=== PATIENT | male | born 1975 | race Two or more races ===

== ENCOUNTER 2024-08-02 20:17 | Inpatient (IN) | payer MEDICAID, SELFPAY ==
[2024-08-02 20:19] VITALS: BMI 23.3
--- NOTE | 2024-08-02 21:16 | EKG_ITS ---
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
[2024-08-02 21:27] VITALS: BP 163/90; PULSE 65; RESP 18; TEMP 37.2; O2SAT 99
--- NOTE | 2024-08-02 21:37 | PD.EDRME ---
Rapid Medical Screening Exam [facility] Arrival date/time: 08/02/24 20:17 49M with history of DM and alcohol use presents to ED with 2 days of epigastric pain that radiates to chest/back for 2 days. Patient was here about 6 years ago for similar symptoms and had pancreatitis then. Patient states symptoms are similar. Patient drank a lot of alcohol in the last 3 days. Chief Complaint: Abdominal Pain Vital signs: Vital Signs Temperature 98.9 F 08/02/24 21:27 Pulse Rate 65 08/02/24 21:27 Respiratory Rate 18 08/02/24 21:27 Blood Pressure 163/90 H 08/02/24 21:27 Pulse Oximetry (%) 99 08/02/24 21:27 Oxygen Delivery Method Room Air 08/02/24 21:27
[2024-08-02 22:01] LABS: Basophils % (Auto) 0 % (0-2.5); Eosinophils % (Auto) 0 % (0-10); Hematocrit 41.3 % (41.0-53.0); Hemoglobin 14.8 g/dL (13.5-16.0); Immature Granulocytes % (Auto) 1 % (0-0); Immature Granulocytes Auto 0.08 Thou/mm3 (0.00-0.00); Lymphocytes # (Auto) 0.9 Thou/mm3 (1.0-4.8); Lymphocytes % (Auto) 5 % (10-50); Mean Corpuscular HGB Conc 35.8 g/dl (31.0-37.0); Mean Corpuscular Volume 92 fL (80-100); Monocytes # (Auto) 0.7 Thou/mm3 (0.0-0.8); Monocytes % (Auto) 4 % (0-12); Neutrophils # (Auto) 15.4 Thou/mm3 (1.8-7.7); Neutrophils % (Auto) 90 % (37-80); Nucleated Red Blood Cell % 0 /100 WBC (0); Platelet Count 170 Thou/mm3 (140-440); RDW Standard Deviation 41.4 fL (35.1-43.9); Red Blood Count 4.49 Miln/mm3 (4.50-5.90); White Blood Count 17.1 Thou/mm3 (3.8-10.6)
[2024-08-02 22:22] LABS: Anion Gap 16 (7-16); Blood Urea Nitrogen 15 mg/dL (9-23); Carbon Dioxide 21.3 mMol/L (20.0-31.0); Chloride 99 mMol/L (98-107); Creatinine (Component) 0.8 mg/dL (0.6-1.3); Sodium 136 mMol/L (136-145)
[2024-08-02 22:23] LABS: Alanine Aminotransferase 30 U/L (10-49); Albumin, Serum 4.2 gm/dL (3.5-5.0); Albumin/Globulin Ratio 1.7 (1.2-2.2); Alcohol, Blood Medical < 10.0 mg/dL (0-10.0); Alkaline Phosphatase 115 U/L (46-116); Aspartate Amino Transferase 41 U/L (0-34); BUN/Creatinine Ratio 19 Ratio (12-20); Bilirubin,Total 1.7 mg/dL (0.3-1.2); Estimated Creatinine Clearance 96.1 mL/min (>60); Globulin 2.5 gm/dL (2.3-3.5); Glucose 173 mg/dL (74-106); Lipase 337 U/L (12-53); Osmolality,Calculated 276 (275-295); Total Protein 6.7 gm/dL (5.7-8.2); eGFR > 60 See Note
--- NOTE | 2024-08-02 22:50 | PC.NURSE ---
Pt to room 6 from lobby at this time; assumed care.
--- NOTE | 2024-08-02 22:53 | PD.EDABDPN ---
ED Abdominal Pain RME/HPI General Chief Complaint: Abdominal Pain Stated complaint: ABD,BACK,CHEST PAIN Arrival date/time: 08/02/24 20:17 RME / HPI RME / HPI narrative: 08/02/24 20:17 49M with history of DM and alcohol use presents to ED with 2 days of epigastric pain that radiates to chest/back for 2 days. Patient was here about 6 years ago for similar symptoms and had pancreatitis then. Patient states symptoms are similar. Patient drank a lot of alcohol in the last [address] Mckinnon?s Main ED Evaluation: 49yo male presents to the ED for a chief complaint of severe epigastric pain x 1 day. Patient states his pain radiates to his back, reporting he has previously experienced similar symptoms. states the patient has been drinking alcohol heavily for the last 3 days. Patient reports associated nausea. Denies any fever, chills, diarrhea, constipation or any other associated symptoms. No known allergies. Related Data Home Medications ?Medication ?Instructions ?Recorded ?Confirmed No Known Home Medications 05/11/19 05/11/19 Allergies Allergy/AdvReac Type Severity Reaction Status Date / Time No Known Allergies Allergy Verified 05/11/19 15:18 Review of Systems Review of Systems Systems Reviewed: All systems reviewed, normal except as documented Past Medical History Past Medical History NEUROLOGIC: Negative Neurological Disorders CARDIAC: Negative Cardiac Disorders or Congestive Heart Failure RESPIRATORY: Negative Chronic Obstructive Pulmonary Disease (COPD) GASTROINTESTINAL: Positive Gastrointestinal Disorders and Pancreatitis GENITOURINARY: Negative Genitourinary Disorders or Renal Disease MUSCULOSKELETAL: Negative Musculoskeletal Disorders ENDOCRINE: Negative Endocrine Disorders, Diabetes Mellitus Type 1 or Diabetes Mellitus Type 2 HEMATOLOGIC: Negative Blood Disorders OTHER HISTORY: Negative Autoimmune Disease, Anesthesia Reactions, MRSA, Clostridium Difficile or Cancer Family History FAMILY HISTORY: Negative Family Psychiatric Problems, Family Respiratory Disorders, Family Cardiac Disorders, Family Gastrointestinal Problems, Family Cancer, Family Surgery or Family Anesthesia Reaction Surgical History SURGICAL: Negative Endocrine Surgery, Ear Surgery, Abdominal Surgery, Nephrectomy, Joint Replacement, Neurologic Surgery or Vasectomy Social History SMOKING STATUS: Current every day smoker SECOND HAND EXPOSURE: Yes ED Exam Narrative Physical exam: GENERAL APPEARANCE: alert and oriented x 4, well-developed, well-nourished, no acute distress VITALS: All vitals were reviewed and the pulse ox is 99% on room air, which is normal according to my interpretation. HEENT: Normocephalic, atraumatic; pupils equal, round, reactive to light; EOMI; mucous membranes pink, moist; oropharynx clear NECK: Supple LUNGS: CTABL; no wheezes, no rales, no rhonchi HEART: Regular rate, regular rhythm; normal S1, S2; no murmurs ABDOMEN: non distended; normal BS; soft, [id number] epigastric tenderness, and of the upper abdomen generally; voluntary guarding, no rebound, no rigidity; no masses, no organomegaly, no hernia BACK: no CVA tenderness EXTREMITIES: atraumatic; no edema NEUROLOGIC: awake; alert and oriented x4; cranial nerves II-XII grossly intact; no focal sensory or motor deficits PSYCHIATRIC: appropriate mood and affect SKIN: warm, dry, normal color; no rashes Course Quality Measures none Orders Category Date Time Status Admit to Inpatient Status Routine Admission 08/03/24 00:44 Active Patient Condition Routine Admission 08/03/24 00:44 Ordered Bedside Blood Glucose AC Care 08/03/24 01:[address] Screening NOW Care 08/02/24 23:52 Active 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 Care 08/02/24 23:38 Active Continuous Pulse Oximetry STAT Care 08/02/24 23:38 Active EKG (ED ONLY) *Do not use* NOW Care 08/02/24 21:16 Completed Insert IV STAT Care 08/02/24 23:37 Active NPO NOW Care 08/03/24 01:04 Active NPO STAT Care 08/02/24 23:37 Active Notify provider NEEDED Care 08/03/24 00:44 Active Obtain weight X1 Care 08/03/24 00:50 Active Vital Signs, Non-Routine Q4H Care 08/03/24 01:00 Ordered Vital Signs, Non-Routine Q4H Care 08/03/24 05:00 Ordered Vital Signs, Non-Routine Q4H Care 08/03/24 09:00 Ordered Vital Signs, Non-Routine Q4H Care 08/03/24 13:00 Ordered Vital Signs, Non-Routine Q4H Care 08/03/24 17:00 Ordered Vital Signs, Non-Routine Q4H Care 08/03/24 21:00 Ordered Diet NPO (NOW) Diet 08/03/24 01:[address] abdomen pelvis w con Stat Exams 08/02/24 23:52 Ordered EKG (ED Only) Stat Exams 08/02/24 21:16 Draft XR chest 1V portable Stat Exams 08/02/24 23:50 Completed Alcohol, Blood Medical Stat Lab 08/02/24 21:46 Completed CBC AM DRAW Lab 08/03/24 05:00 Ordered CBC AM DRAW Lab 08/04/24 05:00 Ordered CBC AM DRAW Lab 08/05/24 05:00 Ordered CBC Stat Lab 08/02/24 21:46 Completed CMP [Comprehensive Metabolic Panel] Stat Lab 08/02/24 21:46 Completed Comprehensive Metabolic Panel AM DRAW Lab 08/03/24 05:00 Ordered Comprehensive Metabolic Panel AM DRAW Lab 08/04/24 05:00 Ordered Comprehensive Metabolic Panel AM DRAW Lab 08/05/24 05:00 Ordered Drug Screen,Urine Stat Lab 08/03/24 01:04 Ordered Folate Stat Lab 08/03/24 00:57 Ordered Folate, RBC* Stat Lab 08/03/24 Ordered Lipase Stat Lab 08/02/24 21:46 Completed Lipid Panel Routine Lab 08/03/24 00:53 Stop Req Lipid Panel Stat Lab 08/03/24 01:08 Ordered Magnesium AM DRAW Lab 08/03/24 05:00 Ordered Magnesium AM DRAW Lab 08/04/24 05:00 Ordered Magnesium AM DRAW Lab 08/05/24 05:00 Ordered Magnesium Stat Lab 08/02/24 21:46 Completed Partial Thromboplastin Time AM DRAW Lab 08/04/24 05:00 Ordered Partial Thromboplastin Time Stat Lab 08/02/24 21:46 Completed Phosphorous AM DRAW Lab 08/04/24 05:00 Ordered Phosphorous AM DRAW Lab 08/05/24 05:00 Ordered Phosphorous AM DRAW Lab 08/06/24 05:00 Ordered Prothrombin Time with INR AM DRAW Lab 08/04/24 05:00 Ordered Prothrombin Time with INR Stat Lab 08/02/24 21:46 Completed Thyroid Stimulating Hormone AM DRAW Lab 08/03/24 05:00 Ordered Acetaminophen Tab [Tylenol Tab] Med 08/03/24 00:50 Active 650 mg PO Q6H PRN Atorvastatin Calcium [Lipitor] Med 08/03/24 21:00 Ordered 40 mg PO HS Dextrose 50% Syr [D50w Syringe Abboject] Med 08/03/24 01:02 Active 25 ml IV Q15MIN PRN Dextrose 50% Syr [D50w Syringe Abboject] Med 08/03/24 01:02 Active 50 ml IV Q15MIN PRN Enoxaparin [Lovenox] Med 08/03/24 09:00 Ordered 40 mg SC QDAY Folic Acid Med 08/03/24 09:00 Ordered 1 mg PO BID Glucagon Inj Med 08/03/24 01:02 Active 1 mg IM Q15MIN PRN HYDROcodone*/APAP 5/325 [Carver 5/325] Med 08/03/24 00:50 Active 1 tab PO Q6HR PRN HYDROmorphone INJ [Dilaudid Inj] Med 08/02/24 23:45 Active 1 mg IVP Q30M PRN INSULIN LISPRO (AdmeLOG) [HumaLOG] Med 08/03/24 07:30 Ordered See Protocol SC AC LORazepam [Ativan Inj] Med 08/03/24 00:57 Active 1 mg IV Q2HR PRN LORazepam [Ativan] Med 08/03/24 00:57 Active 1 mg PO Q4HR PRN Ondansetron Inj [Zofran Inj] Med 08/03/24 00:50 Ordered 4 mg IV Q6H PRN Ondansetron Inj [Zofran Inj] Med 08/02/24 23:39 Discontinued 4 mg IV X1 ONE Pantoprazole [Protonix] Med 08/03/24 09:00 Ordered 40 mg PO QDAY Ringers Lactated 1000 ml [Lactated Ringers] 1,000 ml Med 08/03/24 01:00 Ordered IV 200 mls/hr Sodium Chloride 0.9% 1000 ml [Ns] 1,000 ml Med 08/02/24 23:37 Discontinued IV 999 mls/hr Thiamine [Vitamin B-1] Med 08/03/24 09:00 Ordered 100 mg PO BID Code Status Routine Oth 08/03/24 00:44 Ordered Vital Signs Vital signs: Vital Signs Temperature 98.9 F 08/02/24 21:27 Pulse Rate 65 08/02/24 21:27 Respiratory Rate 18 08/02/24 21:27 Blood Pressure 163/90 H 08/02/24 21:27 Pulse Oximetry (%) 99 08/02/24 21:27 Oxygen Delivery Method Room Air 08/02/24 21:27 Abdominal Pain MDM MDM Narrative MDM Narrative:: Scribe Attestation: 08/02/24 - Sabiha Joya am scribing for and in the presence of Dr. Mckinnon. Patient data External records reviewed:: [facility] previous records (Per chart review, patient was admitted here on 05/11/19 for abdominal pain.) Clinical information provided by:: patient Social determinants that could affect healthcare access:: alcohol use Patient has the following chronic illnesses:: none How is presenting disease/condition affected by chronic disease/condition?: no chronic disease Evaluation data The following diagnostics were reviewed and interpreted by me:: lab results and EKG tracing(s) Lab and/or radiology exams considered but not ordered:: none Interpretation Summary: WBC count is elevated at 17.1, Glucose is 173, Lipase is elevated at 337, Blood Alcohol is negative, according to my interpretation. EKG done at 2130, NSR, rate of 61, normal axis, no ectopy, no acute ischemia, according to my interpretation. Medications / Prescriptions Medications or Prescriptions considered but not ordered:: none Medication administrations:: Medication Administration History Acetaminophen (Acetaminophen 325 Mg Tablet) 650 mg PO Q6H PRN PRN Reason: Fever >100 or pain 1-3 Stop: 09/02/24 00:49 Hydrocodone Bitart/Acetaminophen (Hydrocodone/Apap 5/325 Tablet) 1 tab PO Q6HR PRN PRN Reason: PAIN SCALE 4-6 (Moderate Stop: 08/08/24 00:49 Atorvastatin Calcium (Atorvastatin Calcium 20 Mg Tablet) 40 mg PO HS QUOC Stop: 09/02/24 20:59 Dextrose (Dextrose 50%-Water Inj 50 Ml Syringe) 25 ml IV Q15MIN PRN PRN Reason: BG 50-70 responsive npo pt Stop: 09/02/24 01:01 Dextrose (Dextrose 50%-Water Inj 50 Ml Syringe) 50 ml IV Q15MIN PRN PRN Reason: BG <50 OR BG <70 & pt unresponsive Stop: 09/02/24 01:01 Enoxaparin Sodium (Enoxaparin Sod Inj 40 Mg/0.4 Ml Syringe) 40 mg SC QDAY QUOC Stop: 08/17/24 08:59 Folic Acid (Folic Acid 1 Mg Tablet) 1 mg PO BID QUOC Stop: 08/08/24 08:59 Glucagon (Glucagon Inj 1 Mg Vial) 1 mg IM Q15MIN PRN PRN Reason: BG <70, and no IV access Hydromorphone HCl (Hydromorphone Inj 2 Mg/Ml Vial) 1 mg IVP Q30M PRN PRN Reason: PAIN Stop: 08/07/24 23:44 Last Admin: 08/02/24 23:55 Dose: 1 mg Documented By: KG Lactated Ringer's (Lactated Ringers) 1,000 mls @ 200 mls/hr IV .Q5H [facility] Stop: 09/02/24 00:59 Insulin Human Lispro (Insulin Lispro (Admelog) 1 Unit/0.01 Ml Unit) 0 unit SC AC [facility]; Protocol Stop: 09/02/24 07:29 Lorazepam (Lorazepam 0.5 Mg Tablet) 1 mg PO Q4HR PRN PRN Reason: CIWA SCORE 7-11 Stop: 08/08/24 00:56 Lorazepam (Lorazepam 2 Mg/Ml Vial) 1 mg IV Q2HR PRN PRN Reason: CIWA SCORE 14-19 Stop: 08/08/24 00:56 Ondansetron HCl (Ondansetron Inj 2 Mg/Ml Inj 2 Ml) 4 mg IV Q6H PRN; Protocol PRN Reason: NAUSEA OR VOMITING Stop: 09/02/24 00:49 Pantoprazole Sodium (Pantoprazole 40 Mg Tablet) 40 mg PO QDAY [facility] Stop: 09/02/24 08:59 Thiamine HCl (Thiamine 100 Mg Tablet) 100 mg PO BID [facility] Stop: 08/08/24 08:59 Discontinued Medications Sodium Chloride (Ns) 1,000 mls @ 999 mls/hr IV .Q1H1M ONE Stop: 08/03/24 00:37 Last Admin: 08/02/24 23:53 Dose: 999 mls/hr Documented By: KG Ondansetron HCl (Ondansetron Inj 2 Mg/Ml Inj 2 Ml) 4 mg IV X1 ONE; Protocol Stop: 08/02/24 23:40 Last Admin: 08/02/24 23:55 Dose: 4 mg Documented By: KG see above Consultations Consultation(s) initiated? (list below): Yes Consultation #1 (Physician, Specialty, Details): Discussed case with Dr. Elias, attending Dr. Prince from Hospitalist service regarding admission. Discussed patients ED course, exam findings, labs, and radiology results. Requests CT abdomen pelvis. Accepts the patient for admission. Time: 23:47 Diagnosis Differential diagnosis abdominal pain: diverticulitis and pancreatitis Most likely diagnosis given after review of the tests above:: acute pancreatitis Admission Indicated Admission indicated?: indicated Admission Request Was there a request for admission?: Yes Admission Attestation Admission request attestation: Discussed case with [] from Hospitalist service regarding admission. Discussed patients ED course, exam findings, labs, and radiology results. The Hospitalist [agrees,declines] to accept the patient for admission. Disposition Plan Disposition Plan: Admit Discharge Plan Plan Patient Disposition: Admit Acute Care w/in Hospital Prescriptions/Referrals Prescriptions/Med Rec: No Action No Known Home Medications Referrals: No Primary/Family,Physician [Primary Care Provider] - In 1 week Problem List Clinical Impression: Acute pancreatitis Patient/Caregiver Discharge Instructions Print Language: Romansh Stand Alone Forms: Karlene Award Info., Patient Portal Info Letter
[2024-08-02 22:57] VITALS: BP 188/101; PULSE 60; RESP 19; TEMP 37.1; O2SAT 100
--- NOTE | 2024-08-02 23:04 | PC.NURSE ---
Dr. Mckinnon at the bedside at this time.
--- NOTE | 2024-08-02 23:35 | PC.NURSE ---
Dr. Mckinnon at the bedside.
--- NOTE | 2024-08-02 23:50 | XR_ITS ---
Examination: AP chest single view Technique: AP portable upright chest single view Exam date and time: August 02, 2024 1149 hrs. Comparison May 11, 2019 Indications: Abdominal pain nausea today Findings: Normal heart size Lungs are clear. The osseous structures are intact Impression: No active disease
--- NOTE | 2024-08-02 23:52 | XR_ITS ---
Examination: CT abdomen with intravenous contrast CT pelvis with intravenous contrast 2-D coronal reconstructions 2-D sagittal reconstructions Date and time of exam:August 03, 2024 at 0220 hrs. Indications: Upper abdominal pain today with elevated lipase on laboratory examination. CTDI: vol (mGy) 5.38 DLP: (mGycm) 299 Technique: Multiple axial sections of the abdomen and pelvis have been obtained. 64 slice high-resolution scanner used. 3 mm axial sections have been obtained, post intravenous injection 60 cc [id number] 2-D sagittal, coronal reconstructions obtained. Low dose protocols were performed. One or more of the following dose reduction techniques were used; automated exposure control, adjustment of the mA and/or KV according to patient size, use of iterative reconstruction technique. Findings: No focal liver or splenic lesions No definite gallstones Extensive edema surrounding the pancreas no pseudocyst No renal or ureteral calculi, no hydronephrosis Aortic calcification no aneurysmal dilatation Normal appendix No bowel obstruction Urinary bladder intact Impression: Acute pancreatitis
[2024-08-02] MEDS: SODIUM CHLORIDE 0.9% 1000 ML 1,000 ML 999 ML IV (23:53)
[2024-08-02] MEDS: HYDROmorphone INJ 2 MG/ML VIAL 1 MG IVP (23:55)
[2024-08-02] MEDS: ONDANSETRON INJ 2 MG/ML INJ 2 ML 4 MG IV (23:55)
[2024-08-02 23:57] LABS: Magnesium 1.5 mg/dL (1.6-2.6)
[2024-08-03] VITALS (9 sets, daily range): BP systolic 152–174; BP diastolic 87–108; PULSE 59–90; RESP 15–23; TEMP 36.5–37.2; O2SAT 95–100; BMI 22.8
[2024-08-03 00:01] LABS: Partial Thromboplastin Time 23.1 Seconds (22.0-36.0); Prothrombin Time 10.9 Seconds (9.0-12.2)
--- NOTE | 2024-08-03 00:17 | PC.NURSE ---
Resident at the bedside speaking with patient.
--- NOTE | 2024-08-03 01:08 | ESHP_ITS ---
Documentation for date of: 08/03/24 [facility] History of Present Illness History of present illness: Flash is a 49 y/o male with PMHx of previous pancreatitis, hyperlipidemia, insulin-dependent type 2 diabetes mellitus, who comes in for an evaluation of abdominal pain radiating to back, rated 10 out of 10 with associated vomiting over 10 episodes, started this morning when waking up. Patient reports he has had symptoms like this before, however symptoms and severity are the same as previous times. He notes that he has been celebrating a quaker event for the past 3 days and has been drinking a bottle of tequila by himself for the past 3 days. He notes that he had no blood in his vomit and it was described as green in nature. He denies any chest pain or shortness of breath. He says that he has not been able to tolerate food orally, however has been able to drink water. He says he vomited over 10 times. He denies any recent sicknesses or recent travel. No one in his house has similar symptoms. His bowel movements are normal. No other complaints this time. Says that he burned himself under his bellybutton about 2 weeks. ED course: Patient arrived to the ED afebrile, respiratory of 18, heart rate 65, blood pressure 162/90, saturating 89% room air. He was worked up and was found to have a sodium of 136, potassium 4, BUN/creatinine 15 and 0.8 respectively, glucose 173, white count of 17.1, hemoglobin 15, coag panel negative, ethyl alcohol level unremarkable, lipase 337, T. bili 1.7, ALT 4130, anion gap of 16. CT abdomen pelvis pending. He was given 1 L NS, Zofran x 1, Dilaudid 1 mg x 1. Medicine was consulted and patient admitted to floors. Past medical history:As above Surgical history: Some foot ankle surgery for broken foot Medicines: Lantus 20 units in the morning, 14 units at night. Lipitor 40 at bedtime Allergies: No known allergies Family history: Family history positive for diabetes, positive for heart disease, however no stroke history. Social history: Born in [place], came to [place] in the 90s. Has worked in the [employer] ever since. , has 2 kids who live with him. Says that he has been a heavy drinker in the past, has not drank heavy in over a year. He did say that he drank a lot over the past 3 days because of a celebration of an event. Has smokes 6 to 8 cigarettes for the past 30 years. No history of IV or oral drug use. Review of Systems Review of Systems Narrative Review of Systems: Constitutional: No fever, chills, fatigue, weakness, weight loss HEENT: No eye pain, vision loss, ear pain, hearing loss, dysphagia, Cardiovascular: No chest pain, palpitations, edema, pain with walking Respiratory: No cough, shortness of breath, wheezing GI: Positive nausea, vomiting, abdominal pain, no constipation, blood in stool, loss of appetite, heartburn Extremities: No presence of pitting edema MSK: Positive back pain, no joint pain, joint swelling Neuro: No dizziness, numbness, weakness, headaches, seizures, tremors Psych: No anxiety, depression Exam Vital Signs Temp Pulse Resp BP Pulse Ox O2 Del Method 98.0 F 59 L 18 161/87 H 100 Room Air 08/03/24 00:24 08/03/24 00:24 08/03/24 00:24 08/03/24 00:24 08/03/24 00:24 08/03/24 00:24 Narrative Exam General: AAOx3, NAD, appears to be slightly red, some male pattern baldness, yakut speaking male HEENT: Dry mucous membranes, conjunctiva clear, EOMI, PERRLA, pupils appear to be slightly constricted bilaterally, no nystagmus Cardiovascular: S1, S2, radial pulses +2 bilat, RRR Pulmonary: CTAB bilat no cough, no wheezing GI: Tenderness to palpitation in left and right upper quadrants, no guarding, rigidity, rebound tenderness or distension, burn nisha inferior to umbilicus that is scabbing Extremities: No presence of trace or pitting edema in lower extremities bilaterally, dorsalis pedis pulses +2 bilaterally Neuro: AAOx3, no focal motor or sensory deficits in the UE or LE bilat, no tremors noted Psych: Good judgement, thought and behavior Results: Labs 08/02/24 21:46 08/02/24 21:46 Labs: Short CBC 08/02/24 Range/Units 21:46 WBC 17.1 H (3.8-10.6) Thou/mm3 Hgb 14.8 (13.5-16.0) g/dL Hct 41.3 (41.0-53.0) % Plt Count 170 (140-440) Thou/mm3 BMP 08/02/24 21:46 Sodium 136 Potassium 4.0 Chloride 99 Carbon Dioxide 21.3 BUN 15 Creatinine 0.8 Glucose 173 H Calcium 9.0 Liver Function 08/02/24 Range/Units 21:46 Total Bilirubin 1.7 H (0.3-1.2) mg/dL AST 41 H (0-34) U/L ALT 30 (10-49) U/L Alkaline Phosphatase 115 (46-116) U/L Albumin 4.2 (3.5-5.0) gm/dL Quality Measures Quality Measures none Medications Home Medications and Allergies Home Medications ?Medication ?Instructions ?Recorded ?Confirmed ?Type No Known Home Medications 05/11/1905/01 History Allergies Allergy/AdvReac Type Severity Reaction Status Date / Time No Known Allergies Allergy Verified 05/11/19 15:18 Visit Medications Acetaminophen (Acetaminophen 325 Mg Tablet) 650 mg PO Q6H PRN PRN Reason: Fever >100 or pain 1-3 Stop: 09/02/24 00:49 Hydrocodone Bitart/Acetaminophen (Hydrocodone/Apap 5/325 Tablet) 1 tab PO Q6HR PRN PRN Reason: PAIN SCALE 4-6 (Moderate Stop: 08/08/24 00:49 Atorvastatin Calcium (Atorvastatin Calcium 20 Mg Tablet) 40 mg PO HS QUOC Stop: 09/02/24 20:59 Dextrose (Dextrose 50%-Water Inj 50 Ml Syringe) 25 ml IV Q15MIN PRN PRN Reason: BG 50-70 responsive npo pt Stop: 09/02/24 01:01 Dextrose (Dextrose 50%-Water Inj 50 Ml Syringe) 50 ml IV Q15MIN PRN PRN Reason: BG <50 OR BG <70 & pt unresponsive Stop: 09/02/24 01:01 Enoxaparin Sodium (Enoxaparin Sod Inj 40 Mg/0.4 Ml Syringe) 40 mg SC QDAY QUOC Stop: 08/17/24 08:59 Folic Acid (Folic Acid 1 Mg Tablet) 1 mg PO BID QUOC Stop: 08/08/24 08:59 Glucagon (Glucagon Inj 1 Mg Vial) 1 mg IM Q15MIN PRN PRN Reason: BG <70, and no IV access Hydromorphone HCl (Hydromorphone Inj 2 Mg/Ml Vial) 1 mg IVP Q30M PRN PRN Reason: PAIN Stop: 08/07/24 23:44 Last Admin: 08/02/24 23:55 Dose: 1 mg Lactated Ringer's (Lactated Ringers) 1,000 mls @ 200 mls/hr IV .Q5H [facility] Stop: 09/02/24 00:59 Insulin Human Lispro (Insulin Lispro (Admelog) 1 Unit/0.01 Ml Unit) 0 unit SC AC [facility]; Protocol Stop: 09/02/24 07:29 Lorazepam (Lorazepam 0.5 Mg Tablet) 1 mg PO Q4HR PRN PRN Reason: CIWA SCORE 7-11 Stop: 08/08/24 00:56 Lorazepam (Lorazepam 2 Mg/Ml Vial) 1 mg IV Q2HR PRN PRN Reason: CIWA SCORE 14-19 Stop: 08/08/24 00:56 Ondansetron HCl (Ondansetron Inj 2 Mg/Ml Inj 2 Ml) 4 mg IV Q6H PRN; Protocol PRN Reason: NAUSEA OR VOMITING Stop: 09/02/24 00:49 Pantoprazole Sodium (Pantoprazole 40 Mg Tablet) 40 mg PO QDAY [facility] Stop: 09/02/24 08:59 Thiamine HCl (Thiamine 100 Mg Tablet) 100 mg PO BID [facility] Stop: 08/08/24 08:59 Discontinued Medications Sodium Chloride (Ns) 1,000 mls @ 999 mls/hr IV .Q1H1M ONE Stop: 08/03/24 00:37 Last Admin: 08/02/24 23:53 Dose: 999 mls/hr Ondansetron HCl (Ondansetron Inj 2 Mg/Ml Inj 2 Ml) 4 mg IV X1 ONE; Protocol Stop: 08/02/24 23:40 Last Admin: 08/02/24 23:55 Dose: 4 mg Assessment & Plan Plan Assessment Flash is a 49 y/o male with PMHx of previous pancreatitis, hyperlipidemia, insulin-dependent type 2 diabetes mellitus who is admitted for acute alcoholic pancreatitis. #Alcohol pancreatitis Patient has been drinking a lot of alcohol the past 3 days, likely alcoholic pancreatitis Will need to see if patient has hypertriglyceridemia Lipase 330s, pain radiating to the back Will need to see if patient has gallstones Patient does not seem to be withdrawing at this time Alcohol levels below 10 Patient has had admissions previously for pancreatitis likely related to alcohol Previous imaging does not show any pancreatic pseudocyst Previous chart review shows lipase being up to ~1100 in 2020 Plan: ? LR at 200 cc/hour ? Antiemetics ? Pain control patient ? Follow-up lipid panel ? CIWA ? Folate and thiamine ? Follow-up CT abdomen and pelvis #History of hyperlipidemia Chronic Plan: ? Follow-up lipid panel ? Lipitor 40 mg at bedtime #Diabetes mellitus type II, insulin-dependent Takes Lantus 20 units in the morning, 14 units at night Blood glucose 174 and now Will consider resuming home regimen of insulin Plan: ? Sliding scale insulin ? Hypoglycemic protocol in place ? Blood sugar checks q6h #? Alcohol abuse disorder Pt does say he does not drink heavy anymore, however has had admissions for previous episodes of pancreatitis likely related to alcohol Plan: ? security services manager referral ? CIWA ? Folate and thiamine #Health Maintenance Disposition: Telemetry DVT prophylaxis: Lovenox GI prophylaxis: Protonix Diet: N.p.o. CODE STATUS: Full Patient seen and care discussed with my attending physician, Dr. Suresh Collier, PGY-1 Attending Provider Attestation/Addendum I attest that I was physically present for the evaluation, physical examination, lab and imaging review of the patient with the residents. I discussed the case with the residents and agree with the findings and plans of care as documented above. Patient is a 49 years old male with past medical history of pancreatitis, hyperlipidemia, diabetes mellitus who presented to the ED with complaint of abdominal pain radiating to his back. She also had multiple episodes of vomiting. Patient has a history of heavy alcohol use in the past, and this time he has been celebrating a quaker event for past 3 days and drinking heavily. In the ED, his blood pressure is 162/90, rest of the vitals are within normal limits. He also has a WBC of 17.1, lipase 337, total bilirubin 1.7, AST 41, ALT 30. His abdominal is tender to palpate in upper abdomen. CT abdomen/pelvis was done, which shows acute pancreatitis. We will admit the patient for management of acute pancreatitis secondary to alcohol abuse. Will start him on aggressive IV hydration, antiemetics, analgesics. Calcium level within normal limits, we will obtain lipid panel. We will also start him on CIWA protocol, folate, thiamine and multivitamin. Insulin regimen for diabetes. Val Prince MD
[2024-08-03] MEDS: RINGERS LACTATED 1000 ML 1,000 ML 200 ML IV ×5 (01:30→22:48)
[2024-08-03] MEDS: HYDROmorphone INJ 2 MG/ML VIAL 1 MG IVP ×4 (03:07→16:52)
[2024-08-03 03:21] LABS: Cardiac Risk Estimate 2.7 RATIO (4.0-6.7); Cholesterol 202 mg/dL (132-200); HDL Cholesterol 76 mg/dL (40-60); Triglycerides 892 mg/dL (30-150)
[2024-08-03 03:48] LABS: Folate 10.89 ng/mL (>5.38)
--- NOTE | 2024-08-03 03:49 | PRELIM_ITS ---
CT scan of the abdomen and pelvis with intravenous contrast (axial sections with sagittal and coronal reformats) August 03, 2024 at 0218 hours Clinical History: Epigastric and upper abdominal pain. Comparison: None. Findings: The lung bases are clear. The gallbladder, spleen, kidneys and adrenals are unremarkable. Liver steatosis. Peripancreatic fat stranding, no pancreatic ductal dilatation. No collections. No evidence of bowel obstruction. The appendix is within normal limits. There is no mesenteric or retroperitoneal adenopathy. The urinary bladder is unremarkable. There is no free fluid or free air. The osseous structures are unremarkable. Impression: Acute pancreatitis. Report Electronically Signed By: Kenney Marquez 08/03/2024 3:47:48 AM [EST]
--- NOTE | 2024-08-03 04:38 | PC.NURSE ---
[employer] downtime occurred on <08/03/24> from <0200> to <0320> >.
[2024-08-03] MEDS: ONDANSETRON INJ 2 MG/ML INJ 2 ML 4 MG IV (05:49)
[2024-08-03 05:50] LABS: Basophils % (Auto) 0 % (0-2.5); Eosinophils % (Auto) 0 % (0-10); Hematocrit 40.3 % (41.0-53.0); Hemoglobin 14.2 g/dL (13.5-16.0); Immature Granulocytes % (Auto) 1 % (0-0); Immature Granulocytes Auto 0.13 Thou/mm3 (0.00-0.00); Lymphocytes # (Auto) 0.6 Thou/mm3 (1.0-4.8); Lymphocytes % (Auto) 4 % (10-50); Mean Corpuscular HGB Conc 35.2 g/dl (31.0-37.0); Mean Corpuscular Hemoglobin 32.6 pg (25.0-35.0); Mean Corpuscular Volume 93 fL (80-100); Monocytes # (Auto) 0.5 Thou/mm3 (0.0-0.8); Monocytes % (Auto) 3 % (0-12); Neutrophils # (Auto) 14.6 Thou/mm3 (1.8-7.7); Neutrophils % (Auto) 92 % (37-80); Nucleated Red Blood Cell % 0 /100 WBC (0); Platelet Count 146 Thou/mm3 (140-440); RDW Standard Deviation 41.2 fL (35.1-43.9); Red Blood Count 4.35 Miln/mm3 (4.50-5.90); White Blood Count 15.8 Thou/mm3 (3.8-10.6)
--- NOTE | 2024-08-03 06:20 | PC.NURSE ---
notified Dr. Hamilton of patent's bp 178/95, no new orders, notified of unrelieved pain and new order for dilaudid push.
[2024-08-03 06:24] LABS: Alanine Aminotransferase 29 U/L (10-49); Albumin, Serum 3.8 gm/dL (3.5-5.0); Albumin/Globulin Ratio 1.7 (1.2-2.2); Alkaline Phosphatase 106 U/L (46-116); Anion Gap 10 (7-16); Aspartate Amino Transferase 33 U/L (0-34); BUN/Creatinine Ratio 18 Ratio (12-20); Bilirubin,Total 1.9 mg/dL (0.3-1.2); Blood Urea Nitrogen 11 mg/dL (9-23); Calcium 8.5 mg/dL (8.3-10.6); Calcium (Corrected) 8.7 mg/dL (8.5-10.1); Carbon Dioxide 24.1 mMol/L (20.0-31.0); Chloride 103 mMol/L (98-107); Creatinine (Component) 0.6 mg/dL (0.6-1.3); Estimated Creatinine Clearance 128.1 mL/min (>60); Globulin 2.2 gm/dL (2.3-3.5); Glucose 168 mg/dL (74-106); Magnesium 1.5 mg/dL (1.6-2.6); Osmolality,Calculated 277 (275-295); Potassium 3.7 mMol/L (3.4-5.1); Sodium 137 mMol/L (136-145); Thyroid Stimulating Hormone 1.75 uIU/mL (0.55-4.78); eGFR > 60 See Note
[2024-08-03] MEDS: ENOXAPARIN SOD INJ 40 MG/0.4 ML SYRINGE SC (08:34)
[2024-08-03] MEDS: FOLIC ACID 1 MG TABLET PO ×2 (08:34→20:02)
[2024-08-03] MEDS: THIAMINE 100 MG TABLET PO ×2 (08:34→20:01)
[2024-08-03] MEDS: PANTOPRAZOLE 40 MG TABLET PO (08:34)
--- NOTE | 2024-08-03 09:34 | XR_ITS ---
Examination: Abdomen sonogram, Limited Date and time of exam: August 03, 2024 1144 hours INDICATIONS: Epigastric pain beginning 8 days ago, diagnosis pancreatitis on CT study August 03, 2024 Technique: Real-time moreno scale transabdominal sonographic images of the upper abdomen obtained. Findings: Normal gallbladder Normal common bile duct 0.4 cm Pancreas 4.0 cm with lobular contour Liver 15 cm fatty infiltration smooth contour Normal hepatopedal portal venous flow Patent IVC IMPRESSION: Normal gallbladder Enlarged pancreas, please see the CT abdomen pelvis report this morning
[2024-08-03 09:49] LABS: Amphetamine/Methamp Scrn,U Negative (Negative); Barbiturate Screen,Urine Negative (Negative); Benzodiazepines Screen,Urine Negative (Negative); Benzoylecgonine Screen, Ur Negative (Negative); Fentanyl Screen,Urine Negative (Negative); Opiate Screen,Urine Positive (Negative); THC Screen,Urine Negative (Negative)
[2024-08-03] MEDS: Magnesium Sulfate 4 GM Ivpb 4 GM/50 ML BAG IV (10:04)
[2024-08-03] MEDS: POTASSIUM CHLORIDE 10% 20 MEQ/15 ML UDC 40 MEQ PO (10:04)
[2024-08-03] MEDS: gemfibroziL 600 MG TABLET PO (10:04)
[2024-08-03] MEDS: chlordiazePOXIDE HCl 25 MG CAPSULE PO ×3 (10:10→21:38)
--- NOTE | 2024-08-03 10:17 | ESPR_ITS ---
<Statement entered by Keshia Vera MD - 08/03/24 14:29> I discussed with and supervised the intern architect physician who took care of this patient. I personally saw and examined the patient and discussed the assessment and plan with the entire medicine team, including my attending Dr. Shah, I agree with the assessment and plan as documented below. This morning the bedside patient stated feeling better otherwise he endorsed that he still present abdominal pain radiated to the back that has been well-controlled at the moment denied new episode of vomiting, CT abdomen pelvis showed pancreatitis, patient present hypertriglyceridemia with triglycerides 892 for which we will start gemfibrozil 600 p.o. daily we will continue IV fluids and we will try clear liquid diet and advance as tolerated. Patient denied any alcohol withdrawal symptoms otherwise patient present tremors on bilateral upper extremities we will continue CIWA protocol. Patient seen and examined at bedside today. Labs and imaging reviewed. Keshia Vera MD PGY-3 Disclaimer: Despite multiple revisions, due to the dictation software being used, the document bellow may not be free of grammatical errors including phonetic/typographic errors. However, this does not deter from our commitment to providing health care in the patient's best interest in mind. Documentation for date of: 08/03/24 Subjective Subjective Interval history: Patient seen today at the bedside fine awake, alert, oriented x 3. No overnight events reported. States still having some abdominal pain however has improved, was asked if he would like to eat stated restraint due to continued abdominal pain. Last drink was on Thursday, CIWA score 4 with tremors with extended arms however no nausea, no vomiting, no tactile disturbances, no hallucinations, no auditory disturbances. Gallbladder ultrasound was ordered to rule out any gallstones. Will continue current management with aggressive IV hydration Exam Vital Signs Temp Pulse Resp BP Pulse Ox O2 Del Method 98.0 F 66 23 H 163/96 H 95 Room Air 08/03/24 08:00 08/03/24 08:00 08/03/24 08:00 08/03/24 08:00 08/03/24 08:00 08/03/24 08:00 Narrative Exam Physical Exam GENERAL: NAD, AAOx3 HEENT: Moist mucosa. Eyes open, symmetrical, & clear CARDIO: Heart RRR, no obvious murmurs PULM: No noted coughing/dyspnea CTA B/L, no R/W/R GI: Abdomen soft, nondistended, pain on palpation in the epigastric region SKIN/MSK/EXT: Burn injury below the umbilicus, no pain on palpation. Pedal pulses present B/L NEURO: AAOx3, tremors in upper extremities when held extended, able to move all 4 extremities Objective Labs 08/03/24 05:30 08/03/24 05:30 Labs: Laboratory Results - last 24 hr 08/02/24 08/03/24 08/03/24 21:46 00:00 05:30 WBC 17.1 H 15.8 H RBC 4.49 L 4.35 L Hgb 14.8 14.2 Hct 41.3 40.3 L MCV 92 93 MCH 33.0 32.6 MCHC 35.8 35.2 RDW Std Deviation 41.4 41.2 Plt Count 170 146 Neut % (Auto) 90 H 92 H Lymph % (Auto) 5 L 4 L [place] % (Auto) 4 3 Eos % (Auto) 0 0 Baso % (Auto) 0 0 Neut # (Auto) 15.4 H 14.6 H Lymph # (Auto) 0.9 L 0.6 L [place] # (Auto) 0.7 0.5 Eos # (Auto) 0.0 0.0 Baso # (Auto) 0.0 0.0 Immature Gran # (Auto) 0.08 H 0.13 H Absolute Nucleated RBC 0.00 0.00 Immature Gran % 1 H 1 H Nucleated RBC % 0 0 PT 10.9 INR 1.0 APTT 23.1 Sodium 136 137 Potassium 4.0 3.7 Chloride 99 103 Carbon Dioxide 21.3 24.1 Anion Gap 16 10 BUN 15 11 Creatinine 0.8 0.6 Estim Creat Clear Calc 96.1 128.1 eGFR > 60 > 60 BUN/Creatinine Ratio 19 18 Glucose 173 H 168 H Calculated Osmolality 276 277 Calcium 9.0 8.5 Corrected Calcium 9.0 8.7 Magnesium 1.5 L 1.5 L Total Bilirubin 1.7 H 1.9 H AST 41 H 33 ALT 30 29 Alkaline Phosphatase 115 106 Total Protein 6.7 6.0 Albumin 4.2 3.8 Globulin 2.5 2.2 L Albumin/Globulin Ratio 1.7 1.7 Triglycerides 892 H Cholesterol 202 H LDL Cholesterol, Calc TNP HDL Cholesterol 76 H Cholesterol/HDL Ratio 2.7 L Lipase 337 H Folate 10.89 TSH 1.75 Urine Opiates Screen Urine Fentanyl Screen Ur Barbiturates Screen U Amphetamin/Meth Scrn U Benzodiazepines Scrn U Cocaine Metab Screen U Marijuana (THC) Screen Ethyl Alcohol < 10.0 08/03/24 06:56 WBC RBC Hgb Hct MCV MCH MCHC RDW Std Deviation Plt Count Neut % (Auto) Lymph % (Auto) [place] % (Auto) Eos % (Auto) Baso % (Auto) Neut # (Auto) Lymph # (Auto) [place] # (Auto) Eos # (Auto) Baso # (Auto) Immature Gran # (Auto) Absolute Nucleated RBC Immature Gran % Nucleated RBC % PT INR APTT Sodium Potassium Chloride Carbon Dioxide Anion Gap BUN Creatinine Estim Creat Clear Calc eGFR BUN/Creatinine Ratio Glucose Calculated Osmolality Calcium Corrected Calcium Magnesium Total Bilirubin AST ALT Alkaline Phosphatase Total Protein Albumin Globulin Albumin/Globulin Ratio Triglycerides Cholesterol LDL Cholesterol, Calc HDL Cholesterol Cholesterol/HDL Ratio Lipase Folate TSH Urine Opiates Screen Positive A Urine Fentanyl Screen Negative Ur Barbiturates Screen Negative U Amphetamin/Meth Scrn Negative U Benzodiazepines Scrn Negative U Cocaine Metab Screen Negative U Marijuana (THC) Screen Negative Ethyl Alcohol Quality Measures Quality Measures none Assessment & Plan Assessment Current Active Medications: Generic Name Dose Route Start Last Admin Trade Name Freq PRN Reason Stop Dose Admin Acetaminophen 650 mg 08/03/24 00:50 Acetaminophen 325 Mg Tablet PO 09/02/24 00:49 Q6H PRN Fever >100 or pain 1-3 Hydrocodone Bitart/Acetaminophen 1 tab 08/03/24 00:50 Hydrocodone/Apap 5/325 Tablet PO 08/08/24 00:49 Q6HR PRN PAIN SCALE 4-6 (Moderate Atorvastatin Calcium 40 mg 08/03/24 21:00 Atorvastatin Calcium 20 Mg Tablet PO 09/02/24 20:59 HS QUOC Chlordiazepoxide HCl 25 mg 08/03/24 09:45 08/03/24 10:10 Chlordiazepoxide Hcl 25 Mg Capsule PO 08/08/24 09:44 25 mg Q8HR QUOC Administration Dextrose 25 ml 08/03/24 01:02 Dextrose 50%-Water Inj 50 Ml Syringe IV 09/02/24 01:01 Q15MIN PRN BG 50-70 responsive npo pt Dextrose 50 ml 08/03/24 01:02 Dextrose 50%-Water Inj 50 Ml Syringe IV 09/02/24 01:01 Q15MIN PRN BG <50 OR BG <70 & pt unresponsive Enoxaparin Sodium 40 mg 08/03/24 09:00 08/03/24 08:34 Enoxaparin Sod Inj 40 Mg/0.4 Ml Syringe SC 08/17/24 08:59 40 mg QDAY QUOC Administration Folic Acid 1 mg 08/03/24 09:00 08/03/24 08:34 Folic Acid 1 Mg Tablet PO 08/08/24 08:59 1 mg BID QUOC Administration Gemfibrozil 600 mg 08/03/24 09:30 08/03/24 10:04 Gemfibrozil 600 Mg Tablet PO 09/02/24 09:29 600 mg QDAY QUOC Administration Glucagon 1 mg 08/03/24 01:02 Glucagon Inj 1 Mg Vial IM Q15MIN PRN BG <70, and no IV access Hydromorphone HCl 1 mg 08/03/24 07:37 Hydromorphone Inj 2 Mg/Ml Vial IVP 08/08/24 05:35 Q3HR PRN Pain 7-10 Lactated Ringer's 1,000 mls @ 200 mls/hr 08/03/24 01:00 08/03/24 07:39 Lactated Ringers IV 09/02/24 00:59 200 mls/hr .Q5H QUOC Administration Magnesium Sulfate 4 gm in 50 mls @ 12.5 mls/hr 08/03/24 09:24 08/03/24 10:04 Magnesium Sulfate Ivpb IV 08/03/24 13:23 12.5 mls/hr X1 ONE Administration Insulin Human Lispro 0 unit 08/03/24 12:00 Insulin Lispro (Admelog) 1 Unit/0.01 Ml Unit SC 09/02/24 11:59 Q6HR QUOC Protocol Lorazepam 1 mg 08/03/24 00:57 Lorazepam 0.5 Mg Tablet PO 08/08/24 00:56 Q4HR PRN CIWA SCORE 7-11 Lorazepam 1 mg 08/03/24 00:57 Lorazepam 2 Mg/Ml Vial IV 08/08/24 00:56 Q2HR PRN CIWA SCORE 14-19 Lorazepam 0.5 mg 08/03/24 07:48 Lorazepam 0.5 Mg Tablet PO 08/08/24 07:47 Q4HR PRN CIWA Score 2-6 Ondansetron HCl 4 mg 08/03/24 00:50 08/03/24 05:49 Ondansetron Inj 2 Mg/Ml Inj 2 Ml IV 09/02/24 00:49 4 mg Q6H PRN Administration NAUSEA OR VOMITING Protocol Pantoprazole Sodium 40 mg 08/03/24 09:00 08/03/24 08:34 Pantoprazole 40 Mg Tablet PO 09/02/24 08:59 40 mg QDAY QUOC Administration Thiamine HCl 100 mg 08/03/24 09:00 08/03/24 08:34 Thiamine 100 Mg Tablet PO 08/08/24 08:59 100 mg BID QUOC Administration Plan 49-year-old male with past medical history of pancreatitis, hyperlipidemia, diabetes who was admitted for acute alcoholic pancreatitis. #Alcoholic pancreatitis #Alcohol withdrawal Patient with binge drinking from Thursday to Thursday prior to admission drink 1 bottle of tequila for 3 days Patient does state that usually at work he drinks 2x24 ounce beers per day Patient on admission had epigastric pain radiating to the back CT scan of the abdomen showed acute pancreatitis Patient has a history of pancreatitis episodes before related to alcohol use Lipase level 339, Triglycerides 889 ? Aggressive IV hydration with lactated Ringer's at 200 cc/h ? Pain control with Dilaudid ? Gallbladder ultrasound ordered to rule out gallstone pancreatitis ? On CIWA protocol for alcohol withdrawal ? Folate, thiamine ordered ? Clear liquid diet advance as tolerated ? account services analyst referral #History of hyperlipidemia Lipid panel shows elevated triglycerides 889 ?Lipitor 40 mg at bedtime ? Gemfibrozil 600 mg daily #Insulin-dependent diabetes mellitus Uses Lantus 21 units in the morning, 14 units at night ? SSI ? Hypoglycemia protocol in place Case discussed with my senior Dr. Doran PGY-[address] Alyssa Oviedo MD PGY-1 Disposition: Telemetry Fluids: LR Feeding: Clear liquid diet advance as tolerated Thrombo prophylaxis: Lovenox Gastric Ulcer prophylaxis: Pantoprazole CODE STATUS: Full code Attending Provider Attestation/Addendum Arcelia Joya DO, attest that I was physically present for the penny portions of the service and evaluated the patient with the resident and I reviewed and discussed the case with the resident and agree with the resident's findings and plans of care as documented above Patient seen and evaluated this AM. He continues to have some epigatrict pain radiating to his back. Patient states that he drinks two 24oz beers daily for work. He has never stopped drinking and denies history of withdrawals. Patient has had previous episodes of pancreatitis in the past. Will monitor for alcohol withdrawals. Gallbladder US negative. Suspect pancreatitis to be 2/2 alcohol versus hypertriglyceridemia. Added gemfibrozil in addition to atorvastatin due to hyperTGL. Continue wtih CIWA protocol. Will start CLD as tolerated. Continue with pain control and IV fluids
[2024-08-03] MEDS: INSULIN LISPRO (AdmeLOG) 1 UNIT/0.01 ML UNIT SC ×3 (11:34→21:48)
--- NOTE | 2024-08-03 12:12 | PC.SS ---
Patient is alert/oriented. Finnish speaking only. Fruit Trimmer present. Patient confirmed demographics. Patient is independent with ADL's. Admitted for pacreatitis. Prior to hospitalization patient states he was not working due to him having a broken foot. Patient resides with his and family. Patient states prior to hospitalization he was drinking a few beers daily but the last 3 days he had family over and was drinking excessively. Patient does not think he has a problem with alcohol. No prior alcohol rehab programs. PCP: Kathryn MACHUCA. Last appt. was in May. Pharmacy: [facility] [place]. Alt medical decision maker: Gabriela. D/c plan: return home
[2024-08-03] MEDS: ATORVASTATIN CALCIUM 20 MG TABLET 40 MG PO (20:01)
[2024-08-03] MEDS: HYDROcodone/APAP 5/325 TABLET 1 TAB PO (20:01)
[2024-08-04] VITALS: BP 142/94; PULSE 80; PULSE 99; RESP 19; TEMP 37.6; O2SAT 97
[2024-08-04] MEDS: RINGERS LACTATED 1000 ML 1,000 ML 200 ML IV ×2 (03:59→08:12)
[2024-08-04 04:00] VITALS: BP 139/89; PULSE 77; PULSE 87; RESP 22; TEMP 37.1; O2SAT 99
[2024-08-04] MEDS: chlordiazePOXIDE HCl 25 MG CAPSULE PO ×2 (05:48→20:27)
[2024-08-04 06:00] VITALS: BMI 23.9
[2024-08-04 06:03] LABS: Basophils % (Auto) 0 % (0-2.5); Eosinophils % (Auto) 0 % (0-10); Hematocrit 37.7 % (41.0-53.0); Hemoglobin 13.4 g/dL (13.5-16.0); Immature Granulocytes % (Auto) 1 % (0-0); Immature Granulocytes Auto 0.06 Thou/mm3 (0.00-0.00); Lymphocytes # (Auto) 0.8 Thou/mm3 (1.0-4.8); Lymphocytes % (Auto) 7 % (10-50); Mean Corpuscular HGB Conc 35.5 g/dl (31.0-37.0); Mean Corpuscular Hemoglobin 32.8 pg (25.0-35.0); Mean Corpuscular Volume 92 fL (80-100); Monocytes # (Auto) 0.5 Thou/mm3 (0.0-0.8); Monocytes % (Auto) 4 % (0-12); Neutrophils # (Auto) 10.6 Thou/mm3 (1.8-7.7); Neutrophils % (Auto) 88 % (37-80); Nucleated Red Blood Cell % 0 /100 WBC (0); Platelet Count 130 Thou/mm3 (140-440); RDW Standard Deviation 41.3 fL (35.1-43.9); Red Blood Count 4.09 Miln/mm3 (4.50-5.90); White Blood Count 12.1 Thou/mm3 (3.8-10.6)
[2024-08-04 06:08] LABS: Partial Thromboplastin Time 34.9 Seconds (22.0-36.0); Prothrombin Time 11.2 Seconds (9.0-12.2)
[2024-08-04 06:23] LABS: Alanine Aminotransferase 18 U/L (10-49); Albumin, Serum 3.4 gm/dL (3.5-5.0); Albumin/Globulin Ratio 1.7 (1.2-2.2); Alkaline Phosphatase 100 U/L (46-116); Anion Gap 7 (7-16); Aspartate Amino Transferase 26 U/L (0-34); BUN/Creatinine Ratio 10 Ratio (12-20); Bilirubin,Total 1.3 mg/dL (0.3-1.2); Blood Urea Nitrogen 6 mg/dL (9-23); Calcium 8.6 mg/dL (8.3-10.6); Calcium (Corrected) 9.1 mg/dL (8.5-10.1); Carbon Dioxide 28.5 mMol/L (20.0-31.0); Chloride 98 mMol/L (98-107); Creatinine (Component) 0.6 mg/dL (0.6-1.3); Estimated Creatinine Clearance 128.1 mL/min (>60); Glucose 145 mg/dL (74-106); Magnesium 1.7 mg/dL (1.6-2.6); Osmolality,Calculated 266 (275-295); Phosphorous 1.8 mg/dL (2.4-5.1); Sodium 133 mMol/L (136-145); Total Protein 5.4 gm/dL (5.7-8.2); eGFR > 60 See Note
[2024-08-04 08:00] VITALS: BP 139/83; PULSE 106; PULSE 89; RESP 21; TEMP 37.3; O2SAT 96
[2024-08-04] MEDS: gemfibroziL 600 MG TABLET PO (08:11)
[2024-08-04] MEDS: PANTOPRAZOLE 40 MG TABLET PO (08:11)
[2024-08-04] MEDS: FOLIC ACID 1 MG TABLET PO ×2 (08:11→20:27)
[2024-08-04] MEDS: THIAMINE 100 MG TABLET PO ×2 (08:11→20:26)
[2024-08-04] MEDS: HYDROcodone/APAP 5/325 TABLET 1 TAB PO (08:11)
[2024-08-04] MEDS: INSULIN LISPRO (AdmeLOG) 1 UNIT/0.01 ML UNIT SC ×3 (08:12→20:27)
[2024-08-04] MEDS: ENOXAPARIN SOD INJ 40 MG/0.4 ML SYRINGE SC (08:12)
[2024-08-04] MEDS: Magnesium Sulfate 4 GM Ivpb 4 GM/50 ML BAG IV (09:44)
[2024-08-04] MEDS: NAPH,KPH MBDB 1 PACKET (1.5 GM) PO (09:44)
[2024-08-04 10:00] LABS: Eosinophils (Manual) 2 % (0-4); Lymphocytes (Manual) 5 % (20-44); Monocytes (Manual) 5 % (2-9); Neutrophils (Manual) 88 % (50-70)
[2024-08-04 10:02] LABS: Anisocytosis 1+
[2024-08-04 12:00] VITALS: BP 139/88; PULSE 87; PULSE 94; RESP 20; TEMP 37.1; O2SAT 95
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
[2024-08-04] MEDS: RINGERS LACTATED 1000 ML 1,000 ML 100 ML IV (12:59)
--- NOTE | 2024-08-04 15:09 | PC.SS ---
Rounding: Plan to increase diet, encourage oral intake as pt does not want to eat
[2024-08-04 16:00] VITALS: BP 143/96; PULSE 109; PULSE 97; RESP 16; TEMP 37.3; O2SAT 95
[2024-08-04 20:00] VITALS: BP 144/91; PULSE 104; PULSE 97; RESP 26; TEMP 37.4; O2SAT 95
[2024-08-04] MEDS: ATORVASTATIN CALCIUM 20 MG TABLET 40 MG PO (20:26)
[2024-08-05] VITALS (18 sets, daily range): BP systolic 88–145; BP diastolic 62–99; PULSE 67–102; RESP 16–28; TEMP 36.2–36.9; O2SAT 95–100; BMI 23.7
[2024-08-05] MEDS: LORazepam 0.5 MG TABLET PO (02:53)
[2024-08-05] MEDS: RINGERS LACTATED 1000 ML 1,000 ML 100 ML IV ×3 (02:57→23:43)
[2024-08-05 05:21] LABS: Basophils % (Auto) 0 % (0-2.5); Eosinophils # (Auto) 0.1 Thou/mm3 (0.0-0.5); Eosinophils % (Auto) 1 % (0-10); Hematocrit 36.5 % (41.0-53.0); Hemoglobin 12.9 g/dL (13.5-16.0); Immature Granulocytes % (Auto) 1 % (0-0); Immature Granulocytes Auto 0.05 Thou/mm3 (0.00-0.00); Lymphocytes # (Auto) 1.3 Thou/mm3 (1.0-4.8); Lymphocytes % (Auto) 15 % (10-50); Mean Corpuscular HGB Conc 35.3 g/dl (31.0-37.0); Mean Corpuscular Hemoglobin 32.5 pg (25.0-35.0); Mean Corpuscular Volume 92 fL (80-100); Monocytes # (Auto) 0.5 Thou/mm3 (0.0-0.8); Monocytes % (Auto) 6 % (0-12); Neutrophils # (Auto) 6.4 Thou/mm3 (1.8-7.7); Neutrophils % (Auto) 76 % (37-80); Nucleated Red Blood Cell % 0 /100 WBC (0); Platelet Count 122 Thou/mm3 (140-440); RDW Standard Deviation 41.3 fL (35.1-43.9); Red Blood Count 3.97 Miln/mm3 (4.50-5.90); White Blood Count 8.3 Thou/mm3 (3.8-10.6)
[2024-08-05 05:38] LABS: Alanine Aminotransferase 12 U/L (10-49); Albumin, Serum 3.4 gm/dL (3.5-5.0); Albumin/Globulin Ratio 1.5 (1.2-2.2); Alkaline Phosphatase 98 U/L (46-116); Anion Gap 7 (7-16); Aspartate Amino Transferase 20 U/L (0-34); BUN/Creatinine Ratio 10 Ratio (12-20); Bilirubin,Total 1.3 mg/dL (0.3-1.2); Blood Urea Nitrogen 6 mg/dL (9-23); Calcium 8.2 mg/dL (8.3-10.6); Calcium (Corrected) 8.7 mg/dL (8.5-10.1); Carbon Dioxide 27.3 mMol/L (20.0-31.0); Chloride 99 mMol/L (98-107); Creatinine (Component) 0.6 mg/dL (0.6-1.3); Estimated Creatinine Clearance 128.1 mL/min (>60); Globulin 2.3 gm/dL (2.3-3.5); Glucose 155 mg/dL (74-106); Magnesium 1.9 mg/dL (1.6-2.6); Osmolality,Calculated 266 (275-295); Phosphorous 2.4 mg/dL (2.4-5.1); Potassium 3.3 mMol/L (3.4-5.1); Sodium 133 mMol/L (136-145); Total Protein 5.7 gm/dL (5.7-8.2); eGFR > 60 See Note
--- NOTE | 2024-08-05 05:52 | PC.LAC ---
Patient was given cereal and milk per patient's request.
[2024-08-05] MEDS: LORazepam 2 MG/ML VIAL 0.5 MG IV (06:33)
--- NOTE | 2024-08-05 06:40 | PC.NURSE ---
Notified charge nurse and hospitalist regarding patient's increasing CIWA score as patient is becoming more restless and having both auditory and visual hallucination. Patient is redirectable.
[2024-08-05] MEDS: INSULIN LISPRO (AdmeLOG) 1 UNIT/0.01 ML UNIT SC ×2 (07:40→11:26)
[2024-08-05] MEDS: Magnesium Sulfate 2 GM Ivpb 2 GM/50 ML BAG IV (08:18)
[2024-08-05] MEDS: POTASSIUM CHLORIDE 10% 20 MEQ/15 ML UDC 40 MEQ PO (08:18)
[2024-08-05] MEDS: THIAMINE 100 MG TABLET PO ×2 (08:20→20:39)
[2024-08-05] MEDS: FOLIC ACID 1 MG TABLET PO ×2 (08:20→20:39)
[2024-08-05] MEDS: POLYETHYLENE GLYCOL 17 GM PACKET PO (08:20)
[2024-08-05] MEDS: SENNA TABLET 1 TAB PO (08:20)
[2024-08-05] MEDS: gemfibroziL 600 MG TABLET PO (08:20)
[2024-08-05] MEDS: ENOXAPARIN SOD INJ 40 MG/0.4 ML SYRINGE SC (08:20)
[2024-08-05] MEDS: PANTOPRAZOLE 40 MG TABLET PO (08:20)
[2024-08-05] MEDS: PHENobarbital INJ 130 MG/1 ML VIAL IVP ×4 (08:30→21:09)
[2024-08-05] MEDS: LORazepam 2 MG/ML VIAL 1 MG IV (10:04)
[2024-08-05] MEDS: PHENobarbital Inj 130 MG, SODIUM CHLORIDE 0.9% FLUSH 12 ML IVP (11:12)
[2024-08-05] MEDS: PHENobarbital INJ 130 MG/1 ML VIAL 260 MG IM (11:27)
[2024-08-05] MEDS: DEXMEDETOMIDINE 200 MCG IVPB 200 MCG/50 ML BOTTLE IV (12:51)
--- NOTE | 2024-08-05 13:28 | PC.SS ---
Addendum entered and electronically signed by ANTIONE Donahue 08/05/24 16:23: Patient has been intubated. Original Note: Update: Patient upgraded to ICU on today's date. Possible candidate for intubation.
--- NOTE | 2024-08-05 13:40 | PC.NURSE ---
Addendum entered by Chica Diggs RN 08/05/24 13:44: Raymundo Huertas was called @ 0811. Original Note: Raymundo Huertas called,pt.agitated,restless,trying to get out of bed,phenobarbital ordered.
--- NOTE | 2024-08-05 13:45 | PC.NURSE ---
@ 1102 Raymundo Huertas was called again,pt. still restless,confused,agitated,trying to get out of bed. @. bedside,pt.has received Ativan and phenobarbital.
[2024-08-05] MEDS: ROCURONIUM INJ 10 MG/ML VIAL 10 ML 100 MG IV (13:55)
[2024-08-05] MEDS: ETOMIDATE INJ 2 MG/ML VIAL 10 ML 20 MG IVP (13:55)
--- NOTE | 2024-08-05 13:58 | XR_ITS ---
Examination: AP chest single view Technique one AP portable upright chest single view Comparison August 02, 2024 INDICATIONS: Hypoxic respiratory failure FINDINGS: No significant cardiac enlargement Mild perihilar basilar opacity Endotracheal tube tip 3.3 cm above stan The orogastric tube is in the stomach in satisfactory position IMPRESSION: Mild bilateral perihilar bibasilar opacity consider mild pneumonia Endotracheal tube tip 3.3 cm above stan
[2024-08-05] MEDS: fentaNYL 2,500 MCG/250 ML BAG 2,500 MCG/250 ML BAG IV (14:02)
[2024-08-05] MEDS: PROPOFOL 1,000 MG IVPB 1,000 MG/100 ML VIAL 1.939 MG IV (14:02)
[2024-08-05 14:45] LABS: Base Excess 1 (-3-3); HCO3 26 mEq/L (20-26); Inspired Oxygen, FIO2 70 %; O2 Saturation 98 % (91-98); PCO2 41 mmHg (32.0-48.0); PO2 87 mmHg (83-108); pH, Arterial 7.41 (7.35-7.45)
[2024-08-05 14:46] LABS: Allen Test Performed/OK; Puncture Site Left Radial
--- NOTE | 2024-08-05 15:49 | PD.RESCONSUL ---
[facility] Data of Consult Requesting Physician: Arcelia Shah DO Admitting Provider: Val Prince MD Attending Provider: Arcelia Shah DO Primary Care Provider: Physician No Primary/Family Consult Narrative History of present illness: As per HPI Flash is a 49 y/o male with PMHx of previous pancreatitis, hyperlipidemia, insulin-dependent type 2 diabetes mellitus, who comes in for an evaluation of abdominal pain radiating to back, rated 10 out of 10 with associated vomiting over 10 episodes, started this morning when waking up. Patient reports he has had symptoms like this before, however symptoms and severity are the same as previous times. He notes that he has been celebrating a sikh event for the past 3 days and has been drinking a bottle of tequila by himself for the past 3 days. He notes that he had no blood in his vomit and it was described as green in nature. He denies any chest pain or shortness of breath. He says that he has not been able to tolerate food orally, however has been able to drink water. He says he vomited over 10 times. He denies any recent sicknesses or recent travel. No one in his house has similar symptoms. His bowel movements are normal. No other complaints this time. 08/05/2024 : Raymundo moreno was called around 11:01 am for agitation he was trying to get out of bed. his CIWA score was >20 at that time. Hospitalist team gave 8:30 of phenobarbital around 830, and another 130 around 10:44. ICU team was consulted for evaluation we gave additional 260 of phenobarbital with additional 130+130 of phenobarbital. The patient was still agitated trying to jump out of bed, hallucinating. Decision was made to upgrade him to ICU Precedex drip was started. Still the patient was agitated so decision was made to intubate him. Etomidate 20 and rocurium of 100 was used .will sedate him with propofol and fentanyl with RASS goal of -2. cc:: cc: Arcelia Shah DO Review of Systems Review of Systems ROS Unobtainable: due to endotracheal tube Narrative Review of Systems: GENERAL: Intubated and mechanically ventillated . HEENT: Normocephalic, atraumatic. Pupils are equal and reactive. Oral mucosa is moist. NECK: Supple, nontender, no JVD CHEST: Symmetrical, atraumatic and with equal expansion ,Nontender on palpation CARDIOVASCULAR: Heart regular rhythm & rate. S1/S2. no murmur or gallop rub or extra beats. LUNGS: Clear to auscultation bilaterally with symmetrical chest rise. No laboring tachypnea or wheezing. No intercostal subcostal retraction. No rales and no rhonchi. ABDOMEN: Soft, flat, nontender to palpation, no guarding or rebound tenderness. Active and normal bowel sounds. EXTREMITIES:Moves all 4 extremities,No B/L LE edema. SKIN: Warm and dry, no jaundice or rashes noted. NEURO: Intubated and mechanically ventillated . PSYCHIATRIC: Intubated and mechanically ventillated . Exam Vital Signs Temp Pulse Resp BP Pulse Ox O2 Del Method FiO2 98.4 F 85 18 119/88 H 99 Mechanical Ventilation 70 08/05/24 08:00 08/05/24 15:30 08/05/24 15:30 08/05/24 15:30 08/05/24 15:30 08/05/24 15:30 08/05/24 15:30 Results Labs 08/06/24 04:21 08/06/24 04:21 Labs: Short CBC 08/05/24 Range/Units 04:48 WBC 8.3 (3.8-10.6) Thou/mm3 Hgb 12.9 L (13.5-16.0) g/dL Hct 36.5 L (41.0-53.0) % Plt Count 122 L (140-440) Thou/mm3 BMP 08/05/24 04:48 Sodium 133 L Potassium 3.3 L D Chloride 99 Carbon Dioxide 27.3 BUN 6 L Creatinine 0.6 Glucose 155 H Calcium 8.2 L Liver Function 08/05/24 Range/Units 04:48 Total Bilirubin 1.3 H (0.3-1.2) mg/dL AST 20 (0-34) U/L ALT 12 (10-49) U/L Alkaline Phosphatase 98 (46-116) U/L Albumin 3.4 L (3.5-5.0) gm/dL ABG Interpretation ABG results: 08/05/24 14:33 ABG pH 7.41 ABG pCO2 41 ABG pO2 87 ABG HCO3 26 ABG O2 Saturation 98 ABG Base Excess 1 Quality Measures Quality Measures none Medications Home Medications and Allergies Home Medications ?Medication ?Instructions ?Recorded ?Confirmed ?Type atorvastatin 40 mg tablet 40 mg PO HS 08/03/24 08/03/24 History insulin glargine 100 unit/mL (3 20 unit subcut .am 08/03/24 08/03/24 History mL) subcutaneous pen (Lantus Solostar U-100 Insulin) Allergies Allergy/AdvReac Type Severity Reaction Status Date / Time No Known Allergies Allergy Verified 05/11/19 15:18 Visit Medications Acetaminophen (Acetaminophen 325 Mg Tablet) 650 mg PO Q6H PRN PRN Reason: Fever >100 or pain 1-3 Stop: 09/02/24 00:49 Hydrocodone Bitart/Acetaminophen (Hydrocodone/Apap 5/325 Tablet) 1 tab PO Q6HR PRN PRN Reason: PAIN SCALE 7-10 (Severe Stop: 08/08/24 00:49 Atorvastatin Calcium (Atorvastatin Calcium 20 Mg Tablet) 40 mg PO HS [facility] Stop: 09/02/24 20:59 Last Admin: 08/04/24 20:26 Dose: 40 mg Chlordiazepoxide HCl (Chlordiazepoxide Hcl 25 Mg Capsule) 25 mg PO Q12HR QUOC Stop: 08/09/24 20:59 Last Admin: 08/04/24 20:27 Dose: 25 mg Dextrose (Dextrose 50%-Water Inj 50 Ml Syringe) 25 ml IV Q15MIN PRN PRN Reason: BG 50-70 responsive npo pt Stop: 09/02/24 01:01 Dextrose (Dextrose 50%-Water Inj 50 Ml Syringe) 50 ml IV Q15MIN PRN PRN Reason: BG <50 OR BG <70 & pt unresponsive Stop: 09/02/24 01:01 Enoxaparin Sodium (Enoxaparin Sod Inj 40 Mg/0.4 Ml Syringe) 40 mg SC QDAY [facility] Stop: 08/17/24 08:59 Last Admin: 08/05/24 08:20 Dose: 40 mg Folic Acid (Folic Acid 1 Mg Tablet) 1 mg PO BID QUOC Stop: 08/08/24 08:59 Last Admin: 08/05/24 08:20 Dose: 1 mg Gemfibrozil (Gemfibrozil 600 Mg Tablet) 600 mg PO QDAY [facility] Stop: 09/02/24 09:29 Last Admin: 08/05/24 08:20 Dose: 600 mg Glucagon (Glucagon Inj 1 Mg Vial) 1 mg IM Q15MIN PRN PRN Reason: BG <70, and no IV access Lactated Ringer's (Lactated Ringers) 1,000 mls @ 100 mls/hr IV .Q10H [facility] Stop: 09/03/24 11:42 Last Admin: 08/05/24 12:58 Dose: 100 mls/hr Dexmedetomidine/Sodium Chloride (Precedex Ivpb) 200 mcg in 50 mls @ 3.232 mls/hr IV .[id number] PRN; Protocol PRN Reason: Per PROTOCOL Stop: 09/04/24 12:30 Last Titration: 08/05/24 14:02 Dose: 0 mcg/kg/hr, 0 mls/hr Fentanyl Citrate (Sublimaze Inj 2,500 Mcg/250 Ml Bag) 2,500 mcg in 250 mls @ 2.5 mls/hr IV .Q24H PRN; Protocol PRN Reason: PER PROTOCOL Stop: 08/10/24 13:52 Last Titration: 08/05/24 15:30 Dose: 75 mcg/hr, 7.5 mls/hr Propofol (Diprivan Ivpb) 1,000 mg in 100 mls @ 1.939 mls/hr IV .Q24H PRN; Protocol PRN Reason: PER PROTOCOL Stop: 09/04/24 13:53 Last Titration: 08/05/24 15:00 Dose: 5 mcg/kg/min, 1.939 mls/hr Insulin Human Lispro (Insulin Lispro (Admelog) 1 Unit/0.01 Ml Unit) 0 unit SC [facility]; Protocol Stop: 09/02/24 21:29 Last Admin: 08/05/24 11:26 Dose: 2 unit Lorazepam (Lorazepam 2 Mg/Ml Vial) 1 mg IV Q2HR PRN PRN Reason: CIWA SCORE 14-19 Stop: 08/08/24 00:56 Last Admin: 08/05/24 10:04 Dose: 1 mg Lorazepam (Lorazepam 2 Mg/Ml Vial) 0.5 mg IV Q2HR PRN PRN Reason: CIWA SCORE 6-13 Stop: 08/10/24 06:20 Last Admin: 08/05/24 06:33 Dose: 0.5 mg Lorazepam (Lorazepam 2 Mg/Ml Vial) 2 mg IV Q2HR PRN PRN Reason: CIWA SCORE 20-25 Stop: 08/10/24 06:22 Ondansetron HCl (Ondansetron Inj 2 Mg/Ml Inj 2 Ml) 4 mg IV Q6H PRN; Protocol PRN Reason: NAUSEA OR VOMITING Stop: 09/02/24 00:49 Last Admin: 08/03/24 05:49 Dose: 4 mg Pantoprazole Sodium (Pantoprazole 40 Mg Tablet) 40 mg PO QDAY [facility] Stop: 09/02/24 08:59 Last Admin: 08/05/24 08:20 Dose: 40 mg Phenobarbital Sodium (Phenobarbital Inj 130 Mg/1 Ml Vial) 130 mg IVP Q8HR [facility] Stop: 08/19/24 13:59 Polyethylene Glycol (Polyethylene Glycol 17 Gm Packet) 17 gm PO QDAY [facility] Stop: 09/04/24 08:59 Last Admin: 08/05/24 08:20 Dose: 17 gm Sennosides (Senna Tablet) 1 tab PO QDAY [facility]; Protocol Stop: 09/04/24 08:59 Last Admin: 08/05/24 08:20 Dose: 1 tab Thiamine HCl (Thiamine 100 Mg Tablet) 100 mg PO BID [facility] Stop: 08/08/24 08:59 Last Admin: 08/05/24 08:20 Dose: 100 mg Discontinued Medications Hydrocodone Bitart/Acetaminophen (Hydrocodone/Apap 5/325 Tablet) 1 tab PO Q6HR PRN PRN Reason: PAIN SCALE 4-6 (Moderate Stop: 08/08/24 00:49 Last Admin: 08/04/24 08:11 Dose: 1 tab Chlordiazepoxide HCl (Chlordiazepoxide Hcl 25 Mg Capsule) 25 mg PO Q8HR [facility] Stop: 08/08/24 09:44 Last Admin: 08/04/24 05:48 Dose: 25 mg Phenobarbital Sodium 130 mg/ (Sodium Chloride 12 ml) 0 mg IVP X1 ONE Stop: 08/05/24 08:18 Phenobarbital Sodium 130 mg/ (Sodium Chloride 12 ml) 0 mg IVP Q8HR [facility] Stop: 08/19/24 13:59 Phenobarbital Sodium 130 mg/ (Sodium Chloride 12 ml) 0 mg IVP X1 ONE Stop: 08/05/24 10:34 Last Admin: 08/05/24 11:12 Dose: 130 mg Phenobarbital Sodium 130 mg/ (Sodium Chloride 12 ml) 0 mg IVP X1 ONE Stop: 08/05/24 11:42 Phenobarbital Sodium 130 mg/ (Sodium Chloride 12 ml) 0 mg IVP X1 ONE Stop: 08/05/24 12:14 Etomidate (Etomidate Inj 2 Mg/Ml Vial 10 Ml) 20 mg IVP X1 ONE Stop: 08/05/24 13:54 Last Admin: 08/05/24 13:55 Dose: 20 mg Hydromorphone HCl (Hydromorphone Inj 2 Mg/Ml Vial) 1 mg IVP Q30M PRN PRN Reason: PAIN Stop: 08/07/24 23:44 Last Admin: 08/03/24 03:07 Dose: 1 mg Hydromorphone HCl (Hydromorphone Inj 2 Mg/Ml Vial) 1 mg IVP Q4HR PRN PRN Reason: Pain 7-10 Stop: 08/08/24 05:35 Last Admin: 08/03/24 05:51 Dose: 1 mg Hydromorphone HCl (Hydromorphone Inj 2 Mg/Ml Vial) 1 mg IVP X1 ONE Stop: 08/03/24 07:29 Last Admin: 08/03/24 07:40 Dose: 1 mg Hydromorphone HCl (Hydromorphone Inj 2 Mg/Ml Vial) 1 mg IVP Q3HR PRN PRN Reason: Pain 7-10 Stop: 08/08/24 05:35 Last Admin: 08/03/24 16:52 Dose: 1 mg Sodium Chloride (Ns) 1,000 mls @ 999 mls/hr IV .Q1H1M ONE Stop: 08/03/24 00:37 Last Infusion: 08/03/24 00:54 Dose: Infused Lactated Ringer's (Lactated Ringers) 1,000 mls @ 200 mls/hr IV .Q5H QUOC Stop: 09/02/24 00:59 Last Admin: 08/04/24 08:12 Dose: 200 mls/hr Magnesium Sulfate (Magnesium Sulfate Ivpb) 4 gm in 50 mls @ 12.5 mls/hr IV X1 ONE Stop: 08/03/24 13:23 Last Admin: 08/03/24 10:04 Dose: 12.5 mls/hr Magnesium Sulfate (Magnesium Sulfate Ivpb) 4 gm in 50 mls @ 12.5 mls/hr IV X1 ONE Stop: 08/04/24 13:16 Last Admin: 08/04/24 09:44 Dose: 12.5 mls/hr Magnesium Sulfate (Magnesium Sulfate Ivpb) 2 gm in 50 mls @ 25 mls/hr IV X1 ONE Stop: 08/05/24 09:48 Last Admin: 08/05/24 08:18 Dose: 25 mls/hr Insulin Human Lispro (Insulin Lispro (Admelog) 1 Unit/0.01 Ml Unit) 0 unit SC AC [facility]; Protocol Stop: 09/02/24 07:29 Insulin Human Lispro (Insulin Lispro (Admelog) 1 Unit/0.01 Ml Unit) 0 unit SC Q6HR [facility]; Protocol Stop: 09/02/24 11:59 Last Admin: 08/03/24 17:20 Dose: 1 unit Lorazepam (Lorazepam 0.5 Mg Tablet) 1 mg PO Q4HR PRN PRN Reason: CIWA SCORE 7-11 Stop: 08/08/24 00:56 Lorazepam (Lorazepam 0.5 Mg Tablet) 0.5 mg PO Q4HR PRN PRN Reason: CIWA Score 2-6 Stop: 08/08/24 07:47 Last Admin: 08/05/24 02:53 Dose: 0.5 mg Ondansetron HCl (Ondansetron Inj 2 Mg/Ml Inj 2 Ml) 4 mg IV X1 ONE; Protocol Stop: 08/02/24 23:40 Last Admin: 08/02/24 23:55 Dose: 4 mg Phenobarbital Sodium (Phenobarbital Inj 130 Mg/1 Ml Vial) 130 mg IVP X1 ONE Stop: 08/05/24 08:31 Last Admin: 08/05/24 08:30 Dose: 130 mg Phenobarbital Sodium (Phenobarbital Inj 130 Mg/1 Ml Vial) 260 mg IM X1 ONE Stop: 08/05/24 11:21 Last Admin: 08/05/24 11:27 Dose: 260 mg Phenobarbital Sodium (Phenobarbital Inj 130 Mg/1 Ml Vial) 130 mg IVP X1 ONE Stop: 08/05/24 11:46 Last Admin: 08/05/24 11:49 Dose: 130 mg Phenobarbital Sodium (Phenobarbital Inj 130 Mg/1 Ml Vial) 130 mg IVP X1 ONE Stop: 08/05/24 12:31 Last Admin: 08/05/24 12:23 Dose: 130 mg Potassium Chloride (Potassium Chloride 10% 20 Meq/15 Ml Udc) 40 meq PO X1 ONE Stop: 08/03/24 10:01 Last Admin: 08/03/24 10:04 Dose: 40 meq Potassium Chloride (Potassium Chloride 10% 20 Meq/15 Ml Udc) 40 meq PO X1 ONE Stop: 08/05/24 07:51 Last Admin: 08/05/24 08:18 Dose: 40 meq Potassium Phos/Sodium Phos (Naph,[facility] 1 Packet (1.5 Gm)) 1 packet PO X1 ONE Stop: 08/04/24 09:05 Last Admin: 08/04/24 09:44 Dose: 1 packet Rocuronium [place] (Rocuronium Inj 10 Mg/Ml Vial 10 Ml) 100 mg IV X1 ONE; Protocol Stop: 08/05/24 13:54 Last Admin: 08/05/24 13:55 Dose: 100 mg Sodium Chloride (Sodium Chloride Rt 10% 15 Ml Nebu) 5 ml INH X1 ONE Stop: 08/05/24 14:14 Assessment & Plan Plan 49-year-old male with past medical history of pancreatitis, hyperlipidemia, diabetes who was admitted for acute alcoholic pancreatitis. 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 Gemfibrozil 600 mg daily ENDO #Alcoholic pancreatitis #Alcohol withdrawal -Patient with binge drinking from Thursday to Thursday prior to admission drink 1 bottle of tequila for 3 days and usually drinks 2x24 ounce beers per day -CT scan of the abdomen showed acute pancreatitis -Patient has a history of pancreatitis episodes before related to alcohol use -Lipase level 339, Triglycerides 889 -gallbladder ultrasound negative for gallstones, -08/05/24: Raymundo moreno was called around 11:01 am for agitation he was trying to get out of bed. his CIWA score was >20 at that time. Hospitalist team gave 8:30 of phenobarbital around 830, and another 130 around 10:44. ICU team was consulted for evaluation we gave additional 260 of phenobarbital with additional 130+130 of phenobarbital. The patient was still agitated trying to jump out of bed, hallucinating. Decision was made to upgrade him to ICU Precedex drip was started. Still the patient was agitated so decision was made to intubate him. Etomidate 20 and rocurium of 100 was used .will sedate him with propofol and fentanyl with RASS goal of -2. ? Aggressive IV hydration with lactated Ringer's at 100 cc/h #DM-2 -Uses Lantus 21 units in the morning, 14 units at night - SSI -A1c-6.1 - Hypoglycemia protocol in place GI -stable RENAL -Stable Case discussed with my attending Litzy George, PGY-3 Disposition: ICU Fluids: LR@ 100 ml Thrombo prophylaxis: Lovenox Gastric Ulcer prophylaxis: Pantoprazole Diet : NPO CODE STATUS: Full code Case discussed with my attending Dr Kathrin Maldonado MD,pgy-3 Attending Provider Attestation/Addendum Patient seen and examined with the above resident, Litzy Maldonado MD. I agree with the findings, assessment, and plan of care as documented except for any difference below. Patient rapid response on telemetry. Serially followed with loading of IM/IV phenobarbital up to 10 mg/kg. No significant improvement though addition of ativan did help finally control the patient. Patient's updated on plan of care and access safely achieved while oxygenating with oxymask, desaturations with hypoventilation. Given high requirements for sedatives in setting of delerium tremens, decision discussed with for placement on mechanical ventilation. No seizure activity yet and hopefully with propofol adequately allow times for withdrawal to clear in coming weekend. No plans to extubate prior to day 4 of withdrawal. Hold phenobarbital until tomorrow now and continue taper if needed. Intubation was uneventful and well tolerated. Patient at risk for further morbidity and mortality with prompt intervention and care required in the intensive care unit. Total critical care time: I personally spent 45 minutes for review of physiologic parameters, directing plan of care, coordination of care with other specilaists, and counsleing patient's family at bedside. This is exclusive of time spent teaching housestaff or performing any seperate billable procedures. The patient continue sto require critical care services for selerium tremens/ acute encephalopathy with acute respiratory failure on MV.
--- NOTE | 2024-08-05 15:53 | PD.RESPROC ---
Procedures Procedure Date / Time 08/05/24 1553 Procedure Narrative Procedure Narrative: Attending Attestation: I was present for entire procedure. No immediate complications. Patient tolerated procedure well. Follow up chest film shows adequate placement of the ETT above the stan. Intubation Indication(s): acute Resp Failure and inability to protect airway Informed consent obtained: obtained from surrogate decision maker Time out done, and the following verified: correct patient, side and site, procedure, patient position and implants and/or equipment Sedative: etomidate Sedative #2: other (Phenobarbital) Paralytic: rocuronium Laryngoscope: other (Glidescope S4) ET tube size: 8 Tube secured location: lips Tube placement confirmation: visualized tube passing through cords, equal breath sounds bilaterally, no breath sounds over epigastrium and confirmation by capnometry Patient tolerated procedure: well Intubation complications: none
--- NOTE | 2024-08-05 16:05 | PD.RESEVENT ---
Documentation for date of: 08/05/24 Event Note Event Note: 49-year-old male with past medical history of pancreatitis, hyperlipidemia, diabetes who was admitted for acute alcoholic pancreatitis. Today patient had a code moreno due to agitation 1 dose of phenobarbital 130 mg x 1 was given. However later during the day patient had another code moreno found with CIWA score of more than 26 patient was hallucinating, agitated, anxious wanting to drink alcohol. ICU team was consulted and patient will be upgraded to ICU for further management. Case discussed with my senior Dr. Doran PGY-[address] Alyssa Oviedo MD PGY-1
[2024-08-05] MEDS: ATORVASTATIN CALCIUM 20 MG TABLET 40 MG PO (20:39)
[2024-08-06] VITALS (40 sets, daily range): BP systolic 85–127; BP diastolic 58–91; PULSE 60–103; RESP 5–24; TEMP 36.1–36.8; O2SAT 87–100; BMI 23.8
[2024-08-06] MEDS: MIDAZOLAM INJ 1 MG/ML VIAL 2 ML 2 MG IV (01:45)
[2024-08-06] MEDS: PROPOFOL 1,000 MG IVPB 1,000 MG/100 ML VIAL 7.756 MG IV (03:08)
[2024-08-06] MEDS: PHENobarbital INJ 130 MG/1 ML VIAL IVP (05:41)
[2024-08-06 06:22] LABS: Phosphorous 2.6 mg/dL (2.4-5.1)
[2024-08-06 07:18] LABS: Base Excess 1 (-3-3); HCO3 26 mEq/L (20-26); Inspired Oxygen, FIO2 70 %; O2 Saturation 100 % (91-98); PCO2 39 mmHg (32.0-48.0); PO2 238 mmHg (83-108); pH, Arterial 7.43 (7.35-7.45)
[2024-08-06 07:19] LABS: Basophils % (Auto) 0 % (0-2.5); Eosinophils # (Auto) 0.2 Thou/mm3 (0.0-0.5); Eosinophils % (Auto) 3 % (0-10); Hematocrit 33.4 % (41.0-53.0); Hemoglobin 11.5 g/dL (13.5-16.0); Immature Granulocytes % (Auto) 1 % (0-0); Immature Granulocytes Auto 0.05 Thou/mm3 (0.00-0.00); Lymphocytes # (Auto) 1.2 Thou/mm3 (1.0-4.8); Lymphocytes % (Auto) 18 % (10-50); Mean Corpuscular HGB Conc 34.4 g/dl (31.0-37.0); Mean Corpuscular Hemoglobin 32.7 pg (25.0-35.0); Mean Corpuscular Volume 95 fL (80-100); Monocytes # (Auto) 0.4 Thou/mm3 (0.0-0.8); Monocytes % (Auto) 6 % (0-12); Neutrophils % (Auto) 73 % (37-80); Nucleated Red Blood Cell % 0 /100 WBC (0); Platelet Count 127 Thou/mm3 (140-440); RDW Standard Deviation 44.5 fL (35.1-43.9); Red Blood Count 3.52 Miln/mm3 (4.50-5.90); White Blood Count 6.9 Thou/mm3 (3.8-10.6)
[2024-08-06 07:19] LABS: Allen Test Performed/OK; Puncture Site Right Radial
[2024-08-06 07:29] LABS: Alanine Aminotransferase 15 U/L (10-49); Albumin/Globulin Ratio 1.9 (1.2-2.2); Alkaline Phosphatase 87 U/L (46-116); Anion Gap 7 (7-16); Aspartate Amino Transferase 24 U/L (0-34); BUN/Creatinine Ratio 14 Ratio (12-20); Bilirubin,Total 0.8 mg/dL (0.3-1.2); Blood Urea Nitrogen 7 mg/dL (9-23); Calcium (Corrected) 8.8 mg/dL (8.5-10.1); Chloride 102 mMol/L (98-107); Creatinine (Component) 0.5 mg/dL (0.6-1.3); Estimated Creatinine Clearance 153.8 mL/min (>60); Globulin 1.6 gm/dL (2.3-3.5); Glucose 145 mg/dL (74-106); Osmolality,Calculated 271 (275-295); Potassium 3.6 mMol/L (3.4-5.1); Sodium 135 mMol/L (136-145); Total Protein 4.6 gm/dL (5.7-8.2); eGFR > 60 See Note
--- NOTE | 2024-08-06 08:41 | PC.RT ---
fio2 titrated to 50% per abg results
[2024-08-06] MEDS: ENOXAPARIN SOD INJ 40 MG/0.4 ML SYRINGE SC (09:22)
[2024-08-06] MEDS: SENNA TABLET 1 TAB PO (09:22)
[2024-08-06] MEDS: THIAMINE 100 MG TABLET PO ×2 (09:22→20:56)
[2024-08-06] MEDS: gemfibroziL 600 MG TABLET PO (09:22)
[2024-08-06] MEDS: FOLIC ACID 1 MG TABLET PO ×2 (09:22→20:56)
[2024-08-06] MEDS: RINGERS LACTATED 1000 ML 1,000 ML 100 ML IV (09:25)
[2024-08-06] MEDS: PANTOPRAZOLE 40 MG TABLET PO (09:25)
[2024-08-06] MEDS: fentaNYL 2,500 MCG/250 ML BAG 2,500 MCG/250 ML BAG 22.5 MCG IV (09:33)
--- NOTE | 2024-08-06 10:21 | ESPR_ITS ---
Documentation for date of: 08/06/24 Subjective Subjective Interval history: no acute/overnight events. patient still intubated, sedated. Exam Vital Signs Temp Pulse Resp BP Pulse Ox O2 Del Method O2 Flow Rate 97.0 F 62 18 98/67 100 Mechanical Ventilation 70 08/06/24 04:00 08/06/24 06:11 08/06/24 06:00 08/06/24 06:00 08/06/24 06:11 08/06/24 06:00 08/05/24 18:00 FiO2 70 08/06/24 06:11 Narrative Exam General: intubated, sedated HEENT: Dry mucous membranes, conjunctiva clear Cardiovascular: RRR Pulmonary: CTAB GI: no rigidity, rebound tenderness or distension, burn nisha inferior to umbilicus that is scabbing Extremities: No presence of trace or pitting edema in lower extremities bilaterally, dorsalis pedis pulses +2 bilaterally Neuro: intubated, sedated Objective Labs 08/06/24 04:21 08/06/24 04:21 Labs: Laboratory Results - last 24 hr 08/05/24 08/06/24 08/06/24 14:33 04:21 07:14 WBC 6.9 RBC 3.52 L Hgb 11.5 L Hct 33.4 L MCV 95 MCH 32.7 MCHC 34.4 RDW Std Deviation 44.5 H Plt Count 127 L Neut % (Auto) 73 Lymph % (Auto) 18 Dunn % (Auto) 6 Eos % (Auto) 3 Baso % (Auto) 0 Neut # (Auto) 5.0 Lymph # (Auto) 1.2 Dunn # (Auto) 0.4 Eos # (Auto) 0.2 Baso # (Auto) 0.0 Immature Gran # (Auto) 0.05 H Absolute Nucleated RBC 0.00 Immature Gran % 1 H Nucleated RBC % 0 Puncture Site Left Radial Right Radial ABG pH 7.41 7.43 ABG pCO2 41 39 ABG pO2 87 238 H D ABG HCO3 26 26 ABG O2 Saturation 98 100 H ABG Base Excess 1 1 FiO2 70 70 Sodium 135 L Potassium 3.6 Chloride 102 Carbon Dioxide 26.0 Anion Gap 7 BUN 7 L Creatinine 0.5 L Estim Creat Clear Calc 153.8 eGFR > 60 BUN/Creatinine Ratio 14 Glucose 145 H Calculated Osmolality 271 L Calcium 8.0 L Corrected Calcium 8.8 Phosphorus 2.6 Total Bilirubin 0.8 D AST 24 ALT 15 Alkaline Phosphatase 87 Total Protein 4.6 L Albumin 3.0 L Globulin 1.6 L Albumin/Globulin Ratio 1.9 ABG Interpretation ABG results: 08/05/24 08/06/24 14:33 07:14 ABG pH 7.41 7.43 ABG pCO2 41 39 ABG pO2 87 238 H D ABG HCO3 26 26 ABG O2 Saturation 98 100 H ABG Base Excess 1 1 Quality Measures Quality Measures none Assessment & Plan Assessment Current Active Medications: Generic Name Dose Route Start Last Admin Trade Name Freq PRN Reason Stop Dose Admin Acetaminophen 650 mg 08/03/24 00:50 Acetaminophen 325 Mg Tablet PO 09/02/24 00:49 Q6H PRN Fever >100 or pain 1-3 Hydrocodone Bitart/Acetaminophen 1 tab 08/04/24 14:00 Hydrocodone/Apap 5/325 Tablet PO 08/08/24 00:49 Q6HR PRN PAIN SCALE 7-10 (Severe Atorvastatin Calcium 40 mg 08/03/24 21:00 08/05/24 20:39 Atorvastatin Calcium 20 Mg Tablet PO 09/02/24 20:59 40 mg HS QUOC Administration Dextrose 25 ml 08/03/24 01:02 Dextrose 50%-Water Inj 50 Ml Syringe IV 09/02/24 01:01 Q15MIN PRN BG 50-70 responsive npo pt Dextrose 50 ml 08/03/24 01:02 Dextrose 50%-Water Inj 50 Ml Syringe IV 09/02/24 01:01 Q15MIN PRN BG <50 OR BG <70 & pt unresponsive Enoxaparin Sodium 40 mg 08/03/24 09:00 08/06/24 09:22 Enoxaparin Sod Inj 40 Mg/0.4 Ml Syringe SC 08/17/24 08:59 40 mg QDAY QUOC Administration Folic Acid 1 mg 08/03/24 09:00 08/06/24 09:22 Folic Acid 1 Mg Tablet PO 08/08/24 08:59 1 mg BID QUOC Administration Gemfibrozil 600 mg 08/03/24 09:30 08/06/24 09:22 Gemfibrozil 600 Mg Tablet PO 09/02/24 09:29 600 mg QDAY QUOC Administration Glucagon 1 mg 08/03/24 01:02 Glucagon Inj 1 Mg Vial IM Q15MIN PRN BG <70, and no IV access Lactated Ringer's 1,000 mls @ 100 mls/hr 08/04/24 11:44 08/06/24 09:25 Lactated Ringers IV 09/03/24 11:42 100 mls/hr .Q10H QUOC Administration Dexmedetomidine/Sodium Chloride 200 mcg in 50 mls @ 3.232 mls/hr 08/05/24 12:31 08/05/24 14:02 Precedex Ivpb IV 09/04/24 12:30 0 mcg/kg/hr .[id number] PRN 0 mls/hr Per PROTOCOL Titration Protocol 0.2 MCG/KG/HR Fentanyl Citrate 2,500 mcg in 250 mls @ 2.5 mls/hr 08/05/24 13:53 08/06/24 09:33 Sublimaze Inj 2,500 Mcg/250 Ml Bag IV 08/10/24 13:52 225 mcg/hr .Q24H PRN 22.5 mls/hr PER PROTOCOL Administration Protocol 25 MCG/HR Propofol 1,000 mg in 100 mls @ 1.939 mls/hr 08/05/24 13:54 08/06/24 06:00 Diprivan Ivpb IV 09/04/24 13:53 20 mcg/kg/min .Q24H PRN 7.756 mls/hr PER PROTOCOL Titration Protocol 5 MCG/KG/MIN Phenobarbital Sodium 260 mg/ 252 mls @ 504 mls/hr 08/06/24 14:00 Sodium Chloride IV 08/20/24 13:59 Q8HR [facility] Insulin Human Lispro 0 unit 08/06/24 00:00 08/06/24 05:43 Insulin Lispro (Admelog) 1 Unit/0.01 Ml Unit SC 09/05/24 00:00 Not Given Q6HR [facility] Protocol Lorazepam 0.5 mg 08/05/24 06:21 08/05/24 06:33 Lorazepam 2 Mg/Ml Vial IV 08/10/24 06:20 0.5 mg Q2HR PRN Administration CIWA SCORE 6-13 Lorazepam 2 mg 08/05/24 06:23 Lorazepam 2 Mg/Ml Vial IV 08/10/24 06:22 Q2HR PRN CIWA SCORE 20-25 Ondansetron HCl 4 mg 08/03/24 00:50 08/03/24 05:49 Ondansetron Inj 2 Mg/Ml Inj 2 Ml IV 09/02/24 00:49 4 mg Q6H PRN Administration NAUSEA OR VOMITING Protocol Pantoprazole Sodium 40 mg 08/03/24 09:00 08/06/24 09:25 Pantoprazole 40 Mg Tablet PO 09/02/24 08:59 40 mg QDAY QUOC Administration Polyethylene Glycol 17 gm 08/05/24 09:00 08/05/24 08:20 Polyethylene Glycol 17 Gm Packet PO 09/04/24 08:59 17 gm QDAY QUOC Administration Sennosides 1 tab 08/05/24 09:00 08/06/24 09:22 Senna Tablet PO 09/04/24 08:59 1 tab QDAY QUOC Administration Protocol Thiamine HCl 100 mg 08/03/24 09:00 08/06/24 09:22 Thiamine 100 Mg Tablet PO 08/08/24 08:59 100 mg BID QUOC Administration Plan Plan 49-year-old male with past medical history of pancreatitis, hyperlipidemia, diabetes who was admitted for acute alcoholic pancreatitis. 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 Gemfibrozil 600 mg daily ENDO #Alcoholic pancreatitis #Alcohol withdrawal -Patient with binge drinking from Thursday to Thursday prior to admission drink 1 bottle of tequila for 3 days and usually drinks 2x24 ounce beers per day -CT scan of the abdomen showed acute pancreatitis -Patient has a history of pancreatitis episodes before related to alcohol use -Lipase level 339, Triglycerides 889 -gallbladder ultrasound negative for gallstones, -08/05/24: Raymundo moreno was called around 11:01 am for agitation he was trying to get out of bed. his CIWA score was >20 at that time. Hospitalist team gave 8:30 of phenobarbital around 830, and another 130 around 10:44. ICU team was consulted for evaluation we gave additional 260 of phenobarbital with additional 130+130 of phenobarbital. The patient was still agitated trying to jump out of bed, hallucinating. Decision was made to upgrade him to ICU Precedex drip was started. Still the patient was agitated so decision was made to intubate him. Etomidate 20 and rocurium of 100 was used .will sedate him with propofol and fentanyl with RASS goal of -2. ? Aggressive IV hydration with lactated Ringer's at 100 cc/h -Phenobarbital 260 mg TID #DM-2 -Uses Lantus 21 units in the morning, 14 units at night - SSI -A1c-6.1 - Hypoglycemia protocol in place GI -stable RENAL -Stable Case discussed with my attending Litzy George, PGY-3 Disposition: ICU Fluids: LR@ 100 ml Thrombo prophylaxis: Lovenox Gastric Ulcer prophylaxis: Pantoprazole Diet : NPO CODE STATUS: Full code Case discussed with my attending Dr Kathrin Walter MD PGY-4 Attending Provider Attestation/Addendum Patient seen and examined with the above resident, Salo Walter DO. Patient on day two of ETOH withdrawal. With slight movement continues to get agitated. Patient with stable pressures on fentanyl and propofol now. Phenobarbital loading ongoing for planned bridge after extubation in coming days. HE is otherwise hemodynamially stable on lung protective ventilatory settings. Patient getting thiamine but will provide large doses for WE prevention as well. Patient can be initiated on TF and will stop IVF now. Serial BMP, Mg, Phos to exlcude presence of refeeding syndrome as well. Patient's family updated throughout the day at bedside. Total critical care time: I personally spent 35 minutes for review of physiologic parameters, directing plan of care, and counseling patient's family at the bedside. This is exclusive of time spent teaching housestaff or performing any separate billable procedures. Patient continued to require critical care services for delerium tremens and acute hypoxic respiratoy failure. He remains at risk for further morbdity and mortality warranting oingoing care and monitoring only available in the ICU.
[2024-08-06] MEDS: PROPOFOL 1,000 MG IVPB 1,000 MG/100 ML VIAL 19.391 MG IV ×2 (10:32→21:28)
--- NOTE | 2024-08-06 12:15 | PC.DIETICIAN ---
Nutrition Prescription: When medically feasible 1) Glucerna 1.2 at 20 ml/hr via OG/NG tube by pump. Advance 10 ml every 8 hrs to goal rate of 45 ml/hr x 24 hrs. If no IV fluids, water flushes of 25 ml/hr (or per MD). Provides: 1296 kcal, 65 g prot, 869 ml free water, 1080 ml total volume. 2) Add 2 prostat 30mL to meet protein goal of 95 g pro *EN goal rate to be adjusted as needed while pt is on propofol.
[2024-08-06] MEDS: PHENOBARBITAL IV ×2 (13:25→21:03)
[2024-08-06] MEDS: SODIUM CHLORIDE 0.9% IV ×2 (13:25→21:03)
--- NOTE | 2024-08-06 15:48 | PC.NURSE ---
DR Pinon made aware no urine output since 1044. States Q shift straight cath
[2024-08-06] MEDS: PROPOFOL 1,000 MG IVPB 1,000 MG/100 ML VIAL 17.452 MG IV (16:29)
[2024-08-06] MEDS: ATORVASTATIN CALCIUM 20 MG TABLET 40 MG PO (20:55)
[2024-08-06] MEDS: LORazepam 2 MG/ML VIAL 0.5 MG IV (21:43)
[2024-08-06] MEDS: fentaNYL 2,500 MCG/250 ML BAG 2,500 MCG/250 ML BAG 30 MCG IV (21:54)
[2024-08-06 23:21] LABS: Anion Gap 10 (7-16); BUN/Creatinine Ratio 12 Ratio (12-20); Blood Urea Nitrogen 6 mg/dL (9-23); Calcium 8.8 mg/dL (8.3-10.6); Calcium (Corrected) 8.8 mg/dL (8.5-10.1); Carbon Dioxide 23.2 mMol/L (20.0-31.0); Chloride 103 mMol/L (98-107); Creatinine (Component) 0.5 mg/dL (0.6-1.3); Glucose 95 mg/dL (74-106); Osmolality,Calculated 269 (275-295); Phosphorous 3.7 mg/dL (2.4-5.1); Potassium 3.9 mMol/L (3.4-5.1); Sodium 136 mMol/L (136-145); eGFR > 60 See Note
[2024-08-07] VITALS (31 sets, daily range): BP systolic 95–124; BP diastolic 64–90; PULSE 80–136; RESP 12–29; TEMP 36.5–38.4; O2SAT 88–100
[2024-08-07] MEDS: PROPOFOL 1,000 MG IVPB 1,000 MG/100 ML VIAL 19.391 MG IV ×4 (04:35→22:31)
[2024-08-07] MEDS: PHENOBARBITAL IV ×3 (05:02→22:00)
[2024-08-07] MEDS: SODIUM CHLORIDE 0.9% IV ×3 (05:02→22:00)
[2024-08-07] MEDS: THIAMINE INJ 100 MG/ML VIAL 2 ML 500 MG IVP ×3 (05:09→21:50)
[2024-08-07 06:15] LABS: Basophils % (Auto) 1 % (0-2.5); Eosinophils # (Auto) 0.1 Thou/mm3 (0.0-0.5); Eosinophils % (Auto) 2 % (0-10); Hematocrit 33.5 % (41.0-53.0); Hemoglobin 11.9 g/dL (13.5-16.0); Immature Granulocytes % (Auto) 1 % (0-0); Immature Granulocytes Auto 0.07 Thou/mm3 (0.00-0.00); Lymphocytes % (Auto) 12 % (10-50); Mean Corpuscular HGB Conc 35.5 g/dl (31.0-37.0); Mean Corpuscular Hemoglobin 34.1 pg (25.0-35.0); Mean Corpuscular Volume 96 fL (80-100); Monocytes # (Auto) 0.7 Thou/mm3 (0.0-0.8); Monocytes % (Auto) 9 % (0-12); Neutrophils # (Auto) 6.3 Thou/mm3 (1.8-7.7); Neutrophils % (Auto) 76 % (37-80); Nucleated Red Blood Cell % 0 /100 WBC (0); Platelet Count 142 Thou/mm3 (140-440); RDW Standard Deviation 44.3 fL (35.1-43.9); Red Blood Count 3.49 Miln/mm3 (4.50-5.90); White Blood Count 8.2 Thou/mm3 (3.8-10.6)
[2024-08-07 06:35] LABS: Albumin, Serum 3.2 gm/dL (3.5-5.0); Anion Gap 8 (7-16); BUN/Creatinine Ratio 8 Ratio (12-20); Blood Urea Nitrogen < 5 mg/dL (9-23); Calcium 7.8 mg/dL (8.3-10.6); Calcium (Corrected) 8.4 mg/dL (8.5-10.1); Carbon Dioxide 25.3 mMol/L (20.0-31.0); Chloride 100 mMol/L (98-107); Creatinine (Component) 0.6 mg/dL (0.6-1.3); Estimated Creatinine Clearance 123.3 mL/min (>60); Glucose 97 mg/dL (74-106); Magnesium 1.7 mg/dL (1.6-2.6); Osmolality,Calculated 263 (275-295); Phosphorous 3.9 mg/dL (2.4-5.1); Potassium 3.2 mMol/L (3.4-5.1); Sodium 133 mMol/L (136-145); eGFR > 60 See Note
[2024-08-07] MEDS: fentaNYL 2,500 MCG/250 ML BAG 2,500 MCG/250 ML BAG 30 MCG IV ×2 (08:25→17:11)
[2024-08-07] MEDS: Magnesium Sulfate 4 GM Ivpb 4 GM/50 ML BAG IV (08:39)
[2024-08-07] MEDS: gemfibroziL 600 MG TABLET PO (08:39)
[2024-08-07] MEDS: LANSOPRAZOLE 30 MG TAB.RAP.DR NG (08:39)
[2024-08-07] MEDS: POTASSIUM CHLORIDE 10% 20 MEQ/15 ML UDC 40 MEQ NG (08:40)
[2024-08-07] MEDS: ENOXAPARIN SOD INJ 40 MG/0.4 ML SYRINGE SC (08:40)
[2024-08-07] MEDS: FOLIC ACID 1 MG TABLET PO ×2 (08:40→21:50)
[2024-08-07] MEDS: SENNA TABLET 1 TAB PO (08:41)
[2024-08-07] MEDS: POLYETHYLENE GLYCOL 17 GM PACKET PO (08:41)
--- NOTE | 2024-08-07 10:10 | PD.RESPRO ---
Documentation for date of: 08/07/24 Subjective Subjective Interval history: Patient was examined bedside this morning, overnight he needed dose of Ativan because he was agitated. Will continue propofol, fentanyl for today. pheno sage 260mg tid . will continue high dose of thiamine . tomorrow we will start precedex and slowly wean sedation. Exam Vital Signs Temp Pulse Resp BP Pulse Ox O2 Del Method O2 Flow Rate 98.7 F 80 18 109/71 96 Mechanical Ventilation 50 08/07/24 07:00 08/07/24 07:00 08/07/24 07:00 08/07/24 07:00 08/07/24 07:00 08/06/24 18:00 08/06/24 17:00 FiO2 40 08/07/24 06:08 Narrative Exam GENERAL: Intubated and mechanically ventillated . HEENT: Normocephalic, atraumatic. Pupils are equal and reactive. Oral mucosa is moist. NECK: Supple, nontender, no JVD CHEST: Symmetrical, atraumatic and with equal expansion ,Nontender on palpation CARDIOVASCULAR: Heart regular rhythm & rate. S1/S2. no murmur or gallop rub or extra beats. LUNGS: Clear to auscultation bilaterally with symmetrical chest rise. No laboring tachypnea or wheezing. No intercostal subcostal retraction. No rales and no rhonchi. ABDOMEN: Soft, flat, nontender to palpation, no guarding or rebound tenderness. Active and normal bowel sounds. EXTREMITIES:Moves all 4 extremities,No B/L LE edema. SKIN: Warm and dry, no jaundice or rashes noted. NEURO: Intubated and mechanically ventillated . PSYCHIATRIC: Intubated and mechanically ventillated . Objective Labs 08/07/24 05:13 08/07/24 15:20 Labs: Laboratory Results - last 24 hr 08/06/24 08/07/24 22:06 05:13 WBC 8.2 RBC 3.49 L Hgb 11.9 L Hct 33.5 L MCV 96 MCH 34.1 MCHC 35.5 RDW Std Deviation 44.3 H Plt Count 142 Neut % (Auto) 76 Lymph % (Auto) 12 [place] % (Auto) 9 Eos % (Auto) 2 Baso % (Auto) 1 Neut # (Auto) 6.3 Lymph # (Auto) 1.0 [place] # (Auto) 0.7 Eos # (Auto) 0.1 Baso # (Auto) 0.0 Immature Gran # (Auto) 0.07 H Absolute Nucleated RBC 0.00 Immature Gran % 1 H Nucleated RBC % 0 Sodium 136 133 L Potassium 3.9 3.2 L D Chloride 103 100 Carbon Dioxide 23.2 25.3 Anion Gap 10 8 BUN 6 L < 5 L Creatinine 0.5 L 0.6 Estim Creat Clear Calc 148.0 123.3 eGFR > 60 > 60 BUN/Creatinine Ratio 12 8 L Glucose 95 D 97 Calculated Osmolality 269 L 263 L Calcium 8.8 7.8 L Corrected Calcium 8.8 8.4 L Phosphorus 3.7 3.9 Magnesium 2.0 1.7 Albumin 4.0 D 3.2 L D ABG Interpretation ABG results: 08/05/24 08/06/24 14:33 07:14 ABG pH 7.41 7.43 ABG pCO2 41 39 ABG pO2 87 238 H D ABG HCO3 26 26 ABG O2 Saturation 98 100 H ABG Base Excess 1 1 Quality Measures Quality Measures none Assessment & Plan Assessment Current Active Medications: Generic Name Dose Route Start Last Admin Trade Name Freq PRN Reason Stop Dose Admin Acetaminophen 650 mg 08/03/24 00:50 Acetaminophen 325 Mg Tablet PO 09/02/24 00:49 Q6H PRN Fever >100 or pain 1-3 Hydrocodone Bitart/Acetaminophen 1 tab 08/04/24 14:00 Hydrocodone/Apap 5/325 Tablet PO 08/08/24 00:49 Q6HR PRN PAIN SCALE 7-10 (Severe Atorvastatin Calcium 40 mg 08/03/24 21:00 08/06/24 20:55 Atorvastatin Calcium 20 Mg Tablet PO 09/02/24 20:59 40 mg HS QUOC Administration Dextrose 25 ml 08/03/24 01:02 Dextrose 50%-Water Inj 50 Ml Syringe IV 09/02/24 01:01 Q15MIN PRN BG 50-70 responsive npo pt Dextrose 50 ml 08/03/24 01:02 Dextrose 50%-Water Inj 50 Ml Syringe IV 09/02/24 01:01 Q15MIN PRN BG <50 OR BG <70 & pt unresponsive Enoxaparin Sodium 40 mg 08/03/24 09:00 08/07/24 08:40 Enoxaparin Sod Inj 40 Mg/0.4 Ml Syringe SC 08/17/24 08:59 40 mg QDAY QUOC Administration Folic Acid 1 mg 08/03/24 09:00 08/07/24 08:40 Folic Acid 1 Mg Tablet PO 08/08/24 08:59 1 mg BID QUOC Administration Gemfibrozil 600 mg 08/03/24 09:30 08/07/24 08:39 Gemfibrozil 600 Mg Tablet PO 09/02/24 09:29 600 mg QDAY QUOC Administration Glucagon 1 mg 08/03/24 01:02 Glucagon Inj 1 Mg Vial IM Q15MIN PRN BG <70, and no IV access Dexmedetomidine/Sodium Chloride 200 mcg in 50 mls @ 3.232 mls/hr 08/05/24 12:31 08/05/24 14:02 Precedex Ivpb IV 09/04/24 12:30 0 mcg/kg/hr .[id number] PRN 0 mls/hr Per PROTOCOL Titration Protocol 0.2 MCG/KG/HR Fentanyl Citrate 2,500 mcg in 250 mls @ 2.5 mls/hr 08/05/24 13:53 08/07/24 08:25 Sublimaze Inj 2,500 Mcg/250 Ml Bag IV 08/10/24 13:52 300 mcg/hr .Q24H PRN 30 mls/hr PER PROTOCOL Administration Protocol 25 MCG/HR Propofol 1,000 mg in 100 mls @ 1.939 mls/hr 08/05/24 13:54 08/07/24 07:00 Diprivan Ivpb IV 09/04/24 13:53 50 mcg/kg/min .Q24H PRN 19.391 mls/hr PER PROTOCOL Titration Protocol 5 MCG/KG/MIN Phenobarbital Sodium 260 mg/ 252 mls @ 504 mls/hr 08/06/24 14:00 08/07/24 05:02 Sodium Chloride IV 08/20/24 13:59 504 mls/hr Q8HR QUOC Administration Magnesium Sulfate 4 gm in 50 mls @ 12.5 mls/hr 08/07/24 07:26 08/07/24 08:39 Magnesium Sulfate Ivpb IV 08/07/24 11:25 12.5 mls/hr X1 ONE Administration Insulin Human Lispro 0 unit 08/06/24 00:00 08/07/24 05:51 Insulin Lispro (Admelog) 1 Unit/0.01 Ml Unit SC 09/05/24 00:00 Not Given Q6HR QUOC Protocol Lansoprazole 30 mg 08/07/24 09:00 08/07/24 08:39 Lansoprazole 30 Mg Tab.Rap.Dr KOENIG 09/02/24 08:59 30 mg QDAY QUOC Administration Lorazepam 0.5 mg 08/05/24 06:21 08/06/24 21:43 Lorazepam 2 Mg/Ml Vial IV 08/10/24 06:20 0.5 mg Q2HR PRN Administration CIWA SCORE 6-13 Lorazepam 2 mg 08/05/24 06:23 Lorazepam 2 Mg/Ml Vial IV 08/10/24 06:22 Q2HR PRN CIWA SCORE 20-25 Ondansetron HCl 4 mg 08/03/24 00:50 08/03/24 05:49 Ondansetron Inj 2 Mg/Ml Inj 2 Ml IV 09/02/24 00:49 4 mg Q6H PRN Administration NAUSEA OR VOMITING Protocol Polyethylene Glycol 17 gm 08/05/24 09:00 08/07/24 08:41 Polyethylene Glycol 17 Gm Packet PO 09/04/24 08:59 17 gm QDAY QUOC Administration Sennosides 1 tab 08/05/24 09:00 08/07/24 08:41 Senna Tablet PO 09/04/24 08:59 1 tab QDAY QUOC Administration Protocol Thiamine HCl 500 mg 08/07/24 06:00 08/07/24 05:09 Thiamine Inj 100 Mg/Ml Vial 2 Ml IVP 09/06/24 05:59 500 mg TID QUOC Administration Plan 49-year-old male with past medical history of pancreatitis, hyperlipidemia, diabetes who was admitted for acute alcoholic pancreatitis. 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 Gemfibrozil 600 mg daily ENDO #Alcoholic pancreatitis #Alcohol withdrawal -Patient with binge drinking from Thursday to Thursday prior to admission drink 1 bottle of tequila for 3 days and usually drinks 2x24 ounce beers per day -CT scan of the abdomen showed acute pancreatitis -Patient has a history of pancreatitis episodes before related to alcohol use -Lipase level 339, Triglycerides 889 -gallbladder ultrasound negative for gallstones, -08/05/24: Code moreno was called around 11:01 am for agitation he was trying to get out of bed. his CIWA score was >20 at that time. Hospitalist team gave 8:30 of phenobarbital around 830, and another 130 around 10:44. ICU team was consulted for evaluation we gave additional 260 of phenobarbital with additional 130+130 of phenobarbital. The patient was still agitated trying to jump out of bed, hallucinating. Decision was made to upgrade him to ICU Precedex drip was started. Still the patient was agitated so decision was made to intubate him. Etomidate 20 and rocurium of 100 was used .will sedate him with propofol and fentanyl with RASS goal of -2. ?08/07/24:will continue Phenobarbital TID for planned bridge after extubation in coming days. . HE is otherwise hemodynamially stable on lung protective ventilatory settings. Continue thiamine large doses for WE prevention as well. will increase his feed. Electrolyte repleted to prevent refeeding . #DM-2 -Uses Lantus 21 units in the morning, 14 units at night - SSI -A1c-6.1 - Hypoglycemia protocol in place GI -stable RENAL -Stable Case discussed with my attending Dr Pinon, Litzy Maldonado, PGY-3 Disposition: ICU Fluids: LR@ 100 ml Thrombo prophylaxis: Lovenox Gastric Ulcer prophylaxis: lassoprazone Diet :NG feeds . CODE STATUS: Full code Attending Provider Attestation/Addendum Patient seen and examined with the above resident, Litzy Maldonado MD. I agree with the findings, assessment, and plan of care as documented except for any differences below. Patient with continued stabilization for DT and ETOH withdrawal. Additional dosing of phenobarbital for transition is ongoing. Maintained on lung protective ventilation. UOP adequate. Serial electrolytes with escalation of TF to goal rate for refeeding syndrome. Ongoing loading of thiamine at high dose for WE prevention. Children and updated at the bedside. Plan for SAT /SBT tomorrow, use precedex to facilitate weaning. Total critical care time: I personally spent 35 minutes for review of physiologic parameters, directing plan of care, and counseling patient's family at the bedside. This is exclusive of time spent teaching housestaff or performing any separate billable procedures. Patient remains at risk for significant morbidity and mortality warranting ongiong care in the ICU. Criical care services for severe alcohol withdrawal with delerium tremens and acute respiratory failure.
[2024-08-07] MEDS: LORazepam 2 MG/ML VIAL IVP (14:07)
--- NOTE | 2024-08-07 14:21 | XR_ITS ---
EXAMINATION: XR chest 1V portable ORDERING PROVIDER: Lizty Maldonado MD HISTORY: sepsis TECHNIQUE: Single portable AP radiograph of the chest. COMPARISON: 08/05/2024, chest radiographs. FINDINGS: Lines and Tubes: Endotracheal tube with tip projecting 2.5 cm above the stan. Enteric tube projecting below the left hemidiaphragm beyond the [id number]. Overlying monitoring leads. Lungs: Hypoinflated. Worsened bibasilar opacities. Pleura: No pneumothorax or pleural effusion. Cardiomediastinal Silhouette: Unchanged. Soft Tissues/Bones: Unchanged. IMPRESSION: 1. Lines and tubes as above. 2. Worsened bibasilar opacities concerning for pneumonia.
[2024-08-07] MEDS: ACETAMINOPHEN SOL 325 MG/10 ML UDC 650 MG NG (14:23)
--- NOTE | 2024-08-07 14:32 | PC.NURSE ---
Pt temporal temperature of 101.2F, MD Maldonado aware.
[2024-08-07 15:27] LABS: Lactate (Lactic Acid) 0.8 mMol/L (0.4-2.0)
[2024-08-07 15:46] LABS: Magnesium 2.1 mg/dL (1.6-2.6); Potassium 3.6 mMol/L (3.4-5.1)
[2024-08-07 18:11] LABS: Procalcitonin 0.29 ng/ml (0.0-0.49)
[2024-08-07] MEDS: ATORVASTATIN CALCIUM 20 MG TABLET 40 MG PO (21:50)
[2024-08-07] MEDS: LORazepam 2 MG/ML VIAL 0.5 MG IV (22:57)
[2024-08-08] VITALS (29 sets, daily range): BP systolic 96–155; BP diastolic 49–95; PULSE 80–103; RESP 11–26; TEMP 36.2–37.1; O2SAT 95–100
[2024-08-08] MEDS: INSULIN LISPRO (AdmeLOG) 1 UNIT/0.01 ML UNIT SC ×3 (00:34→18:16)
[2024-08-08] MEDS: fentaNYL 2,500 MCG/250 ML BAG 2,500 MCG/250 ML BAG 30 MCG IV (01:32)
[2024-08-08] MEDS: PROPOFOL 1,000 MG IVPB 1,000 MG/100 ML VIAL 17.452 MG IV (04:35)
[2024-08-08] MEDS: THIAMINE INJ 100 MG/ML VIAL 2 ML 500 MG IVP ×3 (05:34→22:53)
[2024-08-08 06:14] LABS: Basophils # (Auto) 0.1 Thou/mm3 (0.0-0.2); Basophils % (Auto) 1 % (0-2.5); Eosinophils # (Auto) 0.1 Thou/mm3 (0.0-0.5); Eosinophils % (Auto) 1 % (0-10); Hematocrit 39.5 % (41.0-53.0); Hemoglobin 13.4 g/dL (13.5-16.0); Immature Granulocytes % (Auto) 2 % (0-0); Immature Granulocytes Auto 0.28 Thou/mm3 (0.00-0.00); Lymphocytes # (Auto) 1.3 Thou/mm3 (1.0-4.8); Lymphocytes % (Auto) 10 % (10-50); Mean Corpuscular HGB Conc 33.9 g/dl (31.0-37.0); Mean Corpuscular Hemoglobin 32.6 pg (25.0-35.0); Mean Corpuscular Volume 96 fL (80-100); Monocytes # (Auto) 3.5 Thou/mm3 (0.0-0.8); Monocytes % (Auto) 27 % (0-12); Neutrophils # (Auto) 7.7 Thou/mm3 (1.8-7.7); Neutrophils % (Auto) 60 % (37-80); Nucleated Red Blood Cell % 0 /100 WBC (0); Platelet Count 154 Thou/mm3 (140-440); RDW Standard Deviation 45.4 fL (35.1-43.9); Red Blood Count 4.11 Miln/mm3 (4.50-5.90); White Blood Count 12.9 Thou/mm3 (3.8-10.6)
[2024-08-08 06:52] LABS: Albumin, Serum 3.7 gm/dL (3.5-5.0); Anion Gap 12 (7-16); BUN/Creatinine Ratio 8 Ratio (12-20); Blood Urea Nitrogen 5 mg/dL (9-23); Calcium 9.1 mg/dL (8.3-10.6); Calcium (Corrected) 9.3 mg/dL (8.5-10.1); Carbon Dioxide 24.5 mMol/L (20.0-31.0); Chloride 101 mMol/L (98-107); Creatinine (Component) 0.6 mg/dL (0.6-1.3); Estimated Creatinine Clearance 123.3 mL/min (>60); Glucose 145 mg/dL (74-106); Magnesium 2.2 mg/dL (1.6-2.6); Osmolality,Calculated 274 (275-295); Phosphorous 3.5 mg/dL (2.4-5.1); Potassium 3.8 mMol/L (3.4-5.1); Sodium 137 mMol/L (136-145); eGFR > 60 See Note
[2024-08-08 06:52] LABS: Folate, RBC* 445 ng/mL RBC (>280)
--- NOTE | 2024-08-08 07:25 | ESPR_ITS ---
Documentation for date of: 08/08/24 Subjective Subjective Interval history: No acute/overnight events. Fever resolved. Exam Vital Signs Temp Pulse Resp BP Pulse Ox O2 Del Method O2 Flow Rate 98.8 F 88 18 112/75 100 Mechanical Ventilation 50 08/08/24 07:00 08/08/24 07:00 08/08/24 07:00 08/08/24 07:00 08/08/24 07:00 08/06/24 18:00 08/06/24 17:00 FiO2 40 08/08/24 06:07 Narrative Exam GENERAL: Intubated and mechanically ventillated . HEENT: Normocephalic, atraumatic. Pupils are equal and reactive. Oral mucosa is moist. NECK: Supple, nontender, no JVD CHEST: Symmetrical, atraumatic and with equal expansion ,Nontender on palpation CARDIOVASCULAR: Heart regular rhythm & rate. S1/S2. no murmur or gallop rub or extra beats. LUNGS: Clear to auscultation bilaterally with symmetrical chest rise. No laboring tachypnea or wheezing. No intercostal subcostal retraction. No rales and no rhonchi. ABDOMEN: Soft, flat, nontender to palpation, no guarding or rebound tenderness. Active and normal bowel sounds. EXTREMITIES:Moves all 4 extremities,No B/L LE edema. SKIN: Warm and dry, no jaundice or rashes noted. NEURO: Intubated and mechanically ventillated . PSYCHIATRIC: Intubated and mechanically ventillated . Objective Labs 08/08/24 04:31 08/08/24 04:31 Labs: Laboratory Results - last 24 hr 08/03/24 08/07/24 08/08/24 10:39 15:20 04:31 WBC 12.9 H D RBC 4.11 L Hgb 13.4 L Hct 39.5 L MCV 96 MCH 32.6 MCHC 33.9 RDW Std Deviation 45.4 H Plt Count 154 Neut % (Auto) 60 Lymph % (Auto) 10 [place] % (Auto) 27 H Eos % (Auto) 1 Baso % (Auto) 1 Neut # (Auto) 7.7 Lymph # (Auto) 1.3 [place] # (Auto) 3.5 H Eos # (Auto) 0.1 Baso # (Auto) 0.1 Immature Gran # (Auto) 0.28 H Absolute Nucleated RBC 0.00 Immature Gran % 2 H Nucleated RBC % 0 Sodium 137 Potassium 3.6 3.8 Chloride 101 Carbon Dioxide 24.5 Anion Gap 12 BUN 5 L Creatinine 0.6 Estim Creat Clear Calc 123.3 eGFR > 60 BUN/Creatinine Ratio 8 L Glucose 145 H Calculated Osmolality 274 L Lactic Acid 0.8 Calcium 9.1 Corrected Calcium 9.3 Phosphorus 3.5 Magnesium 2.1 2.2 Albumin 3.7 D RBC Folate Hemolysate 445 Procalcitonin 0.29 ABG Interpretation ABG results: 08/05/24 08/06/24 14:33 07:14 ABG pH 7.41 7.43 ABG pCO2 41 39 ABG pO2 87 238 H D ABG HCO3 26 26 ABG O2 Saturation 98 100 H ABG Base Excess 1 1 Quality Measures Quality Measures none Assessment & Plan Assessment Current Active Medications: Generic Name Dose Route Start Last Admin Trade Name Freq PRN Reason Stop Dose Admin Acetaminophen 650 mg 08/07/24 14:17 08/07/24 14:23 Acetaminophen Maria Dolores 325 Mg/10 Ml Udc NG 09/06/24 14:15 650 mg Q6HR PRN Administration Fever >100 or pain 1-3 Atorvastatin Calcium 40 mg 08/03/24 21:00 08/07/24 21:50 Atorvastatin Calcium 20 Mg Tablet PO 09/02/24 20:59 40 mg HS QUOC Administration Dextrose 25 ml 08/03/24 01:02 Dextrose 50%-Water Inj 50 Ml Syringe IV 09/02/24 01:01 Q15MIN PRN BG 50-70 responsive npo pt Dextrose 50 ml 08/03/24 01:02 Dextrose 50%-Water Inj 50 Ml Syringe IV 09/02/24 01:01 Q15MIN PRN BG <50 OR BG <70 & pt unresponsive Enoxaparin Sodium 40 mg 08/03/24 09:00 08/07/24 08:40 Enoxaparin Sod Inj 40 Mg/0.4 Ml Syringe SC 08/17/24 08:59 40 mg QDAY QUOC Administration Folic Acid 1 mg 08/03/24 09:00 08/07/24 21:50 Folic Acid 1 Mg Tablet PO 08/08/24 08:59 1 mg BID QUOC Administration Gemfibrozil 600 mg 08/03/24 09:30 08/07/24 08:39 Gemfibrozil 600 Mg Tablet PO 09/02/24 09:29 600 mg QDAY QUOC Administration Glucagon 1 mg 08/03/24 01:02 Glucagon Inj 1 Mg Vial IM Q15MIN PRN BG <70, and no IV access Dexmedetomidine/Sodium Chloride 200 mcg in 50 mls @ 3.232 mls/hr 08/05/24 12:31 08/05/24 14:02 Precedex Ivpb IV 09/04/24 12:30 0 mcg/kg/hr .[id number] PRN 0 mls/hr Per PROTOCOL Titration Protocol 0.2 MCG/KG/HR Fentanyl Citrate 2,500 mcg in 250 mls @ 2.5 mls/hr 08/05/24 13:53 08/08/24 07:00 Sublimaze Inj 2,500 Mcg/250 Ml Bag IV 08/10/24 13:52 200 mcg/hr .Q24H PRN 20 mls/hr PER PROTOCOL Titration Protocol 25 MCG/HR Propofol 1,000 mg in 100 mls @ 1.939 mls/hr 08/05/24 13:54 08/08/24 07:00 Diprivan Ivpb IV 09/04/24 13:53 30 mcg/kg/min .Q24H PRN 11.635 mls/hr PER PROTOCOL Titration Protocol 5 MCG/KG/MIN Phenobarbital Sodium 260 mg/ 252 mls @ 504 mls/hr 08/07/24 15:00 08/07/24 22:00 Sodium Chloride IV 08/20/24 13:59 504 mls/hr Q8H QUOC Administration Insulin Human Lispro 0 unit 08/06/24 00:00 08/08/24 05:34 Insulin Lispro (Admelog) 1 Unit/0.01 Ml Unit SC 09/05/24 00:00 1 unit Q6HR QUOC Administration Protocol Lansoprazole 30 mg 08/07/24 09:00 08/07/24 08:39 Lansoprazole 30 Mg Tab.Rap.Dr KOENIG 09/02/24 08:59 30 mg QDAY QUOC Administration Lorazepam 0.5 mg 08/05/24 06:21 08/07/24 22:57 Lorazepam 2 Mg/Ml Vial IV 08/10/24 06:20 0.5 mg Q2HR PRN Administration CIWA SCORE 6-13 Lorazepam 2 mg 08/05/24 06:23 Lorazepam 2 Mg/Ml Vial IV 08/10/24 06:22 Q2HR PRN CIWA SCORE 20-25 Ondansetron HCl 4 mg 08/03/24 00:50 08/03/24 05:49 Ondansetron Inj 2 Mg/Ml Inj 2 Ml IV 09/02/24 00:49 4 mg Q6H PRN Administration NAUSEA OR VOMITING Protocol Polyethylene Glycol 17 gm 08/05/24 09:00 08/07/24 08:41 Polyethylene Glycol 17 Gm Packet PO 09/04/24 08:59 17 gm QDAY QUOC Administration Sennosides 1 tab 08/05/24 09:00 08/07/24 08:41 Senna Tablet PO 09/04/24 08:59 1 tab QDAY QUOC Administration Protocol Thiamine HCl 500 mg 08/07/24 06:00 08/08/24 05:34 Thiamine Inj 100 Mg/Ml Vial 2 Ml IVP 09/06/24 05:59 500 mg TID QUOC Administration Plan 49-year-old male with past medical history of pancreatitis, hyperlipidemia, diabetes who was admitted for acute alcoholic pancreatitis. 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 Gemfibrozil 600 mg daily ENDO #Alcoholic pancreatitis #Alcohol withdrawal -Patient with binge drinking from Thursday to Thursday prior to admission drink 1 bottle of tequila for 3 days and usually drinks 2x24 ounce beers per day -CT scan of the abdomen showed acute pancreatitis -Patient has a history of pancreatitis episodes before related to alcohol use -Lipase level 339, Triglycerides 889 -gallbladder ultrasound negative for gallstones, -08/08: extubated #DM-2 -Uses Lantus 21 units in the morning, 14 units at night - SSI -A1c-6.1 - Hypoglycemia protocol in place GI -stable RENAL -Stable Case discussed with my attending Dr Pinon, Salo Walter MD PGY-4 Disposition: ICU Fluids: LR@ 100 ml Thrombo prophylaxis: Lovenox Gastric Ulcer prophylaxis: lassoprazone Diet NG feeds CODE STATUS: Full code Attending Provider Attestation/Addendum Patient seen and examined with the above resident, Salo Walter DO. I agree with the findings, assessment, and plan of care as documented except for any differences below. Patient with continued improvement. Following commands. Stable on minimal ventilator settings and tolerated SBT well with precdex. Remains confused but no other signs of agitated delirium or DTs form ETOH withdrawal. Continue to taper IV phenobarbital over coming days. Dose was halved to 130mg TID, plan to go to BID tomorrow, and one the day after to taper off given long half life. Patient with single reported fever overnight, WBC is elevated but possible reactive/ drug induced. He did not have recurrence and procalcitonin is negative, reassuring this is less likely significant infection. Low threshold to start antibiotics. Patient stable on NC post extubation, will need sitter and low dose precedex until he continues to improve. TF stopped upon extubation. Noted stridor, give dexamethasone, benadryl, and racemic ephnephrine for upper airway swelling. Diet to be assessed tomorrow when mentation improved. Total critical care torsten: I personally spnet 45 minutes for review of physiologic parameters, directing plan of care, and counseling patient/ family at bedside. This is exclusive of time spent teaching housestaff or performing any separate billable procedures. Patient continues to require critical care services for delirium tremens and acute hypoxic respiratory failure. Patient remains at risk for further morbidity and mortality warranting close monitoring and care only available in the ICU.
[2024-08-08] MEDS: PHENOBARBITAL IV (08:13)
[2024-08-08] MEDS: SODIUM CHLORIDE 0.9% IV (08:13)
[2024-08-08] MEDS: LANSOPRAZOLE 30 MG TAB.RAP.DR NG (08:13)
[2024-08-08] MEDS: gemfibroziL 600 MG TABLET PO (08:13)
[2024-08-08] MEDS: ENOXAPARIN SOD INJ 40 MG/0.4 ML SYRINGE SC (08:13)
[2024-08-08] MEDS: SENNA TABLET 1 TAB PO (08:13)
[2024-08-08] MEDS: POLYETHYLENE GLYCOL 17 GM PACKET PO (08:14)
[2024-08-08] MEDS: DEXMEDETOMIDINE 200 MCG IVPB 200 MCG/50 ML BOTTLE 9.696 MCG IV (08:31)
[2024-08-08] MEDS: DEXMEDETOMIDINE 200 MCG IVPB 200 MCG/50 ML BOTTLE 16.159 MCG IV (09:55)
[2024-08-08 10:54] LABS: Triglycerides 263 mg/dL (30-150)
[2024-08-08] MEDS: SODIUM CHLORIDE RT SOL 0.9% 3 ML NEBU INH (12:33)
[2024-08-08] MEDS: EPINEPHrine RT SOL 0.5 ML NEBU INH (12:33)
[2024-08-08] MEDS: DiphenhydrAMINE INJ 50 MG/ML VIAL 12.5 MG IVP (12:36)
[2024-08-08] MEDS: DEXAMETHASONE SOD PHOS INJ 4 MG/ML VIAL IV ×2 (12:37→22:53)
[2024-08-08] MEDS: DEXMEDETOMIDINE 200 MCG IVPB 200 MCG/50 ML BOTTLE 22.623 MCG IV (14:52)
--- NOTE | 2024-08-08 15:40 | PC.SS ---
Update: Patient extubated today. On 15L oxymask. Patient is on restraints. Patient is not receiving pressor support.
[2024-08-08] MEDS: PHENobarbital INJ 130 MG/1 ML VIAL IVP ×2 (16:24→23:43)
[2024-08-08 17:57] LABS: Triglycerides 190 mg/dL (30-150)
[2024-08-08] MEDS: DEXMEDETOMIDINE 200 MCG IVPB 200 MCG/50 ML BOTTLE IV (18:26)
[2024-08-09] VITALS (18 sets, daily range): BP systolic 92–165; BP diastolic 66–106; PULSE 59–113; RESP 14–27; TEMP 36.2–37.1; O2SAT 96–100
[2024-08-09] MEDS: INSULIN LISPRO (AdmeLOG) 1 UNIT/0.01 ML UNIT SC ×3 (00:09→17:55)
[2024-08-09] MEDS: DEXMEDETOMIDINE 200 MCG IVPB 200 MCG/50 ML BOTTLE 9.696 MCG IV (01:19)
[2024-08-09] MEDS: THIAMINE INJ 100 MG/ML VIAL 2 ML 500 MG IVP ×3 (05:28→21:35)
[2024-08-09] MEDS: DEXAMETHASONE SOD PHOS INJ 4 MG/ML VIAL IV ×2 (05:29→13:33)
[2024-08-09 05:31] LABS: Basophils % (Auto) 0 % (0-2.5); Eosinophils % (Auto) 0 % (0-10); Hematocrit 38.3 % (41.0-53.0); Hemoglobin 13.2 g/dL (13.5-16.0); Immature Granulocytes % (Auto) 2 % (0-0); Immature Granulocytes Auto 0.19 Thou/mm3 (0.00-0.00); Lymphocytes # (Auto) 0.6 Thou/mm3 (1.0-4.8); Lymphocytes % (Auto) 6 % (10-50); Mean Corpuscular HGB Conc 34.5 g/dl (31.0-37.0); Mean Corpuscular Hemoglobin 32.6 pg (25.0-35.0); Mean Corpuscular Volume 95 fL (80-100); Monocytes # (Auto) 0.7 Thou/mm3 (0.0-0.8); Monocytes % (Auto) 7 % (0-12); Neutrophils # (Auto) 7.5 Thou/mm3 (1.8-7.7); Neutrophils % (Auto) 84 % (37-80); Nucleated Red Blood Cell % 0 /100 WBC (0); Platelet Count 239 Thou/mm3 (140-440); RDW Standard Deviation 42.5 fL (35.1-43.9); Red Blood Count 4.05 Miln/mm3 (4.50-5.90); White Blood Count 8.9 Thou/mm3 (3.8-10.6)
[2024-08-09 05:56] LABS: Albumin, Serum 3.8 gm/dL (3.5-5.0); Anion Gap 9 (7-16); BUN/Creatinine Ratio 12 Ratio (12-20); Blood Urea Nitrogen 6 mg/dL (9-23); Calcium 9.1 mg/dL (8.3-10.6); Calcium (Corrected) 9.3 mg/dL (8.5-10.1); Carbon Dioxide 26.1 mMol/L (20.0-31.0); Chloride 102 mMol/L (98-107); Creatinine (Component) 0.5 mg/dL (0.6-1.3); Glucose 160 mg/dL (74-106); Magnesium 1.9 mg/dL (1.6-2.6); Osmolality,Calculated 274 (275-295); Phosphorous 3.8 mg/dL (2.4-5.1); Potassium 3.9 mMol/L (3.4-5.1); Sodium 137 mMol/L (136-145); eGFR > 60 See Note
[2024-08-09] MEDS: ENOXAPARIN SOD INJ 40 MG/0.4 ML SYRINGE SC (09:25)
[2024-08-09] MEDS: PHENobarbital INJ 130 MG/1 ML VIAL IVP (09:25)
[2024-08-09] MEDS: PANTOPRAZOLE INJ 40 MG VIAL IVP (09:38)
--- NOTE | 2024-08-09 12:04 | ESPR_ITS ---
Documentation for date of: 08/09/24 Subjective Subjective Interval history: Patient was seen and examined at bedside. Overnight patient was not Precedex drip, gradually weaned off from Precedex drip, hemodynamically was stable. Yesterday we decreased phenobarbital from 260 3 times daily to 130 3 times daily, today we will decrease to 60 2 times daily, lab goisn patient is improving, leukocytosis resolved, most likely was secondary due to steroid use, patient is having adequate urine output, electrolytes within normal limits. Triglycerides down trended from 263 290, will continue gemfibrozil 600 daily. Patient currently hemodynamically stable, is able to follow commands, we will downgrade patient, signout was given to day team. Continue CIWA protocol as needed, gradually taper off from phenobarbital. Exam Vital Signs Temp Pulse Resp BP Pulse Ox O2 Del Method O2 Flow Rate 97.1 F 92 17 102/71 97 Nasal Cannula 1 08/09/24 07:00 08/09/24 11:00 08/09/24 11:00 08/09/24 11:00 08/09/24 11:00 08/09/24 07:00 08/09/24 07:00 FiO2 40 08/08/24 10:52 Narrative Exam GENERAL: no acute distress, well nourished, slightly confused, however is able to follow commands partially, HEENT: Head AT/ NC. Mucous membranes moist. PERRL. NECK: Supple, no lymphadenopathy, no carotid bruits. CARDIOVASCULAR: RRR. Normal S1/S2, No m/r/g. No pitting edema of bilateral LEs. RESPIRATORY: CTAB. No wheezing, rhonchi, crackles. GASTROINTESTINAL: Abdomen soft, non tender no palpable masses. Bowel sounds present in all 4 quadrants. MUSCULOSKELETAL:? No cyanosis or edema, no visible joint swelling. NEUROLOGICAL: No focal deficits. Sensation intact, symmetric. INTEGUMENTARY: No obvious rashes, no jaundice, normal turgor. Objective Labs 08/10/24 04:17 08/10/24 04:17 Labs: Laboratory Results - last 24 hr 08/08/24 08/09/24 17:14 05:00 WBC 8.9 RBC 4.05 L Hgb 13.2 L Hct 38.3 L MCV 95 MCH 32.6 MCHC 34.5 RDW Std Deviation 42.5 Plt Count 239 D Neut % (Auto) 84 H Lymph % (Auto) 6 L [place] % (Auto) 7 Eos % (Auto) 0 Baso % (Auto) 0 Neut # (Auto) 7.5 Lymph # (Auto) 0.6 L [place] # (Auto) 0.7 Eos # (Auto) 0.0 Baso # (Auto) 0.0 Immature Gran # (Auto) 0.19 H Absolute Nucleated RBC 0.00 Immature Gran % 2 H Nucleated RBC % 0 Sodium 137 Potassium 3.9 Chloride 102 Carbon Dioxide 26.1 Anion Gap 9 BUN 6 L Creatinine 0.5 L Estim Creat Clear Calc 148.0 eGFR > 60 BUN/Creatinine Ratio 12 Glucose 160 H Calculated Osmolality 274 L Calcium 9.1 Corrected Calcium 9.3 Phosphorus 3.8 Magnesium 1.9 Albumin 3.8 Triglycerides 190 H ABG Interpretation ABG results: 08/05/24 08/06/24 14:33 07:14 ABG pH 7.41 7.43 ABG pCO2 41 39 ABG pO2 87 238 H D ABG HCO3 26 26 ABG O2 Saturation 98 100 H ABG Base Excess 1 1 Quality Measures Quality Measures none Assessment & Plan Assessment Current Active Medications: Generic Name Dose Route Start Last Admin Trade Name Freq PRN Reason Stop Dose Admin Acetaminophen 650 mg 08/07/24 14:17 08/07/24 14:23 Acetaminophen Maria Dolores 325 Mg/10 Ml Udc NG 09/06/24 14:15 650 mg Q6HR PRN Administration Fever >100 or pain 1-3 Atorvastatin Calcium 40 mg 08/03/24 21:00 08/08/24 21:50 Atorvastatin Calcium 20 Mg Tablet PO 09/02/24 20:59 Not Given HS QUOC Dexamethasone Sodium Phosphate 4 mg 08/08/24 12:45 08/09/24 05:29 Dexamethasone Sod Phos Inj 4 Mg/Ml Vial IV 08/11/24 12:44 4 mg Q8HR QUOC Administration Protocol Dextrose 25 ml 08/03/24 01:02 Dextrose 50%-Water Inj 50 Ml Syringe IV 09/02/24 01:01 Q15MIN PRN BG 50-70 responsive npo pt Dextrose 50 ml 08/03/24 01:02 Dextrose 50%-Water Inj 50 Ml Syringe IV 09/02/24 01:01 Q15MIN PRN BG <50 OR BG <70 & pt unresponsive Enoxaparin Sodium 40 mg 08/03/24 09:00 08/09/24 09:25 Enoxaparin Sod Inj 40 Mg/0.4 Ml Syringe SC 08/17/24 08:59 40 mg QDAY QUOC Administration Gemfibrozil 600 mg 08/03/24 09:30 08/09/24 09:30 Gemfibrozil 600 Mg Tablet PO 09/02/24 09:29 Not Given QDAY QUOC Glucagon 1 mg 08/03/24 01:02 Glucagon Inj 1 Mg Vial IM Q15MIN PRN BG <70, and no IV access Insulin Human Lispro 0 unit 08/06/24 00:00 08/09/24 05:26 Insulin Lispro (Admelog) 1 Unit/0.01 Ml Unit SC 09/05/24 00:00 1 unit Q6HR QUOC Administration Protocol Lorazepam 0.5 mg 08/05/24 06:21 08/07/24 22:57 Lorazepam 2 Mg/Ml Vial IV 08/10/24 06:20 0.5 mg Q2HR PRN Administration CIWA SCORE 6-13 Lorazepam 2 mg 08/05/24 06:23 Lorazepam 2 Mg/Ml Vial IV 08/10/24 06:22 Q2HR PRN CIWA SCORE 20-25 Ondansetron HCl 4 mg 08/03/24 00:50 08/03/24 05:49 Ondansetron Inj 2 Mg/Ml Inj 2 Ml IV 09/02/24 00:49 4 mg Q6H PRN Administration NAUSEA OR VOMITING Protocol Pantoprazole Sodium 40 mg 08/09/24 09:45 08/09/24 09:38 Pantoprazole Inj 40 Mg Vial IVP 09/08/24 09:44 40 mg QDAY QUOC Administration Phenobarbital Sodium 60 mg 08/09/24 21:00 Phenobarbital Inj 130 Mg/1 Ml Vial IVP 08/23/24 20:59 BID QUOC Polyethylene Glycol 17 gm 08/05/24 09:00 08/09/24 09:31 Polyethylene Glycol 17 Gm Packet PO 09/04/24 08:59 Not Given QDAY QUOC Sennosides 1 tab 08/05/24 09:00 08/09/24 09:31 Senna Tablet PO 09/04/24 08:59 Not Given QDAY QUOC Protocol Sodium Chloride 3 ml 08/08/24 12:24 08/08/24 12:33 Sodium Chloride Rt Maria Dolores 0.9% 3 Ml Nebu INH 09/07/24 12:23 3 ml PRN PRN Administration SOLN Thiamine HCl 500 mg 08/07/24 06:00 08/09/24 05:28 Thiamine Inj 100 Mg/Ml Vial 2 Ml IVP 09/06/24 05:59 500 mg TID QUOC Administration Plan 49-year-old male with past medical history of pancreatitis, hyperlipidemia, diabetes who was initially admitted to floors for acute alcoholic pancreatitis, however hospital course was complicated with severe alcohol withdrawal requiring Precedex drip and intubation. 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 metabolic encephalopathy secondary to sedation, resolved #Acute alcohol withdrawal-improving Patient weaned off from Precedex drip, successfully, Phenobarbital was weaned off from 260 3 times daily 130 3 times daily yesterday -Currently continue phenobarbital 60 2 times daily -Patient is on CIWA protocol as needed -Continue closely monitor vitals, respiratory drive -Patient will need to be assessed for swallow eval, restart feeding RESPI : #Inspiratory Stidor-resolved 2/2 recent intubation [facility] #History of hyperlipidemia -Lipid panel shows elevated triglycerides 889, down trended to 190 ?Lipitor 40 mg at bedtime ?Gemfibrozil 600 mg daily ENDO #Alcoholic pancreatitis -Patient with binge drinking from Thursday to Thursday prior to admission drink 1 bottle of tequila for 3 days and usually drinks 2x24 ounce beers per day -CT scan of the abdomen showed acute pancreatitis -Patient has a history of pancreatitis episodes before related to alcohol use -Lipase level 339, Triglycerides 889 -gallbladder ultrasound negative for gallstones, -Continue current management with Lipitor and gemfibrozil #DM-2 -Uses Lantus 21 units in the morning, 14 units at night - SSI -A1c-6.1 - Hypoglycemia protocol in place GI -stable RENAL -Stable Heme stable Disposition: ICU Fluids: none Thrombo prophylaxis: Lovenox Gastric Ulcer prophylaxis: lassoprazone Diet.follow swallow eval , before restarting feeding. CODE STATUS: Full code Patient care was discussed with attending physician Dr. Rick Quintana MD PGY-2 I have carefully reviewed this document. Due to imperfections in the voice software, there could be grammatical errors including phonetic/typographic errors. This in no way compromises the medical care the patient is receiving Attending Provider Attestation/Addendum pt seen and examined, d/w resident team. In brief this is a 49yo M admitted to the ICU for ETOH withdrawal who was originally intubated and successfully extubated yesterday. This AM he is off precedex and groggy but waking up. Still on phenobarb and being titrated down. On exam his oral mucosa is dry, he responds to commands, lungs CTAB, HRRR, abd s/nt/bs+ and moves all extremities. He is stable to be downgraded from ICU. Will decrease pheonbarb to 60 today. His CXR showed some retrocardiac density ? atelectasis vs aspiration. pt without WBC# and afebrile today. pt will need formal swallow eval prior to PO intake case d/w ICU team ~38min required for eval, exam, review, intervention, discussion and formulation of POC for this pt
--- NOTE | 2024-08-09 12:04 | PD.INTPROG ---
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 Labs 08/09/24 05:00 08/09/24 05:00 Labs: Laboratory Results - last 24 hr 08/08/24 08/09/24 17:14 05:00 WBC 8.9 RBC 4.05 L Hgb 13.2 L Hct 38.3 L MCV 95 MCH 32.6 MCHC 34.5 RDW Std Deviation 42.5 Plt Count 239 D Neut % (Auto) 84 H Lymph % (Auto) 6 L [place] % (Auto) 7 Eos % (Auto) 0 Baso % (Auto) 0 Neut # (Auto) 7.5 Lymph # (Auto) 0.6 L [place] # (Auto) 0.7 Eos # (Auto) 0.0 Baso # (Auto) 0.0 Immature Gran # (Auto) 0.19 H Absolute Nucleated RBC 0.00 Immature Gran % 2 H Nucleated RBC % 0 Sodium 137 Potassium 3.9 Chloride 102 Carbon Dioxide 26.1 Anion Gap 9 BUN 6 L Creatinine 0.5 L Estim Creat Clear Calc 148.0 eGFR > 60 BUN/Creatinine Ratio 12 Glucose 160 H Calculated Osmolality 274 L Calcium 9.1 Corrected Calcium 9.3 Phosphorus 3.8 Magnesium 1.9 Albumin 3.8 Triglycerides 190 H Assessment & Plan Provider Notation Provider Notation: Although this document has been carefully reviewed, there may still be some phonetic and other typographical errors. These errors are purely grammatical due to imperfections in the software program and should not be construed in any way to compromise the substance of the patient's medical care during this visit. Thank you for the opportunity and privilege in assisting you with this patient's care and management.
--- NOTE | 2024-08-09 12:54 | ESPR_ITS ---
<Statement entered by Keshia Vera MD - 08/09/24 15:42> I discussed with and supervised the integrated marketing intern physician who took care of this patient. I personally saw and examined the patient and discussed the assessment and plan with the entire medicine team, including my attending Dr. Shah, I agree with the assessment and plan as documented below Patient seen and examined at bedside today in the ICU. Labs and imaging reviewed. 49-year-old male with past medical history of alcohol use disorder, hyperlipidemia, alcohol induced pancreatitis and diabetes mellitus type 2 [id number] who was admitted initially to telemetry for alcohol induced pancreatitis, during hospital stay patient started to have severe alcohol withdrawal symptoms with a CIWA of 20 which patient need to be transferred to ICU and intubation for airway protection, patient was extubated and started to present to some stridor for which was started on dexamethasone IV and racemic epinephrine nebulizations, we will continue phenobarbital taper as recommended per ICU team 60 mg IV twice daily today and tomorrow 60 mg IV daily. Patient is hemodynamically stable, somnolent, with family member at the bedside, patient has been downgraded from ICU to internal medicine team to continue care. Keshia Vera MD PGY-3 Disclaimer: Despite multiple revisions, due to the dictation software being used, the document bellow may not be free of grammatical errors including phonetic/typographic errors. However, this does not deter from our commitment to providing health care in the patient's best interest in mind. Documentation for date of: 08/09/24 Subjective Subjective Interval history: Patient seen today in the ICU found awake, somewhat alert, and physically restrained. Patient is off precedex drip for more than 24 hours. Patient in the ICU was on phenobarbital 360mg TID which was decreased to 130mg TID and then later decreased 60mg BID, as per signout by ICU team. Plan is to adjust phenobarbital dose to 60mg qday starting tomorrow. Will continue with CIWA protocol for alcohol withdrawal. Decadron was discontinued in view of resolution of stridor post-extubation. Exam Vital Signs Temp Pulse Resp BP Pulse Ox O2 Del Method O2 Flow Rate 97.6 F 94 23 H 117/77 96 Nasal Cannula 3 08/09/24 12:00 08/09/24 12:00 08/09/24 12:00 08/09/24 12:00 08/09/24 12:00 08/09/24 12:00 08/09/24 12:00 FiO2 40 08/08/24 10:52 Narrative Exam Physical Exam GENERAL: confused, on physical restraints, some agitation noted HEENT: Moist mucosa. Eyes open, symmetrical, & clear CARDIO: Heart RRR, no obvious murmurs PULM: No noted coughing/dyspnea CTA B/L, no R/W/R GI: Abdomen soft, nondistended, no pain on palpation. BSx4 SKIN/MSK/EXT: No wounds/rashes/edema/amputations, no pain on palpation. Pedal pulses present B/L Objective Labs 08/09/24 05:00 08/09/24 05:00 Labs: Laboratory Results - last 24 hr 08/08/24 08/09/24 17:14 05:00 WBC 8.9 RBC 4.05 L Hgb 13.2 L Hct 38.3 L MCV 95 MCH 32.6 MCHC 34.5 RDW Std Deviation 42.5 Plt Count 239 D Neut % (Auto) 84 H Lymph % (Auto) 6 L [place] % (Auto) 7 Eos % (Auto) 0 Baso % (Auto) 0 Neut # (Auto) 7.5 Lymph # (Auto) 0.6 L [place] # (Auto) 0.7 Eos # (Auto) 0.0 Baso # (Auto) 0.0 Immature Gran # (Auto) 0.19 H Absolute Nucleated RBC 0.00 Immature Gran % 2 H Nucleated RBC % 0 Sodium 137 Potassium 3.9 Chloride 102 Carbon Dioxide 26.1 Anion Gap 9 BUN 6 L Creatinine 0.5 L Estim Creat Clear Calc 148.0 eGFR > 60 BUN/Creatinine Ratio 12 Glucose 160 H Calculated Osmolality 274 L Calcium 9.1 Corrected Calcium 9.3 Phosphorus 3.8 Magnesium 1.9 Albumin 3.8 Triglycerides 190 H ABG Interpretation ABG results: 08/05/24 08/06/24 14:33 07:14 ABG pH 7.41 7.43 ABG pCO2 41 39 ABG pO2 87 238 H D ABG HCO3 26 26 ABG O2 Saturation 98 100 H ABG Base Excess 1 1 Quality Measures Quality Measures none Assessment & Plan Assessment Current Active Medications: Generic Name Dose Route Start Last Admin Trade Name Freq PRN Reason Stop Dose Admin Acetaminophen 650 mg 08/07/24 14:17 08/07/24 14:23 Acetaminophen Maria Dolores 325 Mg/10 Ml Udc NG 09/06/24 14:15 650 mg Q6HR PRN Administration Fever >100 or pain 1-3 Atorvastatin Calcium 40 mg 08/03/24 21:00 08/08/24 21:50 Atorvastatin Calcium 20 Mg Tablet PO 09/02/24 20:59 Not Given HS QUOC Dexamethasone Sodium Phosphate 4 mg 08/08/24 12:45 08/09/24 05:29 Dexamethasone Sod Phos Inj 4 Mg/Ml Vial IV 08/11/24 12:44 4 mg Q8HR QUOC Administration Protocol Dextrose 25 ml 08/03/24 01:02 Dextrose 50%-Water Inj 50 Ml Syringe IV 09/02/24 01:01 Q15MIN PRN BG 50-70 responsive npo pt Dextrose 50 ml 08/03/24 01:02 Dextrose 50%-Water Inj 50 Ml Syringe IV 09/02/24 01:01 Q15MIN PRN BG <50 OR BG <70 & pt unresponsive Enoxaparin Sodium 40 mg 08/03/24 09:00 08/09/24 09:25 Enoxaparin Sod Inj 40 Mg/0.4 Ml Syringe SC 08/17/24 08:59 40 mg QDAY QUOC Administration Gemfibrozil 600 mg 08/03/24 09:30 08/09/24 09:30 Gemfibrozil 600 Mg Tablet PO 09/02/24 09:29 Not Given QDAY QUOC Glucagon 1 mg 08/03/24 01:02 Glucagon Inj 1 Mg Vial IM Q15MIN PRN BG <70, and no IV access Insulin Human Lispro 0 unit 08/06/24 00:00 08/09/24 05:26 Insulin Lispro (Admelog) 1 Unit/0.01 Ml Unit SC 09/05/24 00:00 1 unit Q6HR QUOC Administration Protocol Lorazepam 0.5 mg 08/05/24 06:21 08/07/24 22:57 Lorazepam 2 Mg/Ml Vial IV 08/10/24 06:20 0.5 mg Q2HR PRN Administration CIWA SCORE 6-13 Lorazepam 2 mg 08/05/24 06:23 Lorazepam 2 Mg/Ml Vial IV 08/10/24 06:22 Q2HR PRN CIWA SCORE 20-25 Ondansetron HCl 4 mg 08/03/24 00:50 08/03/24 05:49 Ondansetron Inj 2 Mg/Ml Inj 2 Ml IV 09/02/24 00:49 4 mg Q6H PRN Administration NAUSEA OR VOMITING Protocol Pantoprazole Sodium 40 mg 08/09/24 09:45 08/09/24 09:38 Pantoprazole Inj 40 Mg Vial IVP 09/08/24 09:44 40 mg QDAY QUOC Administration Phenobarbital Sodium 60 mg 08/09/24 21:00 Phenobarbital Inj 130 Mg/1 Ml Vial IVP 08/23/24 20:59 BID QUOC Polyethylene Glycol 17 gm 08/05/24 09:00 08/09/24 09:31 Polyethylene Glycol 17 Gm Packet PO 09/04/24 08:59 Not Given QDAY QUOC Sennosides 1 tab 08/05/24 09:00 08/09/24 09:31 Senna Tablet PO 09/04/24 08:59 Not Given QDAY QUOC Protocol Sodium Chloride 3 ml 08/08/24 12:24 08/08/24 12:33 Sodium Chloride Rt Maria Dolores 0.9% 3 Ml Nebu INH 09/07/24 12:23 3 ml PRN PRN Administration SOLN Thiamine HCl 500 mg 08/07/24 06:00 08/09/24 05:28 Thiamine Inj 100 Mg/Ml Vial 2 Ml IVP 09/06/24 05:59 500 mg TID QUOC Administration Plan 49-year-old male with past medical history of pancreatitis, hyperlipidemia, diabetes who was initially admitted to floors for acute alcoholic pancreatitis, however hospital course was complicated with severe alcohol withdrawal requiring Precedex drip and intubation. Patient afterwards was downgraded to the floors after being weaned from precedex drip and extubated. #Acute metabolic encephalopathy DDx: alcohol withdrawal, sedation Patient is off precedex drip for more than 24 hours. Patient in the ICU was on phenobarbital 360mg TID which was decreased to 130mg TID and then later decreased 60mg BID, as per signout by ICU team Patient continues with physical restraints and is altered when evaluated in the ICU Plan to adjust phenobarbital to 60mg qday 08/10/2024 - Continue phenobarbital 60mg BID - on CIWA protocol with as needed ativan #Acute alcohol withdrawal #Alcoholic pancreatitis Patient with binge drinking from Thursday to Thursday prior to admission drink 1 bottle of tequila for 3 days Patient does state that usually at work he drinks 2x24 ounce beers per day Patient on admission had epigastric pain radiating to the back CT scan of the abdomen showed acute pancreatitis Patient has a history of pancreatitis episodes before related to alcohol use Lipase level 339, Triglycerides 889 gallbladder ultrasound negative for gallstones failed bedside swallow screen - Continue phenobarbital 60mg BID - on CIWA protocol with as needed ativan ?Lipitor 40 mg at bedtime ?Gemfibrozil 600 mg daily - on IV thiamine - referall to speech and physical therapy ordered #History of hyperlipidemia Lipid panel shows elevated triglycerides 889, down trended to 190 ?Lipitor 40 mg at bedtime ?Gemfibrozil 600 mg daily #Diabetes Mellitus type 2 Uses Lantus 21 units in the morning, 14 units at night A1C 6.1 - SSI - Hypoglycemia protocol in place #Inspiratory Stidor-resolved Case discussed with my senior Dr. Vera PGY-[address] Alyssa Oviedo MD PGY-1 Disposition: ICU--> telemetry Fluids: None Feeding: NPO till speech eval Thrombo prophylaxis: Lovenox Gastric Ulcer prophylaxis: Pantoprazole CODE STATUS: Full code Attending Provider Attestation/Addendum Arcelia Joya, , attest that I was physically present for the penny portions of the service and evaluated the patient with the resident and I reviewed and discussed the case with the resident and agree with the resident's findings and plans of care as documented above Patient seen and evaluated this afternoon, downgraded from ICU today. Patient was extubated yesterday and currently on a phenobarbital taper. Patient unable to speak due to sore throat. However, he is comprehending questions appropriately. However, he remains confused and trying to get out of bed. Family is at bedside for patient to remain calm. Continue CIWA protocol. Patient has failed swallow evaluation, pending ST and PT at this time
[2024-08-09] MEDS: LORazepam 2 MG/ML VIAL 1 MG IVP ×3 (13:32→20:28)
[2024-08-09] MEDS: PHENobarbital INJ 130 MG/1 ML VIAL 60 MG IVP (21:35)
[2024-08-10] VITALS (8 sets, daily range): BP systolic 104–156; BP diastolic 69–100; PULSE 87–104; RESP 18–97; TEMP 36.1–37.1; O2SAT 94–98; BMI 21.8; BMI 23.8
[2024-08-10] MEDS: INSULIN LISPRO (AdmeLOG) 1 UNIT/0.01 ML UNIT SC ×4 (00:07→17:37)
[2024-08-10] MEDS: LORazepam 2 MG/ML VIAL 1 MG IVP ×3 (00:08→14:00)
[2024-08-10 05:15] LABS: Basophils % (Auto) 0 % (0-2.5); Eosinophils # (Auto) 0.1 Thou/mm3 (0.0-0.5); Eosinophils % (Auto) 1 % (0-10); Hematocrit 40.6 % (41.0-53.0); Hemoglobin 13.6 g/dL (13.5-16.0); Immature Granulocytes % (Auto) 2 % (0-0); Immature Granulocytes Auto 0.22 Thou/mm3 (0.00-0.00); Lymphocytes # (Auto) 1.2 Thou/mm3 (1.0-4.8); Lymphocytes % (Auto) 13 % (10-50); Mean Corpuscular HGB Conc 33.5 g/dl (31.0-37.0); Mean Corpuscular Hemoglobin 32.2 pg (25.0-35.0); Mean Corpuscular Volume 96 fL (80-100); Monocytes # (Auto) 0.9 Thou/mm3 (0.0-0.8); Monocytes % (Auto) 9 % (0-12); Neutrophils % (Auto) 74 % (37-80); Nucleated Red Blood Cell % 0 /100 WBC (0); Platelet Count 316 Thou/mm3 (140-440); RDW Standard Deviation 43.8 fL (35.1-43.9); Red Blood Count 4.23 Miln/mm3 (4.50-5.90); White Blood Count 9.5 Thou/mm3 (3.8-10.6)
[2024-08-10] MEDS: THIAMINE INJ 100 MG/ML VIAL 2 ML 500 MG IVP ×3 (05:37→21:43)
[2024-08-10 05:44] LABS: Alanine Aminotransferase 30 U/L (10-49); Albumin, Serum 4.1 gm/dL (3.5-5.0); Albumin/Globulin Ratio 1.5 (1.2-2.2); Alkaline Phosphatase 181 U/L (46-116); Anion Gap 16 (7-16); Aspartate Amino Transferase 35 U/L (0-34); BUN/Creatinine Ratio 11 Ratio (12-20); Bilirubin,Total 0.4 mg/dL (0.3-1.2); Blood Urea Nitrogen 8 mg/dL (9-23); Calcium 9.2 mg/dL (8.3-10.6); Calcium (Corrected) 9.2 mg/dL (8.5-10.1); Carbon Dioxide 16.8 mMol/L (20.0-31.0); Chloride 101 mMol/L (98-107); Creatinine (Component) 0.7 mg/dL (0.6-1.3); Estimated Creatinine Clearance 105.7 mL/min (>60); Globulin 2.7 gm/dL (2.3-3.5); Glucose 222 mg/dL (74-106); Magnesium 1.7 mg/dL (1.6-2.6); Osmolality,Calculated 273 (275-295); Phosphorous 2.8 mg/dL (2.4-5.1); Potassium 3.7 mMol/L (3.4-5.1); Sodium 134 mMol/L (136-145); Total Protein 6.8 gm/dL (5.7-8.2); eGFR > 60 See Note
[2024-08-10] MEDS: PHENobarbital INJ 130 MG/1 ML VIAL 60 MG IVP (08:09)
[2024-08-10] MEDS: PANTOPRAZOLE INJ 40 MG VIAL IVP (08:09)
[2024-08-10] MEDS: ENOXAPARIN SOD INJ 40 MG/0.4 ML SYRINGE SC (08:09)
--- NOTE | 2024-08-10 09:40 | PCS.ST ---
Chart reviewed completed. Swallow eval deferred for tomorrow since pt was asleep, unresponsive to attempts to wake him up. RN asked to contact ST if pt is appropriate for swallowing evaluation later today.
--- NOTE | 2024-08-10 10:01 | ESPR_ITS ---
<Statement entered by Magaly Doran MD - 08/10/24 15:18> I discussed with and supervised the dietary internship physician who took care of this patient. I personally saw and examined the patient and discussed the assessment and plan with the entire medicine team, including my attending Dr. Prince, I agree with most of the assessment and plan as documented below Magaly Doran M.D. PGY-2 Disclaimer: Despite multiple revisions, due to the dictation software being used, the document bellow may not be free of grammatical errors including phonetic/typographic errors. However, this does not deter from our commitment to providing health care in the patient's best interest in mind. Documentation for date of: 08/10/24 Subjective Subjective Interval history: Patient seen today at the bedside found lethargic, sleepy barely arousable. No overnight events reported. Vital signs stable at this time. On examination some stridor noted on ausculation, decadron 4mg iv q8hrs ordered. Due to patients mental status phenobarbital afternoon dose was held. CIWA in the am around 17. Will continue to monitor and continue to titrate phenobarbital as tolerated. Exam Vital Signs Temp Pulse Resp BP Pulse Ox O2 Del Method O2 Flow Rate 97.0 F 90 27 H 116/87 H 95 Room Air 3 08/10/24 04:00 08/10/24 08:35 08/10/24 08:35 08/10/24 08:00 08/10/24 08:00 08/10/24 08:00 08/09/24 18:06 FiO2 40 08/08/24 10:52 Narrative Exam Physical Exam GENERAL: lethargic, on physical restraints, HEENT: Moist mucosa. Eyes open, symmetrical, & clear CARDIO: Heart RRR, no obvious murmurs PULM: No noted coughing/dyspnea CTA B/L, no R/W/R GI: Abdomen soft, nondistended, no pain on palpation. BSx4 SKIN/MSK/EXT: No wounds/rashes/edema/amputations, no pain on palpation. Pedal pulses present B/L Objective Labs 08/10/24 04:17 08/10/24 13:07 Labs: Laboratory Results - last 24 hr 08/10/24 04:17 WBC 9.5 RBC 4.23 L Hgb 13.6 Hct 40.6 L MCV 96 MCH 32.2 MCHC 33.5 RDW Std Deviation 43.8 Plt Count 316 D Neut % (Auto) 74 Lymph % (Auto) 13 [place] % (Auto) 9 Eos % (Auto) 1 Baso % (Auto) 0 Neut # (Auto) 7.0 Lymph # (Auto) 1.2 [place] # (Auto) 0.9 H Eos # (Auto) 0.1 Baso # (Auto) 0.0 Immature Gran # (Auto) 0.22 H Absolute Nucleated RBC 0.00 Immature Gran % 2 H Nucleated RBC % 0 Sodium 134 L Potassium 3.7 Chloride 101 Carbon Dioxide 16.8 L Anion Gap 16 BUN 8 L Creatinine 0.7 Estim Creat Clear Calc 105.7 eGFR > 60 BUN/Creatinine Ratio 11 L Glucose 222 H D Calculated Osmolality 273 L Calcium 9.2 Corrected Calcium 9.2 Phosphorus 2.8 Magnesium 1.7 Total Bilirubin 0.4 AST 35 H ALT 30 Alkaline Phosphatase 181 H Total Protein 6.8 Albumin 4.1 Globulin 2.7 Albumin/Globulin Ratio 1.5 ABG Interpretation ABG results: 08/05/24 08/06/24 14:33 07:14 ABG pH 7.41 7.43 ABG pCO2 41 39 ABG pO2 87 238 H D ABG HCO3 26 26 ABG O2 Saturation 98 100 H ABG Base Excess 1 1 Quality Measures Quality Measures none Assessment & Plan Assessment Current Active Medications: Generic Name Dose Route Start Last Admin Trade Name Freq PRN Reason Stop Dose Admin Acetaminophen 650 mg 08/07/24 14:17 08/07/24 14:23 Acetaminophen Maria Dolores 325 Mg/10 Ml Udc NG 09/06/24 14:15 650 mg Q6HR PRN Administration Fever >100 or pain 1-3 Atorvastatin Calcium 40 mg 08/03/24 21:00 08/09/24 21:38 Atorvastatin Calcium 20 Mg Tablet PO 09/02/24 20:59 Not Given HS QUOC Dextrose 25 ml 08/03/24 01:02 Dextrose 50%-Water Inj 50 Ml Syringe IV 09/02/24 01:01 Q15MIN PRN BG 50-70 responsive npo pt Dextrose 50 ml 08/03/24 01:02 Dextrose 50%-Water Inj 50 Ml Syringe IV 09/02/24 01:01 Q15MIN PRN BG <50 OR BG <70 & pt unresponsive Enoxaparin Sodium 40 mg 08/03/24 09:00 08/10/24 08:09 Enoxaparin Sod Inj 40 Mg/0.4 Ml Syringe SC 08/17/24 08:59 40 mg QDAY QUOC Administration Gemfibrozil 600 mg 08/03/24 09:30 08/10/24 08:02 Gemfibrozil 600 Mg Tablet PO 09/02/24 09:29 Not Given QDAY QUOC Glucagon 1 mg 08/03/24 01:02 Glucagon Inj 1 Mg Vial IM Q15MIN PRN BG <70, and no IV access Insulin Glargine 5 unit 08/10/24 09:00 Insulin Glargine (Lantus) 5 Unit/0.05 Ml (Per 5 Units) SC 09/09/24 08:59 QDAY QUOC Insulin Human Lispro 0 unit 08/06/24 00:00 08/10/24 05:36 Insulin Lispro (Admelog) 1 Unit/0.01 Ml Unit SC 09/05/24 00:00 2 unit Q6HR QUOC Administration Protocol Lorazepam 1 mg 08/09/24 13:22 08/10/24 04:48 Lorazepam 2 Mg/Ml Vial IVP 08/14/24 13:21 1 mg Q2H PRN Administration [facility] 14-19 Ondansetron HCl 4 mg 08/03/24 00:50 08/03/24 05:49 Ondansetron Inj 2 Mg/Ml Inj 2 Ml IV 09/02/24 00:49 4 mg Q6H PRN Administration NAUSEA OR VOMITING Protocol Pantoprazole Sodium 40 mg 08/09/24 09:45 08/10/24 08:09 Pantoprazole Inj 40 Mg Vial IVP 09/08/24 09:44 40 mg QDAY QUOC Administration Phenobarbital Sodium 60 mg 08/09/24 21:00 08/10/24 08:09 Phenobarbital Inj 130 Mg/1 Ml Vial IVP 08/23/24 20:59 60 mg BID QUOC Administration Polyethylene Glycol 17 gm 08/05/24 09:00 08/10/24 08:02 Polyethylene Glycol 17 Gm Packet PO 09/04/24 08:59 Not Given QDAY ON LICENSE OF [facility] Sennosides 1 tab 08/05/24 09:00 08/10/24 08:02 Senna Tablet PO 09/04/24 08:59 Not Given QDAY QUOC Protocol Sodium Chloride 3 ml 08/08/24 12:24 08/08/24 12:33 Sodium Chloride Rt Maria Dolores 0.9% 3 Ml Nebu INH 09/07/24 12:23 3 ml PRN PRN Administration SOLN Thiamine HCl 500 mg 08/07/24 06:00 08/10/24 05:37 Thiamine Inj 100 Mg/Ml Vial 2 Ml IVP 09/06/24 05:59 500 mg TID QUOC Administration Plan 49-year-old male with past medical history of pancreatitis, hyperlipidemia, diabetes who was initially admitted to floors for acute alcoholic pancreatitis, however hospital course was complicated with severe alcohol withdrawal requiring Precedex drip and intubation. Patient afterwards was downgraded to the floors after being weaned from precedex drip and extubated. #Acute metabolic encephalopathy DDx: alcohol withdrawal, sedation Patient is off precedex drip for more than 24 hours. Patient in the ICU was on phenobarbital 360mg TID which was decreased to 130mg TID and then later decreased 60mg BID, as per signout by ICU team Patient continues with physical restraints and is lethargic, barely arousable when evaluated in the ICU - Continue phenobarbital 60mg BID- afternoon dose held today - wean phenobarbital as tolerated - on CIWA protocol with as needed ativan #Acute alcohol withdrawal #Alcoholic pancreatitis Patient with binge drinking from Thursday to Thursday prior to admission drink 1 bottle of tequila for 3 days Patient does state that usually at work he drinks 2x24 ounce beers per day Patient on admission had epigastric pain radiating to the back CT scan of the abdomen showed acute pancreatitis Patient has a history of pancreatitis episodes before related to alcohol use Lipase level 339, Triglycerides 889 gallbladder ultrasound negative for gallstones failed bedside swallow screen - Continue phenobarbital 60mg BID-afternoon dose held - wean phenobarbital as tolerated - on CIWA protocol with as needed ativan ?Lipitor 40 mg at bedtime ?Gemfibrozil 600 mg daily - on IV thiamine - referall to speech and physical therapy ordered #Inspiratory Stidor stridor noted on physical exam - on decadron 4mg IV q8hrs #History of hyperlipidemia Lipid panel shows elevated triglycerides 889, down trended to 190 ?Lipitor 40 mg at bedtime ?Gemfibrozil 600 mg daily #Diabetes Mellitus type 2 Uses Lantus 21 units in the morning, 14 units at night A1C 6.1 - SSI - Hypoglycemia protocol in place Case discussed with my senior Dr. Doran PGY-[address] Suresh Oviedo MD PGY-1 Disposition: ICU--> telemetry Fluids: None Feeding: NPO till speech eval Thrombo prophylaxis: Lovenox Gastric Ulcer prophylaxis: Pantoprazole CODE STATUS: Full code Attending Provider Attestation/Addendum I attest that I was physically present for the evaluation, physical examination, lab and imaging review of the patient with the residents. I discussed the case with the residents and agree with the findings and plans of care as documented above. Patient is a 49 years old male with past medical history of alcohol abuse, hyperlipidemia, diabetes and alcohol induced pancreatitis who was initially admitted for acute alcohol induced pancreatitis. He was transferred to ICU after being intubated for airway protection while needing high sedation for severe alcohol withdrawal. After management in the ICU, patient was extubated and transferred to medical floor for further management. At bedside today, patient is sleepy, hard to arouse. Has been able to protect his airway, maintaining saturation and pH level. Noted to have some stridor on auscultation, we will resume Decadron IV. We will hold his evening phenobarbital dose due to his somnolence. We will continue to monitor his CIWA, and titrate down his phenobarbital as tolerated. Continues to be on insulin regimen for diabetes, gemfibrozil and Lipitor for hyperlipidemia. We will closely monitor his mental status, plan to discuss with ICU if patient shows symptoms of not being able to protect his airway. Val Prince MD
[2024-08-10] MEDS: INSULIN GLARGINE (Lantus) 5 UNIT/0.05 ML (PER 5 UNITS) SC (10:32)
[2024-08-10 13:16] LABS: Base Excess, Venous -6 (-3-3); O2 Saturation, Venous 83 % (96-97); PCO2, Venous 29 mmHg (36-56); PO2, Venous 44 mmHg (15-58); pH, Venous 7.39 (7.33-7.66)
[2024-08-10 13:47] LABS: Alanine Aminotransferase 21 U/L (10-49); Albumin, Serum 4.3 gm/dL (3.5-5.0); Albumin/Globulin Ratio 1.6 (1.2-2.2); Alkaline Phosphatase 231 U/L (46-116); Anion Gap 10 (7-16); Aspartate Amino Transferase 27 U/L (0-34); BUN/Creatinine Ratio 11 Ratio (12-20); Bilirubin,Total 0.4 mg/dL (0.3-1.2); Blood Urea Nitrogen 9 mg/dL (9-23); Calcium 9.3 mg/dL (8.3-10.6); Calcium (Corrected) 9.3 mg/dL (8.5-10.1); Carbon Dioxide 19.7 mMol/L (20.0-31.0); Chloride 102 mMol/L (98-107); Creatinine (Component) 0.8 mg/dL (0.6-1.3); Estimated Creatinine Clearance 92.5 mL/min (>60); Globulin 2.7 gm/dL (2.3-3.5); Glucose 201 mg/dL (74-106); Osmolality,Calculated 269 (275-295); Potassium 3.9 mMol/L (3.4-5.1); Sodium 132 mMol/L (136-145); eGFR > 60 See Note
[2024-08-10] MEDS: DEXAMETHASONE SOD PHOS INJ 4 MG/ML VIAL IV ×2 (14:01→21:43)
--- NOTE | 2024-08-10 14:10 | PC.PT ---
PT eval withheld today due to patient is obtunded and non-responsive to verbal and tactile stimuli when PT attempted to work with patient. Per RN, patient is on restraints and has been lethargic since last night. Will re-attempt PT evaluation at another time.
--- NOTE | 2024-08-10 15:27 | PC.SS ---
Update: Patient tele downgrade. Patient remains lethargic. CIWA protocol in place. Vitals are stable. Patient on restraints.
[2024-08-11] VITALS: BP 108/78; PULSE 105; PULSE 108; RESP 34; O2SAT 92
[2024-08-11] MEDS: INSULIN LISPRO (AdmeLOG) 1 UNIT/0.01 ML UNIT SC ×4 (00:32→17:19)
[2024-08-11 04:00] VITALS: BP 101/68; PULSE 102; RESP 33; TEMP 36.3; O2SAT 97
[2024-08-11 05:48] LABS: Basophils # (Auto) 0.1 Thou/mm3 (0.0-0.2); Basophils % (Auto) 0 % (0-2.5); Eosinophils % (Auto) 0 % (0-10); Hematocrit 40.3 % (41.0-53.0); Hemoglobin 13.7 g/dL (13.5-16.0); Immature Granulocytes % (Auto) 2 % (0-0); Immature Granulocytes Auto 0.23 Thou/mm3 (0.00-0.00); Lymphocytes # (Auto) 1.4 Thou/mm3 (1.0-4.8); Lymphocytes % (Auto) 10 % (10-50); Mean Corpuscular Hemoglobin 32.7 pg (25.0-35.0); Mean Corpuscular Volume 96 fL (80-100); Monocytes % (Auto) 7 % (0-12); Neutrophils # (Auto) 12.1 Thou/mm3 (1.8-7.7); Neutrophils % (Auto) 82 % (37-80); Nucleated Red Blood Cell % 0 /100 WBC (0); Platelet Count 406 Thou/mm3 (140-440); RDW Standard Deviation 43.6 fL (35.1-43.9); Red Blood Count 4.19 Miln/mm3 (4.50-5.90); White Blood Count 14.9 Thou/mm3 (3.8-10.6)
[2024-08-11 06:00] VITALS: BMI 20.9
[2024-08-11] MEDS: DEXAMETHASONE SOD PHOS INJ 4 MG/ML VIAL IV ×3 (06:02→20:55)
[2024-08-11] MEDS: THIAMINE INJ 100 MG/ML VIAL 2 ML 500 MG IVP ×3 (06:02→20:56)
[2024-08-11 06:09] LABS: Ammonia 23 uMol/L (11-32)
[2024-08-11 07:00] LABS: Alanine Aminotransferase 24 U/L (10-49); Albumin, Serum 4.2 gm/dL (3.5-5.0); Albumin/Globulin Ratio 1.7 (1.2-2.2); Alkaline Phosphatase 177 U/L (46-116); Anion Gap 19 (7-16); Aspartate Amino Transferase 20 U/L (0-34); BUN/Creatinine Ratio 15 Ratio (12-20); Bilirubin,Total 0.3 mg/dL (0.3-1.2); Blood Urea Nitrogen 12 mg/dL (9-23); Carbon Dioxide 15.1 mMol/L (20.0-31.0); Chloride 102 mMol/L (98-107); Creatinine (Component) 0.8 mg/dL (0.6-1.3); Estimated Creatinine Clearance 89.2 mL/min (>60); Globulin 2.5 gm/dL (2.3-3.5); Glucose 201 mg/dL (74-106); Magnesium 1.7 mg/dL (1.6-2.6); Osmolality,Calculated 277 (275-295); Phosphorous 3.6 mg/dL (2.4-5.1); Sodium 136 mMol/L (136-145); Total Protein 6.7 gm/dL (5.7-8.2); eGFR > 60 See Note
[2024-08-11 08:00] VITALS: BP 110/75; PULSE 97; PULSE 98; RESP 27; TEMP 36.9; O2SAT 92
[2024-08-11] MEDS: PANTOPRAZOLE INJ 40 MG VIAL IVP (08:20)
[2024-08-11] MEDS: ENOXAPARIN SOD INJ 40 MG/0.4 ML SYRINGE SC (08:21)
[2024-08-11] MEDS: INSULIN GLARGINE (Lantus) 5 UNIT/0.05 ML (PER 5 UNITS) 10 UNIT SC (08:23)
[2024-08-11] MEDS: DEXTROSE 5%-NS 1,000 ML 100 ML IV ×2 (08:36→17:19)
--- NOTE | 2024-08-11 09:37 | PCS.ST ---
Swallow evaluation completed. Diet entered: dysphagia 1- puree, honey thick liquids. Needs 1:1 feeder. See report for details.
[2024-08-11] MEDS: POLYETHYLENE GLYCOL 17 GM PACKET PO (10:19)
[2024-08-11] MEDS: SENNA TABLET 1 TAB PO (10:19)
[2024-08-11] MEDS: gemfibroziL 600 MG TABLET PO (10:19)
[2024-08-11 12:00] VITALS: BP 106/74; PULSE 98; PULSE 99; RESP 20; TEMP 37.3; O2SAT 95
[2024-08-11 13:53] VITALS: BMI 13.0
--- NOTE | 2024-08-11 14:39 | ESPR_ITS ---
<Statement entered by Magaly Doran MD - 08/11/24 15:38> I discussed with and supervised the international specialist physician who took care of this patient. I personally saw and examined the patient and discussed the assessment and plan with the entire medicine team, including my attending Dr. Prince, I agree with most of the assessment and plan as documented below Magaly Doran M.D. PGY-2 Documentation for date of: 08/11/24 Subjective Subjective Interval history: Patient seen today at the bedside fine awake, alert, somewhat lethargic. No overnight events reported. Vital signs stable at this time. Labs at this time stable. Patient is more awake today we will continue with CIWA monitoring but will discontinue Ativan at this time. Phenobarbital adjusted to 30 mg twice daily and will continue with IV fluid hydration. Will continue to monitor at this time and continue to wean off phenobarbital. Exam Vital Signs Temp Pulse Resp BP Pulse Ox O2 Del Method O2 Flow Rate 99.2 F 98 20 106/74 95 Room Air 3 08/11/24 12:00 08/11/24 12:00 08/11/24 12:00 08/11/24 12:00 08/11/24 12:00 08/11/24 12:00 08/09/24 18:06 FiO2 40 08/08/24 10:52 Narrative Exam Physical Exam GENERAL: NAD, lethargic, on physical restraints HEENT: Moist mucosa. Eyes open, symmetrical, & clear CARDIO: Heart RRR, no obvious murmurs PULM: No noted coughing/dyspnea CTA B/L, no R/W/R GI: Abdomen soft, nondistended, no pain on palpation. BSx4 SKIN/MSK/EXT: No wounds/rashes/edema/amputations, no pain on palpation. Pedal pulses present B/L NEURO: no focal neuro deficits, able to move all 4 extremities Objective Labs 08/11/24 04:36 08/11/24 14:06 Labs: Laboratory Results - last 24 hr 08/11/24 04:36 WBC 14.9 H D RBC 4.19 L Hgb 13.7 Hct 40.3 L MCV 96 MCH 32.7 MCHC 34.0 RDW Std Deviation 43.6 Plt Count 406 D Neut % (Auto) 82 H Lymph % (Auto) 10 [place] % (Auto) 7 Eos % (Auto) 0 Baso % (Auto) 0 Neut # (Auto) 12.1 H Lymph # (Auto) 1.4 [place] # (Auto) 1.0 H Eos # (Auto) 0.0 Baso # (Auto) 0.1 Immature Gran # (Auto) 0.23 H Absolute Nucleated RBC 0.00 Immature Gran % 2 H Nucleated RBC % 0 Sodium 136 Potassium 4.0 Chloride 102 Carbon Dioxide 15.1 L Anion Gap 19 H BUN 12 Creatinine 0.8 Estim Creat Clear Calc 89.2 eGFR > 60 BUN/Creatinine Ratio 15 Glucose 201 H Calculated Osmolality 277 Calcium 9.0 Corrected Calcium 9.0 Phosphorus 3.6 Magnesium 1.7 Total Bilirubin 0.3 AST 20 ALT 24 Alkaline Phosphatase 177 H D Ammonia 23 Total Protein 6.7 Albumin 4.2 Globulin 2.5 Albumin/Globulin Ratio 1.7 ABG Interpretation ABG results: 08/05/24 08/06/24 08/10/24 14:33 07:14 13:07 ABG pH 7.41 7.43 ABG pCO2 41 39 ABG pO2 87 238 H D ABG HCO3 26 26 ABG O2 Saturation 98 100 H ABG Base Excess 1 1 VBG pH 7.39 VBG pCO2 29 L VBG pO2 44 VBG Base Excess -6 L Quality Measures Quality Measures none Assessment & Plan Assessment Current Active Medications: Generic Name Dose Route Start Last Admin Trade Name Freq PRN Reason Stop Dose Admin Acetaminophen 650 mg 08/07/24 14:17 08/07/24 14:23 Acetaminophen Maria Dolores 325 Mg/10 Ml Udc NG 09/06/24 14:15 650 mg Q6HR PRN Administration Fever >100 or pain 1-3 Atorvastatin Calcium 40 mg 08/03/24 21:00 08/10/24 21:31 Atorvastatin Calcium 20 Mg Tablet PO 09/02/24 20:59 Not Given HS QUOC Dexamethasone Sodium Phosphate 4 mg 08/10/24 14:00 08/11/24 13:41 Dexamethasone Sod Phos Inj 4 Mg/Ml Vial IV 09/09/24 13:59 4 mg Q8HR QUOC Administration Protocol Dextrose 25 ml 08/03/24 01:02 Dextrose 50%-Water Inj 50 Ml Syringe IV 09/02/24 01:01 Q15MIN PRN BG 50-70 responsive npo pt Dextrose 50 ml 08/03/24 01:02 Dextrose 50%-Water Inj 50 Ml Syringe IV 09/02/24 01:01 Q15MIN PRN BG <50 OR BG <70 & pt unresponsive Enoxaparin Sodium 40 mg 08/03/24 09:00 08/11/24 08:21 Enoxaparin Sod Inj 40 Mg/0.4 Ml Syringe SC 08/17/24 08:59 40 mg QDAY QUOC Administration Gemfibrozil 600 mg 08/03/24 09:30 08/11/24 10:19 Gemfibrozil 600 Mg Tablet PO 09/02/24 09:29 600 mg QDAY QUOC Administration Glucagon 1 mg 08/03/24 01:02 Glucagon Inj 1 Mg Vial IM Q15MIN PRN BG <70, and no IV access Dextrose/Sodium Chloride 1,000 mls @ 100 mls/hr 08/11/24 08:15 08/11/24 08:36 D5-Ns IV 09/10/24 08:14 100 mls/hr .Q10H QUOC Administration Insulin Glargine 10 unit 08/11/24 09:00 08/11/24 08:23 Insulin Glargine (Lantus) 5 Unit/0.05 Ml (Per 5 Units) SC 09/10/24 08:59 10 unit QDAY QUOC Administration Insulin Human Lispro 0 unit 08/06/24 00:00 08/11/24 12:25 Insulin Lispro (Admelog) 1 Unit/0.01 Ml Unit SC 09/05/24 00:00 4 unit Q6HR QUOC Administration Protocol Lorazepam 1 mg 08/09/24 13:22 08/10/24 14:00 Lorazepam 2 Mg/Ml Vial IVP 08/14/24 13:21 1 mg Q2H PRN Administration [facility] Ondansetron HCl 4 mg 08/03/24 00:50 08/03/24 05:49 Ondansetron Inj 2 Mg/Ml Inj 2 Ml IV 09/02/24 00:49 4 mg Q6H PRN Administration NAUSEA OR VOMITING Protocol Pantoprazole Sodium 40 mg 08/09/24 09:45 08/11/24 08:20 Pantoprazole Inj 40 Mg Vial IVP 09/08/24 09:44 40 mg QDAY QUOC Administration Phenobarbital Sodium 30 mg 08/11/24 13:30 Phenobarbital Inj 130 Mg/1 Ml Vial IVP 08/25/24 13:29 BID QUOC Polyethylene Glycol 17 gm 08/05/24 09:00 08/11/24 10:19 Polyethylene Glycol 17 Gm Packet PO 09/04/24 08:59 17 gm QDAY QUOC Administration Sennosides 1 tab 08/05/24 09:00 08/11/24 10:19 Senna Tablet PO 09/04/24 08:59 1 tab QDAY QUOC Administration Protocol Sodium Chloride 3 ml 08/08/24 12:24 08/08/24 12:33 Sodium Chloride Rt Maria Dolores 0.9% 3 Ml Nebu INH 09/07/24 12:23 3 ml PRN PRN Administration SOLN Thiamine HCl 500 mg 08/07/24 06:00 08/11/24 13:40 Thiamine Inj 100 Mg/Ml Vial 2 Ml IVP 09/06/24 05:59 500 mg TID QUOC Administration Plan 49-year-old male with past medical history of pancreatitis, hyperlipidemia, diabetes who was initially admitted to floors for acute alcoholic pancreatitis, however hospital course was complicated with severe alcohol withdrawal requiring Precedex drip and intubation. Patient afterwards was downgraded to the floors after being weaned from precedex drip and extubated. #Acute metabolic encephalopathy DDx: alcohol withdrawal, sedation Patient is off precedex drip for more than 24 hours. Patient in the ICU was on phenobarbital 360mg TID which was decreased to 130mg TID and then later decreased 60mg BID, as per signout by ICU team Patient continues with physical restraints and is lethargic, barely arousable when evaluated in the ICU - Continue phenobarbital 30mg BID - wean phenobarbital as tolerated - Continue CIWA monitoring #Acute alcohol withdrawal #Alcoholic pancreatitis Patient with binge drinking from Thursday to Thursday prior to admission drink 1 bottle of tequila for 3 days Patient does state that usually at work he drinks 2x24 ounce beers per day Patient on admission had epigastric pain radiating to the back CT scan of the abdomen showed acute pancreatitis Patient has a history of pancreatitis episodes before related to alcohol use Lipase level 339, Triglycerides 889 gallbladder ultrasound negative for gallstones failed bedside swallow screen - Continue phenobarbital 30mg BID - wean phenobarbital as tolerated - on CIWA protocol ?Lipitor 40 mg at bedtime ?Gemfibrozil 600 mg daily - on IV thiamine - referall to speech and physical therapy ordered #Inspiratory Stidor stridor noted on physical exam - on decadron 4mg IV q8hrs #History of hyperlipidemia Lipid panel shows elevated triglycerides 889, down trended to 190 ?Lipitor 40 mg at bedtime ?Gemfibrozil 600 mg daily #Diabetes Mellitus type 2 Uses Lantus 21 units in the morning, 14 units at night A1C 6.1 - glargine 10units - SSI - Hypoglycemia protocol in place Case discussed with my senior Dr. Doran PGY-[address] Suresh Oviedo MD PGY-1 Disposition: Telemetry Fluids: None Feeding: Carb consistent Thrombo prophylaxis: Lovenox Gastric Ulcer prophylaxis: Pantoprazole CODE STATUS: Full code Attending Provider Attestation/Addendum I attest that I was physically present for the evaluation, physical examination, lab and imaging review of the patient with the residents. I discussed the case with the residents and agree with the findings and plans of care as documented above. At bedside today, patient appears more alert and awake compared to yesterday. As per his RN and physical therapy, he was able to follow commands earlier and participate with physical therapy. We will adjust his phenobarbital dosing to 30 mg twice daily today. Also started on D5 normal saline. We will encourage oral intake as well. Continues to be on CIWA protocol but we will discontinue the benzodiazepines. Continues to be on thiamine and vitamins, insulin regimen, Lipitor and gemfibrozil. Continues to be on Decadron for stridor, appears to be improving. Val Prince MD
[2024-08-11 14:47] LABS: Albumin, Serum 4.1 gm/dL (3.5-5.0); Anion Gap 12 (7-16); BUN/Creatinine Ratio 13 Ratio (12-20); Blood Urea Nitrogen 12 mg/dL (9-23); Calcium 9.4 mg/dL (8.3-10.6); Calcium (Corrected) 9.4 mg/dL (8.5-10.1); Carbon Dioxide 21.5 mMol/L (20.0-31.0); Chloride 105 mMol/L (98-107); Creatinine (Component) 0.9 mg/dL (0.6-1.3); Estimated Creatinine Clearance 79.3 mL/min (>60); Glucose 326 mg/dL (74-106); Osmolality,Calculated 288 (275-295); Phosphorous 3.1 mg/dL (2.4-5.1); Potassium 3.4 mMol/L (3.4-5.1); Sodium 138 mMol/L (136-145); eGFR > 60 See Note
[2024-08-11 16:00] VITALS: BP 122/80; PULSE 94; PULSE 99; RESP 28; TEMP 36.6; O2SAT 94
[2024-08-11 20:00] VITALS: BP 121/78; PULSE 88; PULSE 91; RESP 25; TEMP 36.8; O2SAT 95
[2024-08-11] MEDS: ATORVASTATIN CALCIUM 20 MG TABLET 40 MG PO (20:24)
[2024-08-12] VITALS: BP 131/65; PULSE 86; PULSE 97; RESP 23; TEMP 37.2; O2SAT 97
[2024-08-12 04:00] VITALS: BP 127/86; PULSE 82; PULSE 88; RESP 22; TEMP 37.1; O2SAT 98
[2024-08-12] MEDS: THIAMINE INJ 100 MG/ML VIAL 2 ML 500 MG IVP ×3 (05:25→21:01)
[2024-08-12] MEDS: DEXTROSE 5%-NS 1,000 ML 100 ML IV ×2 (05:26→15:46)
[2024-08-12] MEDS: DEXAMETHASONE SOD PHOS INJ 4 MG/ML VIAL IV (05:26)
[2024-08-12 06:00] VITALS: BMI 22.1
[2024-08-12 06:25] LABS: Basophils # (Auto) 0.1 Thou/mm3 (0.0-0.2); Basophils % (Auto) 1 % (0-2.5); Eosinophils % (Auto) 0 % (0-10); Hematocrit 38.1 % (41.0-53.0); Immature Granulocytes % (Auto) 1 % (0-0); Lymphocytes # (Auto) 1.6 Thou/mm3 (1.0-4.8); Lymphocytes % (Auto) 11 % (10-50); Mean Corpuscular HGB Conc 34.1 g/dl (31.0-37.0); Mean Corpuscular Hemoglobin 32.3 pg (25.0-35.0); Mean Corpuscular Volume 95 fL (80-100); Monocytes # (Auto) 0.9 Thou/mm3 (0.0-0.8); Monocytes % (Auto) 6 % (0-12); Neutrophils # (Auto) 11.5 Thou/mm3 (1.8-7.7); Neutrophils % (Auto) 81 % (37-80); Nucleated Red Blood Cell % 0 /100 WBC (0); Platelet Count 447 Thou/mm3 (140-440); RDW Standard Deviation 43.1 fL (35.1-43.9); Red Blood Count 4.03 Miln/mm3 (4.50-5.90); White Blood Count 14.2 Thou/mm3 (3.8-10.6)
[2024-08-12 06:59] LABS: Alanine Aminotransferase 18 U/L (10-49); Albumin, Serum 4.1 gm/dL (3.5-5.0); Albumin/Globulin Ratio 1.5 (1.2-2.2); Alkaline Phosphatase 154 U/L (46-116); Anion Gap 13 (7-16); Aspartate Amino Transferase 19 U/L (0-34); BUN/Creatinine Ratio 13 Ratio (12-20); Bilirubin,Total 0.3 mg/dL (0.3-1.2); Blood Urea Nitrogen 8 mg/dL (9-23); Carbon Dioxide 21.6 mMol/L (20.0-31.0); Chloride 102 mMol/L (98-107); Creatinine (Component) 0.6 mg/dL (0.6-1.3); Estimated Creatinine Clearance 123.3 mL/min (>60); Globulin 2.8 gm/dL (2.3-3.5); Glucose 277 mg/dL (74-106); Magnesium 1.8 mg/dL (1.6-2.6); Osmolality,Calculated 282 (275-295); Phosphorous 2.9 mg/dL (2.4-5.1); Potassium 3.6 mMol/L (3.4-5.1); Sodium 137 mMol/L (136-145); Total Protein 6.9 gm/dL (5.7-8.2); eGFR > 60 See Note
[2024-08-12 08:00] VITALS: BP 118/82; PULSE 84; PULSE 96; RESP 25; TEMP 36.6; O2SAT 94
[2024-08-12] MEDS: INSULIN GLARGINE (Lantus) 5 UNIT/0.05 ML (PER 5 UNITS) 10 UNIT SC ×2 (08:11→09:58)
[2024-08-12] MEDS: ENOXAPARIN SOD INJ 40 MG/0.4 ML SYRINGE SC (08:12)
[2024-08-12] MEDS: INSULIN LISPRO (AdmeLOG) 1 UNIT/0.01 ML UNIT SC ×4 (08:12→21:02)
[2024-08-12] MEDS: POLYETHYLENE GLYCOL 17 GM PACKET PO (08:13)
[2024-08-12] MEDS: PANTOPRAZOLE INJ 40 MG VIAL IVP (08:13)
[2024-08-12] MEDS: gemfibroziL 600 MG TABLET PO (08:13)
[2024-08-12] MEDS: SENNA TABLET 1 TAB PO (08:13)
--- NOTE | 2024-08-12 09:50 | PC.SS ---
Follow up note: Patient was recently extubated. Notes indicate he's confused and on restraints.
[2024-08-12] MEDS: GABAPENTIN 300 MG CAPSULE PO ×2 (10:01→21:01)
[2024-08-12 11:58] VITALS: BMI 23.8
[2024-08-12 12:00] VITALS: BP 112/74; PULSE 81; PULSE 95; RESP 26; TEMP 37; O2SAT 95
--- NOTE | 2024-08-12 13:57 | ESPR_ITS ---
<Statement entered by Magaly Doran MD - 08/12/24 15:46> I discussed with and supervised the compensation intern physician who took care of this patient. I personally saw and examined the patient and discussed the assessment and plan with the entire medicine team, including my attending , I agree with most of the assessment and plan as documented below Magaly Doran M.D. PGY-2 Documentation for date of: 08/12/24 Subjective Subjective Interval history: Patient seen today at the bedside. No overnight events reported. Vital signs stable at this time. Labs stable at this time. Patient continues to be somewhat lethargic phenobarbital was discontinued and gabapentin 300mg BID added. Decadron was discontinued as on physical exam no evidence of stridor noted. Insulin regimen has been adjusted. Will continue to monitor at this time. Exam Vital Signs Temp Pulse Resp BP Pulse Ox O2 Del Method O2 Flow Rate 98.6 F 81 26 H 112/74 95 Room Air 3 08/12/24 12:00 08/12/24 12:00 08/12/24 12:00 08/12/24 12:00 08/12/24 12:00 08/12/24 12:00 08/09/24 18:06 FiO2 40 08/08/24 10:52 Narrative Exam Physical Exam GENERAL: NAD, lethargic HEENT: Moist mucosa. Eyes open, symmetrical, & clear CARDIO: Heart RRR, no obvious murmurs PULM: No noted coughing/dyspnea CTA B/L, no R/W/R GI: Abdomen soft, nondistended, no pain on palpation. BSx4 SKIN/MSK/EXT: No wounds/rashes/edema/amputations, no pain on palpation. Pedal pulses present B/L NEURO: no focal neuro deficits, able to move all 4 extremities Objective Labs 08/12/24 05:13 08/12/24 05:13 Labs: Laboratory Results - last 24 hr 08/11/24 08/12/24 14:06 05:13 WBC 14.2 H RBC 4.03 L Hgb 13.0 L Hct 38.1 L MCV 95 MCH 32.3 MCHC 34.1 RDW Std Deviation 43.1 Plt Count 447 H D Neut % (Auto) 81 H Lymph % (Auto) 11 [place] % (Auto) 6 Eos % (Auto) 0 Baso % (Auto) 1 Neut # (Auto) 11.5 H Lymph # (Auto) 1.6 [place] # (Auto) 0.9 H Eos # (Auto) 0.0 Baso # (Auto) 0.1 Immature Gran # (Auto) 0.20 H Absolute Nucleated RBC 0.00 Immature Gran % 1 H Nucleated RBC % 0 Sodium 138 137 Potassium 3.4 D 3.6 Chloride 105 102 Carbon Dioxide 21.5 21.6 Anion Gap 12 13 BUN 12 8 L Creatinine 0.9 0.6 Estim Creat Clear Calc 79.3 123.3 eGFR > 60 > 60 BUN/Creatinine Ratio 13 13 Glucose 326 H D 277 H Calculated Osmolality 288 282 Calcium 9.4 9.0 Corrected Calcium 9.4 9.0 Phosphorus 3.1 2.9 Magnesium 1.8 Total Bilirubin 0.3 AST 19 ALT 18 Alkaline Phosphatase 154 H D Total Protein 6.9 Albumin 4.1 4.1 Globulin 2.8 Albumin/Globulin Ratio 1.5 ABG Interpretation ABG results: 08/05/24 08/06/24 08/10/24 14:33 07:14 13:07 ABG pH 7.41 7.43 ABG pCO2 41 39 ABG pO2 87 238 H D ABG HCO3 26 26 ABG O2 Saturation 98 100 H ABG Base Excess 1 1 VBG pH 7.39 VBG pCO2 29 L VBG pO2 44 VBG Base Excess -6 L Quality Measures Quality Measures none Assessment & Plan Assessment Current Active Medications: Generic Name Dose Route Start Last Admin Trade Name Freq PRN Reason Stop Dose Admin Acetaminophen 650 mg 08/07/24 14:17 08/07/24 14:23 Acetaminophen Maria Dolores 325 Mg/10 Ml Udc NG 09/06/24 14:15 650 mg Q6HR PRN Administration Fever >100 or pain 1-3 Atorvastatin Calcium 40 mg 08/03/24 21:00 08/11/24 20:24 Atorvastatin Calcium 20 Mg Tablet PO 09/02/24 20:59 40 mg HS QUOC Administration Dextrose 25 ml 08/03/24 01:02 Dextrose 50%-Water Inj 50 Ml Syringe IV 09/02/24 01:01 Q15MIN PRN BG 50-70 responsive npo pt Dextrose 50 ml 08/03/24 01:02 Dextrose 50%-Water Inj 50 Ml Syringe IV 09/02/24 01:01 Q15MIN PRN BG <50 OR BG <70 & pt unresponsive Enoxaparin Sodium 40 mg 08/03/24 09:00 08/12/24 08:12 Enoxaparin Sod Inj 40 Mg/0.4 Ml Syringe SC 08/17/24 08:59 40 mg QDAY QUOC Administration Gabapentin 300 mg 08/12/24 09:15 08/12/24 10:01 Gabapentin 300 Mg Capsule PO 09/11/24 09:14 300 mg BID QUOC Administration Gemfibrozil 600 mg 08/03/24 09:30 08/12/24 08:13 Gemfibrozil 600 Mg Tablet PO 09/02/24 09:29 600 mg QDAY QUOC Administration Glucagon 1 mg 08/03/24 01:02 Glucagon Inj 1 Mg Vial IM Q15MIN PRN BG <70, and no IV access Dextrose/Sodium Chloride 1,000 mls @ 100 mls/hr 08/11/24 08:15 08/12/24 05:26 D5-Ns IV 09/10/24 08:14 100 mls/hr .Q10H QUOC Administration Insulin Glargine 20 unit 08/13/24 09:00 Insulin Glargine (Lantus) 5 Unit/0.05 Ml (Per 5 Units) SC 09/11/24 09:14 QDAY QUOC Insulin Human Lispro 0 unit 08/12/24 08:00 08/12/24 11:26 Insulin Lispro (Admelog) 1 Unit/0.01 Ml Unit SC 09/11/24 07:59 4 unit ACHS QUOC Administration Protocol Ondansetron HCl 4 mg 08/03/24 00:50 08/03/24 05:49 Ondansetron Inj 2 Mg/Ml Inj 2 Ml IV 09/02/24 00:49 4 mg Q6H PRN Administration NAUSEA OR VOMITING Protocol Pantoprazole Sodium 40 mg 08/09/24 09:45 08/12/24 08:13 Pantoprazole Inj 40 Mg Vial IVP 09/08/24 09:44 40 mg QDAY QUOC Administration Polyethylene Glycol 17 gm 08/05/24 09:00 08/12/24 08:13 Polyethylene Glycol 17 Gm Packet PO 09/04/24 08:59 17 gm QDAY QUOC Administration Sennosides 1 tab 08/05/24 09:00 08/12/24 08:13 Senna Tablet PO 09/04/24 08:59 1 tab QDAY QUOC Administration Protocol Sodium Chloride 3 ml 08/08/24 12:24 08/08/24 12:33 Sodium Chloride Rt Maria Dolores 0.9% 3 Ml Nebu INH 09/07/24 12:23 3 ml PRN PRN Administration SOLN Thiamine HCl 500 mg 08/07/24 06:00 08/12/24 13:24 Thiamine Inj 100 Mg/Ml Vial 2 Ml IVP 09/06/24 05:59 500 mg TID QUOC Administration Plan 49-year-old male with past medical history of pancreatitis, hyperlipidemia, diabetes who was initially admitted to floors for acute alcoholic pancreatitis, however hospital course was complicated with severe alcohol withdrawal requiring Precedex drip and intubation. Patient afterwards was downgraded to the floors after being weaned from precedex drip and extubated. #Acute metabolic encephalopathy-improving DDx: alcohol withdrawal, sedation Patient is off precedex drip for more than 24 hours. Patient in the ICU was on phenobarbital 360mg TID which was decreased to 130mg TID and then later decreased 60mg BID, as per signout by ICU team Patient continues with physical restraints and is lethargic, barely arousable when evaluated in the ICU - Continue CIWA monitoring #Acute alcohol withdrawal #Alcoholic pancreatitis Patient with binge drinking from Thursday to Thursday prior to admission drink 1 bottle of tequila for 3 days Patient does state that usually at work he drinks 2x24 ounce beers per day Patient on admission had epigastric pain radiating to the back CT scan of the abdomen showed acute pancreatitis Patient has a history of pancreatitis episodes before related to alcohol use Lipase level 339, Triglycerides 889 gallbladder ultrasound negative for gallstones failed bedside swallow screen - on CIWA protocol ?Lipitor 40 mg at bedtime ?Gemfibrozil 600 mg daily - on IV thiamine #Inspiratory Stidor-resolved stridor noted on physical exam was on decadron 4mg IV q8hrs now discontinued #History of hyperlipidemia Lipid panel shows elevated triglycerides 889, down trended to 190 ?Lipitor 40 mg at bedtime ?Gemfibrozil 600 mg daily #Diabetes Mellitus type 2 Uses Lantus 21 units in the morning, 14 units at night A1C 6.1 - glargine 10units - SSI - Hypoglycemia protocol in place Case discussed with my senior Dr. Doran PGY-[address] Suresh Oviedo MD PGY-1 Disposition: Telemetry Fluids: None Feeding: Carb consistent Thrombo prophylaxis: Lovenox Gastric Ulcer prophylaxis: Pantoprazole CODE STATUS: Full code Attending Provider Attestation/Addendum I attest that I was physically present for the evaluation, physical examination, lab and imaging review of the patient with the residents. I discussed the case with the residents and agree with the findings and plans of care as documented above. At bedside today, patient?s mentation has improved significantly.? He is alert and oriented, able to answer questions and follow commands appropriately.? Restraints have been removed.? CIWA score this morning was 5.? Patient complains of sore throat, likely secondary to intubation before.? Stopped phenobarbital and started on gabapentin 300 twice daily.? We will also start his steroid age.? No longer has stridor.? Continues to be on IV hydration, we will do a bedside swallow evaluation and start him on diet.? If patient is able to tolerate diet, we will decrease his fluids.? Noted to have elevated glucose this morning, we will adjust his insulin regimen. Val Prince MD
[2024-08-12 16:00] VITALS: BP 108/72; PULSE 84; PULSE 92; RESP 26; TEMP 36.7; O2SAT 95
[2024-08-12 20:00] VITALS: BP 102/81; PULSE 91; PULSE 92; RESP 19; TEMP 37.3; O2SAT 95
[2024-08-12] MEDS: ATORVASTATIN CALCIUM 20 MG TABLET 40 MG PO (21:01)
[2024-08-13] VITALS: BP 94/65; PULSE 93; PULSE 98; RESP 22; TEMP 36.9; O2SAT 95
[2024-08-13] MEDS: DEXTROSE 5%-NS 1,000 ML 100 ML IV (02:05)
[2024-08-13 04:00] VITALS: BP 103/69; PULSE 85; PULSE 89; RESP 18; TEMP 37; O2SAT 96
[2024-08-13] MEDS: THIAMINE INJ 100 MG/ML VIAL 2 ML 500 MG IVP ×3 (05:26→21:16)
[2024-08-13 05:47] VITALS: BMI 22.8
[2024-08-13 06:12] LABS: Basophils # (Auto) 0.1 Thou/mm3 (0.0-0.2); Basophils % (Auto) 1 % (0-2.5); Eosinophils # (Auto) 0.1 Thou/mm3 (0.0-0.5); Eosinophils % (Auto) 1 % (0-10); Hematocrit 33.5 % (41.0-53.0); Hemoglobin 11.7 g/dL (13.5-16.0); Immature Granulocytes % (Auto) 1 % (0-0); Immature Granulocytes Auto 0.19 Thou/mm3 (0.00-0.00); Lymphocytes % (Auto) 13 % (10-50); Mean Corpuscular HGB Conc 34.9 g/dl (31.0-37.0); Mean Corpuscular Hemoglobin 33.1 pg (25.0-35.0); Mean Corpuscular Volume 95 fL (80-100); Monocytes % (Auto) 6 % (0-12); Neutrophils # (Auto) 12.1 Thou/mm3 (1.8-7.7); Neutrophils % (Auto) 79 % (37-80); Nucleated Red Blood Cell % 0 /100 WBC (0); Platelet Count 492 Thou/mm3 (140-440); RDW Standard Deviation 43.3 fL (35.1-43.9); Red Blood Count 3.54 Miln/mm3 (4.50-5.90); White Blood Count 15.4 Thou/mm3 (3.8-10.6)
[2024-08-13 07:03] LABS: Alanine Aminotransferase 15 U/L (10-49); Albumin, Serum 3.5 gm/dL (3.5-5.0); Albumin/Globulin Ratio 1.5 (1.2-2.2); Alkaline Phosphatase 124 U/L (46-116); Anion Gap 10 (7-16); Aspartate Amino Transferase 17 U/L (0-34); BUN/Creatinine Ratio 7 Ratio (12-20); Bilirubin,Total 0.3 mg/dL (0.3-1.2); Blood Urea Nitrogen < 5 mg/dL (9-23); Calcium 8.3 mg/dL (8.3-10.6); Calcium (Corrected) 8.7 mg/dL (8.5-10.1); Carbon Dioxide 24.6 mMol/L (20.0-31.0); Chloride 101 mMol/L (98-107); Creatinine (Component) 0.7 mg/dL (0.6-1.3); Estimated Creatinine Clearance 105.7 mL/min (>60); Globulin 2.4 gm/dL (2.3-3.5); Glucose 343 mg/dL (74-106); Magnesium 1.5 mg/dL (1.6-2.6); Osmolality,Calculated 283 (275-295); Phosphorous 2.8 mg/dL (2.4-5.1); Potassium 3.2 mMol/L (3.4-5.1); Sodium 136 mMol/L (136-145); Total Protein 5.9 gm/dL (5.7-8.2); eGFR > 60 See Note
[2024-08-13 08:00] VITALS: BP 115/76; PULSE 84; PULSE 90; RESP 18; TEMP 36.9; O2SAT 98
[2024-08-13] MEDS: PANTOPRAZOLE INJ 40 MG VIAL IVP (10:24)
[2024-08-13] MEDS: INSULIN GLARGINE (Lantus) 5 UNIT/0.05 ML (PER 5 UNITS) 20 UNIT SC (10:24)
[2024-08-13] MEDS: INSULIN LISPRO (AdmeLOG) 1 UNIT/0.01 ML UNIT 2 UNIT SC ×3 (10:25→17:31)
[2024-08-13] MEDS: INSULIN LISPRO (AdmeLOG) 1 UNIT/0.01 ML UNIT SC ×4 (10:25→21:15)
[2024-08-13] MEDS: ENOXAPARIN SOD INJ 40 MG/0.4 ML SYRINGE SC (10:26)
[2024-08-13] MEDS: SENNA TABLET 1 TAB PO (10:26)
[2024-08-13] MEDS: gemfibroziL 600 MG TABLET PO (10:26)
[2024-08-13] MEDS: GABAPENTIN 300 MG CAPSULE PO ×2 (10:26→20:16)
[2024-08-13] MEDS: Magnesium Sulfate 4 GM Ivpb 4 GM/50 ML BAG IV (10:38)
[2024-08-13] MEDS: POTASSIUM CHLORIDE 10% 20 MEQ/15 ML UDC 40 MEQ PO (10:38)
[2024-08-13] MEDS: POLYETHYLENE GLYCOL 17 GM PACKET PO (10:39)
[2024-08-13 12:00] VITALS: BP 110/73; PULSE 89; PULSE 90; RESP 19; TEMP 37.2; O2SAT 99
--- NOTE | 2024-08-13 12:32 | PD.RESDS ---
Planned Discharge Date 08/13/24 DS: Providers Provider Date of admission: 08/03/24 00:44 Primary care physician: Physician No Primary/Family Admitting Provider: Val Prince MD Attending Provider on Admission: Val Prince MD Consults: 08/06/24 12:50 Referral Registered Dietitian Routine Comment: tube feeds 08/09/24 16:25 Referral Physical Therapy Routine Comment: Physician Instructions: 08/09/24 16:26 Referral Speech Therapy Stat Comment: Attending Provider on DC: Marcell Oviedo MD Discharging Provider: Marcell Oviedo MD Hospital Course Hospital Course Hospital course: Patient seen today at the bedside. No overnight events reported. Vital signs stable at this time. Labs stable at this time. Patient continues to be somewhat lethargic phenobarbital was discontinued and gabapentin 300mg BID added. Decadron was discontinued as on physical exam no evidence of stridor noted. Insulin regimen has been adjusted. Will continue to monitor at this time. Time Spent with Patient Time attestation: Total time spent providing and/or coordinating discharge services: Exam Vital Signs Temp Pulse Resp BP Pulse Ox O2 Del Method O2 Flow Rate 98.5 F 84 18 115/76 98 Room Air 3 08/13/24 08:00 08/13/24 08:00 08/13/24 08:00 08/13/24 08:00 08/13/24 08:00 08/13/24 08:00 08/09/24 18:06 FiO2 40 08/08/24 10:52 Discharge Plan Prescriptions/Referrals Prescriptions/Med Rec: No Action atorvastatin 40 mg tablet 40 mg PO HS Patient Comments: take 1 tablet by mouth once daily insulin glargine [Lantus Solostar U-100 Insulin] 100 unit/mL (3 mL) insulin pen 20 unit SUBCUT .am Patient Comments: inject 20 units subcutaneously every morning and 14 units subcutaneously every evening Referrals: No Primary/Family,Physician [Primary Care Provider] - Patient/Caregiver Discharge Instructions Print Language: Irish
[2024-08-13] MEDS: POTASSIUM CHLORIDE 10% 20 MEQ/15 ML UDC PO (12:36)
--- NOTE | 2024-08-13 14:34 | PD.RESPRO ---
Documentation for date of: 08/13/24 Subjective Subjective Interval history: Patient seen today at the bedside fine awake, alert, oriented x 3. No overnight events reported. CIWA score today 0. Vital signs stable at this time. Labs at this time stable electrolytes repleted. Blood sugars continue to remain elevated insulin regimen adjusted. Will recheck in the afternoon if continue to be elevated will readjust insulin regimen. Physical therapy reevaluated the patient determined the patient is stable allowed to go home no need for acute rehab. Anticipate discharge in the next 24-48 hours. Exam Vital Signs Temp Pulse Resp BP Pulse Ox O2 Del Method O2 Flow Rate 98.9 F 89 19 110/73 99 Room Air 3 08/13/24 12:00 08/13/24 12:00 08/13/24 12:00 08/13/24 12:00 08/13/24 12:00 08/13/24 12:00 08/09/24 18:06 FiO2 40 08/08/24 10:52 Narrative Exam Physical Exam GENERAL: NAD, lethargic HEENT: Moist mucosa. Eyes open, symmetrical, & clear CARDIO: Heart RRR, no obvious murmurs PULM: No noted coughing/dyspnea CTA B/L, no R/W/R GI: Abdomen soft, nondistended, no pain on palpation. BSx4 SKIN/MSK/EXT: No wounds/rashes/edema/amputations, no pain on palpation. Pedal pulses present B/L NEURO: no focal neuro deficits, able to move all 4 extremities Objective Labs 08/13/24 04:42 08/13/24 04:42 Labs: Laboratory Results - last 24 hr 08/13/24 04:42 WBC 15.4 H RBC 3.54 L Hgb 11.7 L Hct 33.5 L MCV 95 MCH 33.1 MCHC 34.9 RDW Std Deviation 43.3 Plt Count 492 H D Neut % (Auto) 79 Lymph % (Auto) 13 [place] % (Auto) 6 Eos % (Auto) 1 Baso % (Auto) 1 Neut # (Auto) 12.1 H Lymph # (Auto) 2.0 [place] # (Auto) 1.0 H Eos # (Auto) 0.1 Baso # (Auto) 0.1 Immature Gran # (Auto) 0.19 H Absolute Nucleated RBC 0.00 Immature Gran % 1 H Nucleated RBC % 0 Sodium 136 Potassium 3.2 L Chloride 101 Carbon Dioxide 24.6 Anion Gap 10 BUN < 5 L Creatinine 0.7 Estim Creat Clear Calc 105.7 eGFR > 60 BUN/Creatinine Ratio 7 L Glucose 343 H D Calculated Osmolality 283 Calcium 8.3 Corrected Calcium 8.7 Phosphorus 2.8 Magnesium 1.5 L Total Bilirubin 0.3 AST 17 ALT 15 Alkaline Phosphatase 124 H D Total Protein 5.9 Albumin 3.5 D Globulin 2.4 Albumin/Globulin Ratio 1.5 ABG Interpretation ABG results: 08/05/24 08/06/24 08/10/24 14:33 07:14 13:07 ABG pH 7.41 7.43 ABG pCO2 41 39 ABG pO2 87 238 H D ABG HCO3 26 26 ABG O2 Saturation 98 100 H ABG Base Excess 1 1 VBG pH 7.39 VBG pCO2 29 L VBG pO2 44 VBG Base Excess -6 L Quality Measures Quality Measures none Assessment & Plan Assessment Current Active Medications: Generic Name Dose Route Start Last Admin Trade Name Freq PRN Reason Stop Dose Admin Acetaminophen 650 mg 08/07/24 14:17 08/07/24 14:23 Acetaminophen Maria Dolores 325 Mg/10 Ml Udc NG 09/06/24 14:15 650 mg Q6HR PRN Administration Fever >100 or pain 1-3 Atorvastatin Calcium 40 mg 08/03/24 21:00 08/12/24 21:01 Atorvastatin Calcium 20 Mg Tablet PO 09/02/24 20:59 40 mg HS QUOC Administration Dextrose 25 ml 08/03/24 01:02 Dextrose 50%-Water Inj 50 Ml Syringe IV 09/02/24 01:01 Q15MIN PRN BG 50-70 responsive npo pt Dextrose 50 ml 08/03/24 01:02 Dextrose 50%-Water Inj 50 Ml Syringe IV 09/02/24 01:01 Q15MIN PRN BG <50 OR BG <70 & pt unresponsive Enoxaparin Sodium 40 mg 08/03/24 09:00 08/13/24 10:26 Enoxaparin Sod Inj 40 Mg/0.4 Ml Syringe SC 08/17/24 08:59 40 mg QDAY QUOC Administration Gabapentin 300 mg 08/12/24 09:15 08/13/24 10:26 Gabapentin 300 Mg Capsule PO 09/11/24 09:14 300 mg BID QUOC Administration Gemfibrozil 600 mg 08/03/24 09:30 08/13/24 10:26 Gemfibrozil 600 Mg Tablet PO 09/02/24 09:29 600 mg QDAY QUOC Administration Glucagon 1 mg 08/03/24 01:02 Glucagon Inj 1 Mg Vial IM Q15MIN PRN BG <70, and no IV access Insulin Glargine 20 unit 08/13/24 09:00 08/13/24 10:24 Insulin Glargine (Lantus) 5 Unit/0.05 Ml (Per 5 Units) SC 09/11/24 09:14 20 unit QDAY QUOC Administration Insulin Human Lispro 0 unit 08/13/24 07:14 08/13/24 12:37 Insulin Lispro (Admelog) 1 Unit/0.01 Ml Unit SC 09/11/24 07:59 5 unit ACHS [facility] Administration Protocol Insulin Human Lispro 2 unit 08/13/24 07:30 08/13/24 12:36 Insulin Lispro (Admelog) 1 Unit/0.01 Ml Unit SC 09/12/24 07:29 2 unit AC QUOC Administration Ondansetron HCl 4 mg 08/03/24 00:50 08/03/24 05:49 Ondansetron Inj 2 Mg/Ml Inj 2 Ml IV 09/02/24 00:49 4 mg Q6H PRN Administration NAUSEA OR VOMITING Protocol Pantoprazole Sodium 40 mg 08/14/24 09:00 Pantoprazole 40 Mg Tablet PO 09/08/24 09:44 QDAY QUOC Polyethylene Glycol 17 gm 08/05/24 09:00 08/13/24 10:39 Polyethylene Glycol 17 Gm Packet PO 09/04/24 08:59 17 gm QDAY QUOC Administration Sennosides 1 tab 08/05/24 09:00 08/13/24 10:26 Senna Tablet PO 09/04/24 08:59 1 tab QDAY QUOC Administration Protocol Sodium Chloride 3 ml 08/08/24 12:24 08/08/24 12:33 Sodium Chloride Rt Maria Dolores 0.9% 3 Ml Nebu INH 09/07/24 12:23 3 ml PRN PRN Administration SOLN Thiamine HCl 500 mg 08/07/24 06:00 08/13/24 13:32 Thiamine Inj 100 Mg/Ml Vial 2 Ml IVP 09/06/24 05:59 500 mg TID QUOC Administration Plan 49-year-old male with past medical history of pancreatitis, hyperlipidemia, diabetes who was initially admitted to floors for acute alcoholic pancreatitis, however hospital course was complicated with severe alcohol withdrawal requiring Precedex drip and intubation. Patient afterwards was downgraded to the floors after being weaned from precedex drip and extubated. #Acute metabolic encephalopathy-resolved DDx: alcohol withdrawal, sedation Patient is off precedex drip for more than 24 hours. Patient in the ICU was on phenobarbital 360mg TID which was decreased to 130mg TID and then later decreased 60mg BID, as per signout by ICU team Patient continues with physical restraints and is lethargic, barely arousable when evaluated in the ICU - Continue CIWA monitoring #Acute alcohol withdrawal #Alcoholic pancreatitis Patient with binge drinking from Thursday to Thursday prior to admission drink 1 bottle of tequila for 3 days Patient does state that usually at work he drinks 2x24 ounce beers per day Patient on admission had epigastric pain radiating to the back CT scan of the abdomen showed acute pancreatitis Patient has a history of pancreatitis episodes before related to alcohol use Lipase level 339, Triglycerides 889 gallbladder ultrasound negative for gallstones failed bedside swallow screen - gabapentin 300 BID - on CIWA protocol ?Lipitor 40 mg at bedtime ?Gemfibrozil 600 mg daily - on IV thiamine #Inspiratory Stidor-resolved stridor noted on physical exam was on decadron 4mg IV q8hrs now discontinued #History of hyperlipidemia Lipid panel shows elevated triglycerides 889, down trended to 190 ?Lipitor 40 mg at bedtime ?Gemfibrozil 600 mg daily #Diabetes Mellitus type 2 Uses Lantus 21 units in the morning, 14 units at night A1C 6.1 - glargine 10units - SSI - Hypoglycemia protocol in place Case discussed with my attending Dr. Suresh Oviedo MD PGY-1 Disposition: Telemetry Fluids: None Feeding: Carb consistent Thrombo prophylaxis: Lovenox Gastric Ulcer prophylaxis: Pantoprazole CODE STATUS: Full code Attending Provider Attestation/Addendum I attest that I was physically present for the evaluation, physical examination, lab and imaging review of the patient with the residents. I discussed the case with the residents and agree with the findings and plans of care as documented above. At bedside today, patient continues to be alert and oriented, able to answer questions and follow commands appropriately. Was reevaluated by physical therapy today, stated patient will be able to discharge home. Currently on gabapentin 300 twice daily, CIWA score this morning was 0. Patient does complain of mild sore throat, likely due to intubation. Stopped IV hydration, patient has been tolerating his diet well. Had potassium of 3.2 this morning, repleted accordingly. Patient had blood glucose of 325, we will adjust his insulin regimen and monitor closely. Plan to discharge patient home after his blood glucose comes down to safe levels. Val Prince MD
[2024-08-13 16:00] VITALS: BP 115/85; PULSE 87; PULSE 89; RESP 22; TEMP 37.1; O2SAT 98
[2024-08-13 20:00] VITALS: BP 109/75; PULSE 90; PULSE 92; RESP 14; TEMP 37.1; O2SAT 96
[2024-08-13] MEDS: ATORVASTATIN CALCIUM 20 MG TABLET 40 MG PO (20:16)
[2024-08-14] VITALS: BP 115/78; PULSE 91; PULSE 92; RESP 17; TEMP 36.6; O2SAT 96
[2024-08-14 01:49] VITALS: PULSE 90; RESP 20; RESP 96
[2024-08-14 04:00] VITALS: BP 94/65; PULSE 88; PULSE 92; RESP 20; TEMP 36.6; O2SAT 92
[2024-08-14] MEDS: THIAMINE INJ 100 MG/ML VIAL 2 ML 500 MG IVP ×2 (05:31→13:58)
[2024-08-14 05:43] LABS: Basophils # (Auto) 0.1 Thou/mm3 (0.0-0.2); Basophils % (Auto) 1 % (0-2.5); Eosinophils # (Auto) 0.1 Thou/mm3 (0.0-0.5); Eosinophils % (Auto) 1 % (0-10); Hematocrit 34.6 % (41.0-53.0); Hemoglobin 11.8 g/dL (13.5-16.0); Immature Granulocytes % (Auto) 1 % (0-0); Immature Granulocytes Auto 0.16 Thou/mm3 (0.00-0.00); Lymphocytes # (Auto) 2.2 Thou/mm3 (1.0-4.8); Lymphocytes % (Auto) 19 % (10-50); Mean Corpuscular HGB Conc 34.1 g/dl (31.0-37.0); Mean Corpuscular Hemoglobin 32.6 pg (25.0-35.0); Mean Corpuscular Volume 96 fL (80-100); Monocytes # (Auto) 0.8 Thou/mm3 (0.0-0.8); Monocytes % (Auto) 7 % (0-12); Neutrophils # (Auto) 8.2 Thou/mm3 (1.8-7.7); Neutrophils % (Auto) 71 % (37-80); Nucleated Red Blood Cell % 0 /100 WBC (0); Platelet Count 560 Thou/mm3 (140-440); RDW Standard Deviation 43.4 fL (35.1-43.9); Red Blood Count 3.62 Miln/mm3 (4.50-5.90); White Blood Count 11.6 Thou/mm3 (3.8-10.6)
[2024-08-14 06:01] LABS: Alanine Aminotransferase 21 U/L (10-49); Albumin, Serum 3.7 gm/dL (3.5-5.0); Albumin/Globulin Ratio 1.4 (1.2-2.2); Alkaline Phosphatase 116 U/L (46-116); Anion Gap 10 (7-16); Aspartate Amino Transferase 26 U/L (0-34); BUN/Creatinine Ratio 8 Ratio (12-20); Bilirubin,Total 0.3 mg/dL (0.3-1.2); Blood Urea Nitrogen < 5 mg/dL (9-23); Calcium 8.8 mg/dL (8.3-10.6); Carbon Dioxide 27.5 mMol/L (20.0-31.0); Chloride 98 mMol/L (98-107); Creatinine (Component) 0.6 mg/dL (0.6-1.3); Estimated Creatinine Clearance 123.3 mL/min (>60); Globulin 2.6 gm/dL (2.3-3.5); Glucose 204 mg/dL (74-106); Osmolality,Calculated 273 (275-295); Phosphorous 3.5 mg/dL (2.4-5.1); Potassium 4.2 mMol/L (3.4-5.1); Sodium 135 mMol/L (136-145); Total Protein 6.3 gm/dL (5.7-8.2); eGFR > 60 See Note
--- NOTE | 2024-08-14 07:25 | ESDS_ITS ---
Planned Discharge Date 08/14/24 DS: Providers Provider Date of admission: 08/03/24 00:44 Primary care physician: Physician No Primary/Family Admitting Provider: Val Prince MD Attending Provider on Admission: Val Prince MD Consults: 08/06/24 12:50 Referral Registered Dietitian Routine Comment: tube feeds 08/09/24 16:25 Referral Physical Therapy Routine Comment: Physician Instructions: 08/09/24 16:26 Referral Speech Therapy Stat Comment: Attending Provider on DC: Keshia Vera MD Discharging Provider: Kesiha Vera MD DS: Diagnosis Problem List Completed Was Problem List Reviewed/Reconciled?: Yes Hospital Course Hospital Course Hospital course: 49-year-old man with past medical history of pancreatitis, hyperlipidemia, diabetes mellitus type 2 insulin-dependent who came to the ED with chief complaint of severe abdominal pain patient is stated at the moment admission that he was drinking for 3 days in a row hard liquor around 1 bottle per day and later started to present severe abdominal abdominal pain for which he came to the ED, on admission at the ED CT abdomen pelvis showed pancreatitis, lipase was elevated for which patient was admitted for further treatment and management of alcohol induced pancreatitis, during hospital stay patient started to present acute alcohol withdrawal for which initially was managed with CIWA protocol with benzodiazepines otherwise withdrawals became worse with a CIWA around 26 and patient was upgraded to the ICU, was intubated for airway protection and was started on propofol and Precedex drip for severe alcohol withdrawal, after patient was more stable successfully extubated and downgraded to floor for continuity of care by internal medicine team, alcohol withdrawal resolved pa tient was tolerating p.o., ambulating, CIWA score was 0 for which patient was safe and stable for discharge home. All questions were answered recommendation were given, to come at the ED at anytime if his symptoms does not improve or become worse, patient was counseled extensively about quitting drinking alcohol and resources were given. Patient was discharged home with ? Chloraseptic lozenges twice daily as needed for sore throat, ? Gabapentin p.o. at bedtime for 5 days ? Follow-up with PCP 5 to 7 days after discharge ? Continue home medications #Acute metabolic encephalopathy resolved #Acute alcohol withdrawal resolved #Alcoholic pancreatitis received #Hypertriglyceridemia #Stridor resolved #History of hyperlipidemia #Diabetes mellitus type 2 insulin-dependent Patient discussed with my attending Dr Suresh Vera MD PGY-3 Disclaimer: Despite multiple revisions, due to the dictation software being used, the document bellow may not be free of grammatical errors including phonetic/typographic errors. However, this does not deter from our commitment to providing health care in the patient's best interest in mind. Time Spent with Patient Time attestation: Total time spent providing and/or coordinating discharge services: Time spent: Greater than 30 minutes Exam Vital Signs Temp Pulse Resp BP Pulse Ox O2 Del Method O2 Flow Rate 97.8 F 88 20 94/65 92 L Room Air 3 08/14/24 04:00 08/14/24 04:00 08/14/24 04:00 08/14/24 04:00 08/14/24 04:00 08/14/24 04:00 08/09/24 18:06 FiO2 40 08/08/24 10:52 Narrative Exam General: No acute distress, well appearing, alert, interactive. HEENT: NC/AT, PERRL, EOMI, Good conjugate gaze, moist mucous membranes, oropharynx clear, hoarseness Neck: Supple, No masses, No adenopathy, carotid pulse 2+ bilaterally without bruits, No JVD, normal range of motion. Chest: Symmetrical, atraumatic, and with equal expansion , Nontender on palpation no deformity and no crepitus. CVS: S1 and S2 present, Regular rate and rhythm, No murmurs, rubs or gallops perceived during auscultation. Lungs: Normal respiratory effort, CTAB, no wheezing, rhonchi or rales perceived during auscultation, No intercostal or subcostal retraction. Abdomen : Soft, no tenderness to palpation, no guarding ,no rebound, +BS, no organomegaly. Extremities: No edema, warm well perfused, normal tone and ROM, strength and sensation intact, cap refill less than 2, +2 dp equal bilaterally, able to move all 4 extremities spontaneously. Skin: Intact, no rashes, no lesions, no erythema or jaundice noted Neuro: AOx4, cranial nerves II through XII intact, reflex symmetric and sensation normal, no focal neurologic deficits noted, GCS 15 Psych: Appropriate mood and affect. Discharge Plan Plan Patient Disposition: HOME (Self Care) Patient condition on transfer: Stable Care Plan Goals: Follow up with primary care physician within 1 week of discharge. You have been prescribed gabapentin 300mg at night time please take this medication every night for 2 more days if after that you still feel some symptoms of alcohol withdrawal continue to take for 3 more days. Should any symptoms recur or worsen please return the ED. Prescriptions/Referrals Prescriptions/Med Rec: New gabapentin 300 mg capsule 300 mg PO HS Qty: 5 0RF (DME) pen needle, diabetic 29 gauge needle See Rx Instructions .Route Qty: 100 0RF Rx Instructions: As directed Chloraseptic Warming 15 mg lozenge 15 mg PO BID PRN (Reason: sore throat) 7 Days Qty: 18 0RF Continued atorvastatin 40 mg tablet 40 mg PO HS Patient Comments: take 1 tablet by mouth once daily insulin glargine [Lantus Solostar U-100 Insulin] 100 unit/mL (3 mL) insulin pen 20 unit SUBCUT .am Patient Comments: inject 20 units subcutaneously every morning and 14 units subcutaneously every evening Referrals: No Primary/Family,Physician [Primary Care Provider] - Patient/Caregiver Discharge Instructions Meds to Beds: No Discharge Activity: activity as tolerated Education Materials: Abdominal Pain, Alcohol Withdrawal: What to Expect Print Language: Marshallese Stand Alone Forms: Karlene Award Info., Patient Portal Info Letter Discharge Order Discharge Orders: Discharge (Routine); Ordered 08/14/24 Ordered By: Keshia Vera Quality Discharge Quality Measures VTE prophylaxis Attestestation Attestation I attest that I was physically present for the evaluation, physical examination, lab and imaging review of the patient with the residents. I discussed the case with the residents and agree with the findings and plans of care as documented above. Val Prince MD
[2024-08-14] MEDS: INSULIN LISPRO (AdmeLOG) 1 UNIT/0.01 ML UNIT 2 UNIT SC (07:31)
[2024-08-14] MEDS: INSULIN LISPRO (AdmeLOG) 1 UNIT/0.01 ML UNIT SC (07:32)
[2024-08-14 08:00] VITALS: BP 105/72; PULSE 83; PULSE 89; RESP 19; TEMP 37.2; O2SAT 95
[2024-08-14] MEDS: GABAPENTIN 300 MG CAPSULE PO (08:38)
[2024-08-14] MEDS: POLYETHYLENE GLYCOL 17 GM PACKET PO (08:38)
[2024-08-14] MEDS: gemfibroziL 600 MG TABLET PO (08:38)
[2024-08-14] MEDS: PANTOPRAZOLE 40 MG TABLET PO (08:39)
[2024-08-14] MEDS: SENNA TABLET 1 TAB PO (08:39)
[2024-08-14] MEDS: INSULIN GLARGINE (Lantus) 5 UNIT/0.05 ML (PER 5 UNITS) 20 UNIT SC (08:39)
[2024-08-14] MEDS: ENOXAPARIN SOD INJ 40 MG/0.4 ML SYRINGE SC (08:40)
[2024-08-14] MEDS: INSULIN GLARGINE (Lantus) 5 UNIT/0.05 ML (PER 5 UNITS) 10 UNIT SC (10:51)
[2024-08-14 12:00] VITALS: BP 105/83; PULSE 100; PULSE 89; RESP 16; TEMP 36.5; O2SAT 97
== END 2024-08-14 15:37 | disposition home or self-care (01) | DRG 282 ==
LOC: SERX 08-03 01:14 → SERHOLD 08-03 01:26 → S2NX 08-03 03:23 → S2SX 08-05 12:40 → S2NX 08-11 08:05 → S3NX 08-13 23:23
PROVIDERS: Internal Medicine Critical Care Medicine; Physician Assistant; Student in an Organized Health Care Education/Training Program; Admitting Provider Student in an Organized Health Care Education/Training Program; Emergency Provider Emergency Medicine; Visit Provider Student in an Organized Health Care Education/Training Program
DX: K85.20 Alcohol induced acute pancreatitis without necrosis or infection (principal); E11.9 Type 2 diabetes mellitus without complications; G93.41 Metabolic encephalopathy; E78.1 Pure hyperglyceridemia; F10.231 Alcohol dependence with withdrawal delirium; E11.65 Type 2 diabetes mellitus with hyperglycemia; Y90.0 Blood alcohol level of less than 20 mg/100 ml; F17.210 Nicotine dependence, cigarettes, uncomplicated; J96.01 Acute respiratory failure with hypoxia; E78.5 Hyperlipidemia, unspecified; Z79.4 Long term (current) use of insulin; Z78.1 Physical restraint status; Z79.899 Other long term (current) drug therapy
CPT/HCPCS: 36415; 36600; 71045; 74177; 76705; 80053; 80061; 80069; 80307; 80320; 81001; 82140; 82746; 82747; 82803; 83605; 83690; 83735; 84100; 84132; 84145; 84443; 84478; 85025; 85610; 85730; 87040; 87205; 92526; 92610; 93005; 93225; 94002; 94003; 94640; 96361; 96374; 96375; 97162; 99285; A4216; A4649; J1100; J1200; J1650; J1815; J2060; J2250; J2405; J2470; J2560; J2704; J3010; J3411; J3475; J3490; J7030; J7042; J7050; J7120; Q9967; A9270; G0480